=== PATIENT | male | born 1970 | race Caucasian/White ===

== ENCOUNTER 2023-02-22 11:45 | Emergency (ER) | payer OTHER, SELFPAY ==
[2023-02-22 12:10] VITALS: BP 116/73; PULSE 86; RESP 18; TEMP 36.7; O2SAT 98
--- NOTE | 2023-02-22 12:11 | ED.EYEPROB ---
HPI - Eye Problem General Chief complaint: Eye Problems Stated complaint: Foreign Body in Eyes Source: patient and RN notes reviewed History of Present Illness HPI Narrative: 52 yo M presents to urgent care with complaints of bilateral eye irritation, worse on the right side. Pt states he was pulling insulation out of the bottom of a car when dust flew out and went in his eyes. Pt states he immediately irrigated both of his eyes. Pt states the pain is radiating to his brain. Does not wear contacts. Pt is unknown on the last Tdap. Related Data Home Medications Medication Instructions Recorded Confirmed albuterol sulfate 90 mcg/actuation inhalation 02/22/23 aerosol inhaler aspirin 81 mg tablet,delayed mg 02/22/23 release atorvastatin 40 mg tablet mg 02/22/23 budesonide-formoterol HFA 160 inhalation 02/22/23 mcg-4.5 mcg/actuation aerosol inhaler (Symbicort) carvedilol 6.25 mg tablet mg 02/22/23 glipizide 5 mg tablet mg 02/22/23 insulin glargine 100 unit/mL (3 unit subcut 02/22/23 mL) subcutaneous pen (Basaglar KwikPen U-100 Insulin) insulin lispro 100 unit/mL subcut 02/22/23 subcutaneous pen (Humalog KwikPen (U-100) Insulin) metformin 1,000 mg tablet mg 02/22/23 metoclopramide HCl 10 mg tablet mg 02/22/23 pantoprazole 40 mg tablet,delayed mg PO 02/22/23 02/22/23 release Allergies Allergy/AdvReac Type Severity Reaction Status Date / Time No Known Allergies Allergy Unverified 02/22/23 12:17 Review of Systems Review of Systems: CONSTITUTIONAL: Denies fever, chills, or sweats. EYES: bilateral eye irritation ENT: Denies otalgia and sore throat CARDIOVASCULAR: Denies chest pain, palpitations, or edema. RESPIRATORY: Denies cough or dyspnea. GASTROINTESTINAL: Denies abdominal pain, nausea, vomiting, or diarrhea. GENITOURINARY: Denies dysuria or hematuria. SKIN: Denies rash or itching. MUSCULOSKELETAL: Denies back pain, joint pain, or myalgia. NEUROLOGIC: Denies headache, numbness, or weakness. Pertinent positives per HPI. [facility] Family History Family History (Updated 09/20/12 @ 13:37 by DOCTOR UNKNOWN) Other Asthma Cerebrovascular accident Depression Diabetes mellitus Family history of arthritis Family history of hearing loss Family history of kidney disease Family history of lung cancer Family history of lung disease Family history of mental disorder Family history of migraine headaches Family history of seizure disorder Comments At the time of my signature, I reviewed and agree with the nursing past medical, surgical, social, and family history. There is no relevant family history pertinent to the patient complaint. Exam Narrative: GENERAL: This is a well-nourished, well-developed patient, in no apparent distress. HEAD: normocephalic, atraumatic. EYES: Sclera clear/white. Vision is grossly intact. Small black speck in the 7:00 position of the right cornea. Aggarwal lamp exam conducted on both eyes. Abrasion noted to the left cornea. Lid inversions performed on both with no acute findings. EARS: External ears normal, auditory canals clear and without drainage. Hearing grossly intact. NOSE: External nose normal with no obvious nasal discharge, nares without redness, no rhinorrhea. THROAT: Mucous membranes moist, posterior pharynx clear. NECK: Neck supple, non-tender without lymphadenopathy, masses or thyromegaly. CARDIOVASCULAR: Regular rate RESPIRATORY: No respiratory distress SKIN: warm, intact with no suspicious lesions or rash, good texture and turgor. NEURO: awake, alert, and oriented to person, place and time. There were no obvious focal neurologic abnormalities. Course Course Level of Care: Express Care Visit Vital Signs Vital signs: Vital Signs Temperature 98.1 F 02/22/23 12:10 Pulse Rate 86 02/22/23 12:10 Respiratory Rate 18 02/22/23 12:10 Blood Pressure 116/73 02/22/23 12:10 Pulse Oximetry 98 02/22/23 12:1
== END 2023-02-22 12:35 | disposition short-term general hospital (02) ==
PROVIDERS: Emergency Provider Nurse Practitioner Family; PCP Family Medicine
DX: T15.91XA Foreign body on external eye, part unspecified, right eye, initial encounter (principal); Z79.82 Long term (current) use of aspirin; Z79.4 Long term (current) use of insulin; Z79.899 Other long term (current) drug therapy
CPT/HCPCS: 99213; A9270; G0463

== ENCOUNTER 2023-06-14 08:41 | Emergency (ER) | payer OTHER, SELFPAY ==
[2023-06-14 08:54] VITALS: BP 131/87; PULSE 108; RESP 18; TEMP 36.5; O2SAT 96
--- NOTE | 2023-06-14 09:05 | ED.GENADULT ---
HPI - General Adult General Chief complaint: Headache Stated complaint: Pain in head down to nose Source: patient, RN notes reviewed and old records reviewed Mode of arrival: ambulatory Limitations: no limitations History of Present Illness HPI narrative: 52-year-old male patient presents with sudden onset right-sided head pain that woke patient from sleep. Patient states woke up and blow nose. Pt states it was extremely painful. Patient states had fluid leaking out of nose the rest of the night. Patient's rates headache 10/10 at this time with pain behind right eye, right head, right nose. MD complaint: Headache Onset (ago): hour(s) (8) Location: head Severity: severe Severity scale (1-10): >10 Quality: constant Relieving factors: none Exacerbating factors: none Related Data Home Medications Medication Instructions Recorded Confirmed albuterol sulfate 90 mcg/actuation See Rx Instructions .Route 02/22/23 02/22/23 aerosol inhaler .COMPLEX PRN sob aspirin 81 mg tablet,delayed 81 mg PO DAILY 02/22/23 02/22/23 release atorvastatin 40 mg tablet 40 mg PO DAILY 02/22/23 02/22/23 budesonide-formoterol HFA 160 See Rx Instructions .Route .COMPLEX 02/22/23 02/22/23 mcg-4.5 mcg/actuation aerosol inhaler (Symbicort) carvedilol 6.25 mg tablet 6.25 mg PO BID 02/22/23 02/22/23 glipizide 5 mg tablet 5 mg PO BID 02/22/23 06/14/23 insulin glargine 100 unit/mL (3 See Rx Instructions .Route .COMPLEX 02/22/23 02/22/23 mL) subcutaneous pen (Basaglar KwikPen U-100 Insulin) insulin lispro 100 unit/mL See Rx Instructions .Route .COMPLEX 02/22/23 02/22/23 subcutaneous pen (Humalog KwikPen (U-100) Insulin) metformin 1,000 mg tablet 1,000 mg PO BID 02/22/23 06/14/23 metoclopramide HCl 10 mg tablet 10 mg PO BID 02/22/23 06/14/23 pantoprazole 40 mg tablet,delayed 40 mg PO DAILY 02/22/23 02/22/23 release Allergies Allergy/AdvReac Type Severity Reaction Status Date / Time No Known Allergies Allergy Unverified 02/22/23 12:17 Review of Systems Constitutional: Constitutional: Reports no additional constitutional complaints, Denies body ache(s), Denies chills, Reports fatigue, Denies fever(s) and Reports headache(s) Eyes: Eyes: Reports no additional eye complaints, Denies blurry vision and Reports eye pain ( Right eye) ENT: Reports system reviewed and no additional complaints, except as documented, Denies vertigo, Denies dizziness, Denies ear discharge, Denies otalgia, Denies facial pain, Denies headache(s), Denies nasal congestion, Reports nasal discharge, Reports nose pain (right sided. ), Denies sinus pain, Denies sinus pressure and Denies sore throat Cardiovascular: Cardiovascular: Reports no additional cardiovascular complaints, Denies chest pain, Denies chest pain at rest, Denies rapid heart rate and Denies dyspnea Respiratory: Respiratory: Reports no additional respiratory complaints, Denies chest congestion, Denies cough, Denies pain on inspiration, Denies pain with cough and Denies dyspnea Gastrointestinal: Gastrointestinal: Denies abdominal pain, Denies diarrhea, Denies nausea and Denies vomiting Integumentary/Breasts: Skin/Breast: Denies rash Neurologic: Reports system reviewed and no additional complaints, except as documented, Denies vertigo, Denies dizziness and Reports headache(s) Endocrine: Endocrine: Denies fatigue [facility] Family History Family History Other Asthma Cerebrovascular accident Depression Diabetes mellitus Family history of arthritis Family history of hearing loss Family history of kidney disease Family history of lung cancer Family history of lung disease Family history of mental disorder Family history of migraine headaches Family history of seizure disorder Comments At the time of my signature, I reviewed and agree with the nursing past medical, surgical, social, and family history. There is no relevant family his
== END 2023-06-14 09:15 | disposition short-term general hospital (02) ==
PROVIDERS: Emergency Provider Registered Nurse; PCP Family Medicine
DX: R51.9 Headache, unspecified (principal); I20.9 Angina pectoris, unspecified; E78.00 Pure hypercholesterolemia, unspecified; I10 Essential (primary) hypertension; J44.9 Chronic obstructive pulmonary disease, unspecified; K76.0 Fatty (change of) liver, not elsewhere classified; E11.9 Type 2 diabetes mellitus without complications; Z85.028 Personal history of other malignant neoplasm of stomach; Z92.3 Personal history of irradiation
CPT/HCPCS: 99213; G0463

== ENCOUNTER 2023-06-14 09:39 | Emergency (ER) | payer OTHER, SELFPAY ==
--- NOTE | ~2023-06-14 | CT_ITS ---
EXAMINATION: CT brain wo con DATE: 06/14/2023 11:11 INDICATION: Right-sided headache. TECHNIQUE: Computed tomography (CT) of the head was performed without intravenous contrast. The mA wa s adjusted according to patient size. Iterative reconstruction technique was employed. The dose-lengt h product was 756.67 mGy-cm. COMPARISON: None FINDINGS: There is no intracranial hemorrhage, acute infarction, or abnormal intracranial mass lesion . The ventricles are normal in size. The paranasal sinuses are clear. The mastoid air cells are pradip l. The orbits are normal. IMPRESSION: 1. Normal brain. Reviewed, dictated and finalized at location A. EXPERIENCE ARCHITECT IMPRESSION: 1. Normal brain.
--- NOTE | ~2023-06-14 | XR_ITS ---
EXAMINATION: XR chest 2V DATE: 06/14/2023 11:01 INDICATION: Shortness of breath. Cough. TECHNIQUE: Frontal and lateral views of the chest were obtained. COMPARISON: Chest 2 views 12/16/2012, chest CT 12/16/2012 FINDINGS: There are peripheral airspace opacities in right upper lobe. No pleural effusion or pneumot horax. The heart size is normal. IMPRESSION: 1. Peripheral airspace opacities in right lung upper lobe, consistent with scarring versus pneumonia. Reviewed, dictated and finalized at location A. O CALLER IMPRESSION: 1. Peripheral airspace opacities in right lung upper lobe, consistent with scar ring versus pneumonia.
[2023-06-14 09:40] VITALS: BP 134/86; PULSE 100; RESP 16; TEMP 36.9; O2SAT 100
--- NOTE | 2023-06-14 10:15 | ECG_ITS ---
Measurements Intervals [place] Rate: 94 P: 53 [place]: 151 QRS: 34 QRSD: 89 T: 49 QT: 345 QTc: 432 Interpretive Statements SINUS RHYTHM BORDERLINE R WAVE PROGRESSION, ANTERIOR LEADS BORDERLINE ECG NO PREVIOUS ECG AVAILABLE FOR COMPARISON Electronically Signed On 06-14-2023 11:33:49 TEST FIXTURE ASSEMBLER by Ricardo Hodges D.O.
[2023-06-14 10:24] LABS: Basophils Absolute Auto 0.1 K/mm3 (0.0-0.1); Basophils Percent Auto 0.5 % (0.2-1.2); Eosinophils Absolute Auto 0.1 K/mm3 (0-0.3); Eosinophils Percent Auto 0.6 % (0-4.4); Hematocrit 43.4 % (42.0-52.0); Hemoglobin 14.9 g/dL (14.0-18.0); Immature Granulocyte Absolute 0.07 K/mm3 (0.00-0.031); Immature Granulocyte Percent A 0.4 % (0-0.5); Lymphocytes Absolute Auto 2.81 K/mm3 (0.9-3.2); Lymphocytes Percent Auto 17.3 % (18.3-44.2); Mean Corpuscular HGB Conc 34.3 g/dl (32-36); Mean Corpuscular Hemoglobin 30.1 pg (26-34); Mean Corpuscular Volume 87.7 fl (80-100); Mean Platelet Volume 10.9 fl (7.4-10.4); Neutrophils Absolute Auto 12.2 K/mm3 (1.3-6.7); Neutrophils Percent Auto 75.2 % (45.5-73.1); Platelet Count Result 268 k/mm3 (150-375); Red Blood Count 4.95 M/mm3 (4.6-6.20); Red Cell Distribution Width 12.7 % (11.5-14.5); White Blood Count 16.3 K/mm3 (4.5-10.0)
--- NOTE | 2023-06-14 10:30 | PC.NURSE ---
Pt to XRAY via stretcher at this time.
[2023-06-14 10:34] LABS: Alanine Aminotransferase 27 U/L (6-50); Albumin Level 4.1 g/dL (3.5-5.1); Alkaline Phosphatase 123 U/L (38-126); Anion Gap 11 mmol/L (8-16); Aspartate Amino Transferase 20 U/L (17-59); Bilirubin,Total 0.9 mg/dL (0.2-1.3); Blood Urea Nitrogen 13 mg/dL (9-20); Calcium 9.5 mg/dL (8.4-10.2); Carbon Dioxide 25 mmol/L (22-30); Chloride 101 mmol/L (98-107); Estimated CRCL calculation 96 ml/min; Estimated Glomerular Filt Rate > 60; Glucose 236 mg/dL (65-110); Sodium 137 mmol/L (137-145)
[2023-06-14 10:34] LABS: Influenza A QL RT-PCR Negative (Negative); Influenza B QL RT-PCR Negative (Negative); RSV RNA, RT-PCR Negative (Negative); SARS-CoV-2 RNA PCR Negative (Negative)
--- NOTE | 2023-06-14 10:34 | ED.HA ---
HPI - Headache General Chief Complaint: Headache Stated Complaint: HEADACHE,NASAL DRAINAGE Time Seen by Provider: 06/14/23 09:58 Source: patient Mode of arrival: ambulatory Limitations: no limitations History of Present Illness HPI Narrative: Patient is a 52-year-old male who presents the ED with multiple complaints. Patient reports having upper respiratory symptoms for the last 1 month including nasal drainage. He has had inflammation, redness, tenderness to his nose for that time. He states last night he developed a significant right-sided headache behind his right eye and face. He blew his nose aggressively at that time and reported having a significant amount of nasal drainage. States this improved his REED. He then states he woke up with a puddle of snot on his pillow. Today, the headache recurred and has been more persistent and severe. Mostly present in his right periorbital region. He has not taken anything for the pain. Denies vision changes, dizziness, lightheadedness. No history of migraines. He does also report having intermittent chest pain and upper back pain for the last 1 month. Denies changes in the today. Does report occasional shortness of breath. Denies fevers Related Data Home Medications Medication Instructions Recorded Confirmed albuterol sulfate 90 mcg/actuation See Rx Instructions .Route 02/22/23 02/22/23 aerosol inhaler .COMPLEX PRN sob aspirin 81 mg tablet,delayed 81 mg PO DAILY 02/22/23 02/22/23 release atorvastatin 40 mg tablet 40 mg PO DAILY 02/22/23 02/22/23 budesonide-formoterol HFA 160 See Rx Instructions .Route .COMPLEX 02/22/23 02/22/23 mcg-4.5 mcg/actuation aerosol inhaler (Symbicort) carvedilol 6.25 mg tablet 6.25 mg PO BID 02/22/23 02/22/23 glipizide 5 mg tablet 5 mg PO BID 02/22/23 06/14/23 insulin glargine 100 unit/mL (3 See Rx Instructions .Route .COMPLEX 02/22/23 02/22/23 mL) subcutaneous pen (Basaglar KwikPen U-100 Insulin) insulin lispro 100 unit/mL See Rx Instructions .Route .COMPLEX 02/22/23 02/22/23 subcutaneous pen (Humalog KwikPen (U-100) Insulin) metformin 1,000 mg tablet 1,000 mg PO BID 02/22/23 06/14/23 metoclopramide HCl 10 mg tablet 10 mg PO BID 02/22/23 06/14/23 pantoprazole 40 mg tablet,delayed 40 mg PO DAILY 02/22/23 02/22/23 release Allergies Allergy/AdvReac Type Severity Reaction Status Date / Time No Known Allergies Allergy Unverified 02/22/23 12:17 Review of Systems Review of Systems: CONSTITUTIONAL: Denies fever, chills, or sweats. ENT: see HPI. CARDIOVASCULAR: See HPI. RESPIRATORY: See HPI. GASTROINTESTINAL: Denies abdominal pain, nausea, vomiting. MUSCULOSKELETAL: See HPI. NEUROLOGIC: See HPI. All systems reviewed & are unremarkable except as noted in HPI and below PMFSH Family History Family History Other Asthma Cerebrovascular accident Depression Diabetes mellitus Family history of arthritis Family history of hearing loss Family history of kidney disease Family history of lung cancer Family history of lung disease Family history of mental disorder Family history of migraine headaches Family history of seizure disorder Exam Narrative: GENERAL: Well appearing, well-nourished, non-toxic, in no acute distress. HEAD: Normocephalic, atraumatic. EYES: PERRL/EOMI, conjunctiva clear. ENT: Exterior tip of nose mildly erythematous and indurated. Focal TTP. Deviated septum. No active drainage or evident focal abscess. Partially edentulous. RESPIRATORY: Airway patent, respirations nonlabored. Clear to auscultation bilaterally, no rales, rhonchi, wheezing. CARDIOVASCULAR: Regular rate and rhythm without murmurs, rubs, or gallops. MUSCULOSKELETAL: Moves all extremities. No gross deformities. SKIN: Warm, dry, normal color. NEURO: A&O X3. Speech clear. Cranial nerves II-XII grossly intact. Steady gait. No ataxic movements. No focal neurologic
[2023-06-14] MEDS: SODIUM CHLORIDE 0.9% IV 1,000 ML 999 ML IV CONT (10:56)
[2023-06-14] MEDS: diphenhydrAMINE HCl INJ 50 MG/ML VIAL 25 MG IV PUSH (10:56)
[2023-06-14] MEDS: METOCLOPRAMIDE HCL INJ 10 MG/2 ML VIAL IV PUSH (10:56)
[2023-06-14] MEDS: ACETAMINOPHEN 500 MG TABLET 1000 MG PO (10:57)
--- NOTE | 2023-06-14 11:19 | PC.NURSE ---
Main lab called at 1119 to add on D Dimer, PT INR PTT, and Trop I to pt's specimens in lab.
[2023-06-14 11:40] LABS: Troponin I < 0.012 ng/mL (0.000-0.034)
[2023-06-14 11:45] LABS: Prothrombin Time 13.4 Seconds (11.1-14.7)
[2023-06-14 11:46] LABS: Partial Thromboplastin Time 27.6 SECONDS (22.3-36.8)
[2023-06-14 11:53] VITALS: BP 130/88; PULSE 95; RESP 22; O2SAT 99
[2023-06-14 11:56] LABS: D Dimer 0.33 ug/mL (<0.48)
[2023-06-14 12:26] VITALS: BP 117/86; PULSE 87; RESP 19; O2SAT 98
[2023-06-14 13:21] VITALS: BP 111/89; PULSE 87; RESP 21; O2SAT 99
== END 2023-06-14 13:22 | disposition home or self-care (01) ==
PROVIDERS: Emergency Medicine; Emergency Provider Physician Assistant; PCP Family Medicine
DX: R51.9 Headache, unspecified (principal); J18.9 Pneumonia, unspecified organism; J34.0 Abscess, furuncle and carbuncle of nose; Z20.822 Contact with and (suspected) exposure to COVID-19; E11.9 Type 2 diabetes mellitus without complications; Z79.82 Long term (current) use of aspirin; Z79.4 Long term (current) use of insulin; Z79.84 Long term (current) use of oral hypoglycemic drugs; R94.31 Abnormal electrocardiogram [ECG] [EKG]
CPT/HCPCS: 36415; 70450; 71046; 80053; 84484; 85025; 85380; 85610; 85730; 87637; 93005; 96361; 96374; 96375; 99284; A9270; J1200; J2765; J7030

== ENCOUNTER 2024-12-07 11:57 | Emergency (ER) | payer OTHER, SELFPAY ==
--- OUTSIDE RECORDS SUMMARY | 2024-12-07 11:59 | XMS_ITS | Referral Summary ---
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 Comment: The ADA recommends reporting an estimated Average Glucose (eAG) with all Hemoglobin A1c results using the equation derived from a study of 507 normal and diabetic adults. Minority populations were underrepresented and children were not included. (Diabetes Care 31:4709-3692, 2008). The eAG is not equivalent to a fasting glucose. Blood 03/08/2024 12:1 5 AM CDT 03/08/2024 1:32 AM CDT Marianela Clancy MD LAB BLOOD ORDERABLES Final Res ult Performing Organization Address [facility] Co de Phone Number [facility] [address] [facility] [place] [address] * Lipid panel (03/08/2024 12:15 AM CDT) Cholesterol 148 30 - 199 mg/dL Comment: Interpretive Data Ages < or = 19 years Acceptable: <170 mg/dL Borderline high: 170-199 mg/dL High: >or= 200 mg/dL Ages > or = 20 years Desirable: <200 mg/dL Borderline high: 200-239 mg/dL High: >or= 240 mg/dL Literature References: 1. Expert Panel on Integrated Guidelines for Cardiovascular Health and Risk Reduction in Children and Adolescents. Pediatrics 2011;128:S213 2. NCEP Expert Panel. Circulation 2004;110:227 Current Interpretive Data was last revised on 2018. Triglycerides 106 <=149 mg/dL [facility] ([place]) Comment: Interpretive Data Ages < or = 9 years Acceptable: <75 mg/dL Borderline high: 75-99 mg/dL High: >or= 100 mg/dL Ages 10 to 20 years Acceptable: <90 mg/dL Borderline high: 90-129 mg/dL High: >or= 130 mg/dL Ages > or = 20 years Desirable: <150 mg/dL Borderline high: 150-199 mg/dL High: 200-499 mg/dL Very high: >or= 499 mg/dL Literature References: 1. Expert Panel on Integrated Guidelines for Cardiovascular Health and Risk Reduction in Children and Adolescents. Pediatrics 2011;128:S213 2. NCEP Expert Panel. Circulation 2004;110:227 Current Interpretive Data was last revised on 2018. HDL 50 >=40 mg/dL [facility] ([place]) Comment: Interpretive Data Ages < or = 19 years Acceptable: >45 mg/dL Borderline low: 40-45 mg/dL Low: <40 mg/dL Ages > or = 20 years Desirable: >or= 60 mg/dL Low: <40 mg/dL Literature References: 1. Expert Panel on Integrated Guidelines for Cardiovascular Health and Risk Reduction in Children and Adolescents. Pediatrics 2011;128:S213 2. NCEP Expert Panel. Circulation 2004;110:227 Current Interpretive Data was last revised on 2018. LDL, calculated 79 <=129 mg/dL [facility] ([place]) Comment: Interpretive Data Ages < or = 19 years Acceptable: <110 mg/dL Borderline high: 110-129 mg/dL High: >or= 130 mg/dL Ages > or = 20 years Optimal: <100 mg/dL Near optimal: 100-129 mg/dL Borderline high: 130-159 mg/dL High: >160 mg/dL Calculated using the Miguel Angel LDL-C estimating equation. This equation was implemented on 2024. Prior to this date LDL-C was estimated using the Friedewald equation. Literature References: 1. Expert Panel on Integrated Guidelines for Cardiovascular Health and Risk Reduction in Children and Adolescents. Pediatrics 2011;128:S213 2. NCEP Expert Panel. Circulation 2004;110:227 3. Miguel Angel Chavira et al. GRETA Cardiol. 2020 October 02;5(5):540-548. doi: 10.1001/[email or web address].2020.0013 Current Interpretive Data was last revised on 2024. Non-HDL Cholesterol 98 mg/dL [facility] ([place]) Comment: Interpretive Data Ages < or = 19 years Acceptable: <120 mg/dL Borderline high: 120-144 mg/dL High: >145 mg/dL Ages > or = 20 years When triglycerides are >200 mg/dL, Non-HDL cholesterol is a secondary target of therapy with treatment goals that are 30 mg/dL greater than the LDL cholesterol target. Literature References: 1. Expert Panel on Integrated Guidelines for Cardiovascular Health and Risk Reduction in Children and Adolescents. Pediatrics 2011;128:S213 2. NCEP Expert Panel. Circulation 2004;110:227 Current Interpretive Data was last revised on 2018. Chol/HDL ratio 3 [facility] ([place]) Blood 03/08/2024 12:1 5 AM CDT 03/08/2024 12:19 AM CDT us Marianela Clancy MD LAB BLOOD ORDERABLES Final Res ult [facility] ([place]) 1 [facility] [place] [address] * Albumin Creatinine Ratio, Urine (01/12/2023 10:01 AM CDT) Albumin Ur 20.0 mg/L [facility] ([place]) Comment: Interpretive Data No reference range established. Current interpretive data was last revised 2018. Testing performed by: [facility], [address] [place] [address], [place]., [address] Creatinine Ur 207.5 mg/dL [facility] ([place]) Comment: Interpretive Data No reference range established. Current interpretive data was last revised 2018. Testing performed by: [facility], [address] [place] [address]., [address] Albumin Creatinine Ratio, Ur 10 1 - 29 mg/g [facility] ([place]) Comment:Testing performed by : [address] [address] Urine 01/12/2023 10:0 1 AM CDT 01/12/2023 1:42 PM CDT Sommer Fenton NP LAB URINE ORDERABLES Final Resu lt [facility] ([place]) 1 [facility] [place] [address] * Hepatitis panel, acute (11/14/2022 7:48 AM CDT) Hep A IgM Nonreactive Nonreactive [facility] ([place]) Comment: Interpretive Data: If Hep A IgM Ab is reported as Equivocal, a new sample should be drawn in two weeks for testing. Current interpretive data was last revised on 19. Testing performed by: [address] [address] Hep B core IgM Nonreactive Nonreactive C ERNER [facility] ([place]) Comment: Interpretive Data If HepB Core IgM Ab is reported as Equivocal, a new sample should be drawn in two weeks for testing. Current interpretive data was last revised on 19. Testing performed by: [facility], [address] [place] [address]., [address] Hep C Ab Nonreactive Nonreactive [facility] ([place]) Comment: Interpretive Data Nonreactive: Antibodies to HCV not detected. Does NOT exclude the possibility of recent exposure to HCV. Equivocal: Equivocal for HCV antibodies. Supplemental molecular testing will be automatically performed to determine infection status in accordance with current CDC screening recommendations. Reactive: Positive for HCV antibodies. This may represent current or past HCV infection. Supplemental molecular testing will be automatically performed to determine current infection status in accordance with current CDC screening recommendations. Interpretive data was last revised on 2019. Testing performed by: [address] [address] HepBsAg Nonreactive Nonreactive [facility] ([place]) Comment:Testing performed by : [address] [address] Blood 11/14/2022 7:48 AM CDT 11/14/2022 10:35 AM CDT us Tamie CORDOBA LAB MICROBIOLOGY - GENER AL ORDERABLES Final Result [facility] [place]) [address] Department of Laboratories [place], [place] [id number] * COLONOSCOPY (09/14/2022 1:05 PM CDT) Anatomical Region Laterality Modality Other Narrative Procedure Note Dorothy Palmer MD - 09/14/2022 1:05 PM CDT [facility] Patient Name: Keaton Ortega Procedure Date: 09/14/2022 1:05 PM Date of : 1970 Admit Type: Outpatient Age: 51 Gender: Male Attending MD: Dorothy Palmer M.D. Room: [facility] ENDOSCOPY ROOM 1 Note Status: Finalized Patient Profile: This is a 51 year old male. History of adenomapolyps and inadequate colon preparation last year. Repeat colonoscopy today. Procedure: Colonoscopy Indications: High risk colon cancer surveillance: Personalhistory of colonic polyps, Last colonoscopy: February2022 Referring MD: El Reese M.D. Providers: Dorothy Palmer M.D. Impression: - Stool in the entire examined colon. - One 14 mm polyp in the descending colon, removed with a cold snare. Resected and retrieved. - Internal hemorrhoids. Recommendation: - Await pathology results. - Repeat colonoscopy in 6 months for surveillancewith 2 days colon preparation. Please followinstructions. Medicines: Monitored Anesthesia Care Complications: No immediate complications. Estimated Blood Loss: Estimated blood loss: none. Procedure: Pre-Anesthesia Assessment: - Prior to the procedure, a History and Physicalwas performed, and patient medications and allergieswere reviewed. The patient's tolerance of previous anesthesia was also reviewed. The risks andbenefits of the procedure and the sedation options and risks were discussed with the patient. All questions were answered, and informed consent was obtained. Prior Anticoagulants: The patient has taken noanticoagulant or antiplatelet agents. ASA Grade Assessment: II -A patient with mild systemic disease. After reviewing the risks and benefits, the patient was deemed in satisfactory condition to undergo the procedure. The benefits, risks and alternatives of theprocedure and sedation were discussed and informed consentwas obtained. All questions were answered. Please referto the signed informed consent document in the medical record. The bowel preparation used was Miralax and bisacodyl tablets via extended prep with split dose instruction. The scope was passed under directvision. The Pediatric Colonoscope [id number] was introduced through the anus and advanced to the the ileocecal valve. The quality of the bowelpreparation was inadequate. Bowel prep was administered using a split dose. Findings: The perianal and digital rectal examinations were normal. A moderate amount of semi-liquid stool was found in the entire colon, interfering with visualization. Lavage of the area was performed, resulting in incomplete clearance with fair visualization. A 14 mm polyp was found in the descending colon. The polyp wassessile. The polyp was removed with a cold snare. Resection and retrieval were complete. Internal hemorrhoids were found during retroflexion. The hemorrhoids were small. Electronically signed by Dorothy Palmer M.D. Dorothy Palmer M.D. 09/14/2022 3:11:44 PM Number of Addenda: 0 Note Initiated On: 09/14/2022 1:05 PM Procedure Code(s): --- Professional --- 570[address], Colonoscopy, flexible; with removal of tumor(s), polyp(s), or other lesion(s) by snare technique Diagnosis Code(s): --- Professional --- Z86.010, Personal history of colonic polyps K64.8, Other hemorrhoids D12.4, Benign neoplasm of descending colon CPT copyright 2020 [employer]. All rights reserved. The codes documented in this report are preliminary and upon halfway house counselor reviewmay be revised to meet current compliance requirements. Recognized by the [employer] for promoting quality in endoscopy Dorothy Palmer MD ENDOSCOPY PROCEDURES Final Result * Diabetic Eye Exam (07/19/2022) Historical Provider HEALTH MAINTENANCE Final Result from Last 3 Months or Most Recently Relevant to Health Maintenance Insurance [facility] Advance Directives For more information, please contact: [phone] * Full Code (Latest Code Status on File) Date Activated Date Inactivated Comments 07/03/2024 1:22 PM 07/03/2024 10:24 PM * Full Code Date Activated Date Inactivated Comments 03/07/2024 9:43 PM 03/11/2024 7:04 PM * Full Code Date Activated Date Inactivated Comments 09/06/2023 4:27 PM 09/10/2023 6:50 PM * Full Code Date Activated Date Inactivated Comments 01/30/2023 3:22 PM 01/31/2023 6:39 PM * Full Code Date Activated Date Inactivated Comments 11/14/2022 2:37 PM 11/15/2022 6:43 PM Care Teams Language Assistant Relationship Specialty Start Date End Date El Reese MD [address] [facility] [address] [address] PCP - General 11/29/20 Juju Handley DO Consulting Physician Cardiology 11/27/19 Nuvia Cazares MD [address] [facility] [address] [place] [address] Consulting Physician Cardiology 10/21/21 Dorothy Palmer MD [address] [place] [address] [address] [place] [address] Consulting Physician Gastroenterology 11/15/22
--- OUTSIDE RECORDS SUMMARY | 2024-12-07 11:59 | XMS_ITS | Clinical Summary ---
Author Organization [facility] Address [address] [address] Phone Care Team Providers Care Community Health Advocate Name Role Phone Deb Krishnan MD Unavailable [phone] El Reese MD Primary Care Provider [phone] Allergies No known active allergies Medications aspirin 81 MG Chewable Tablet Take 1 Tab by mouth daily. 100 Tab 07/10/19 18 Active ipratropium-albute rol (DUO-NEB) 0.5-2.5 (3) MG/3ML Solution 3 ML BY NEBULIZATION ROUTE 4 TIMES DAILY. 360 mL 12/24/19 20 Active metFORMIN (GLUCOPHAGE) 1000 MG TabletIndications: Type 2 diabetes mellitus without complication, with long-term current use of insulin Take 1 Tab by mouth 2 times daily. 180 Tab 2 12/23/19 20 Active albuterol 108 (90 Base) MCG/ACT Aerosol SolutionIndication s:Panlobular emphysema (HCC) take 1-2 Puffs by inhalation every 4 hours as needed for Wheezing. 1 Inhaler 12/23/19 20 Active fluticasone-salmet giovanni (ADVAIR) 250-50 MCG/DOSE AEROSOL POWDER, BREATH ACTIVATEDIndicatio ns:Panlobular emphysema (HCC) take 1 Puff by inhalation 2 times daily. 1 Each 3 12/23/19 20 Active atorvastatin (LIPITOR) 40 MG TabletIndications: Essential hypertension,Mixed hyperlipidemia Take 1 Tab by mouth daily. 90 Tab 12/23/19 20 Active SYMBICORT 160-4.5 MCG/ACT Aerosol TAKE 2 PUFFS BY INHALATION 2 TIMES DAILY. 10.2 g 5 01/03/20 20 Active sucralfate (CARAFATE) 1 GM Tablet Take 1 Tablet by mouth every 6 hours. 30 Tablet 09/14/19 21 Active omeprazole (PriLOSEC) 20 MG CAPSULE DELAYED RELEASE Take 1 Capsule by mouth daily. 30 Capsule 09/14/19 21 Active gabapentin (NEURONTIN) 300 MG Capsule Take 1 Capsule by mouth 3 times daily. 90 Capsule 01/10/20 22 Active naproxen (NAPROSYN) 500 MG Tablet Take 1 Tablet by mouth 2 times daily as needed for Moderate or more severe pain. 20 Tablet 08/11/19 24 Active triamcinolone (KENALOG) 0.1 % Cream Apply 3 times daily. 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 COPD (chronic obstructive pulmonary disease) Neuropathy, arm, unspecified laterality 01/27/20 17 Right upper quadrant abdominal pain 01/18/2017 History of bladder cancer 01/17/2017 Benign prostatic hyperplasia with urinary obstru ction 04/03/2016 Tobacco dependence syndrome 03/17/2016 Chronic bilateral low back pain without sciatica 03/17/2016 Dysuria 01/25/2016 Malignant neoplasm of overlapping sites of bladd er 07/28/2015 Chest pain in adult 07/05/2015 Neck pain 07/05/2015 Heart murmur 06/14/2015 Cough 06/14/2015 Type 2 diabetes mellitus, wi thout long-term current use of insulin 05/07/2015 HTN (hypertension) 05/07/2015 Anxiety 05/07/2015 Depressed 05/07/2015 Hyperlipidemia 05/07/2015 Gangrenous pneumonia 04/16/2014 Overview (07/03/2017): Overview: Necrotizing pneumonia Resolved Problems Problem Noted Date Diagnosed Date Resolved Date Acute diarrhea 06/14/2017 06/16/2017 Syncope and collapse 06/14/2017 018 Cryptococcal pneumonitis 07/28/2015 Encounters Date Type Department Care Team Description 09/10/2024 5:59 PM CDT - 09/10/2024 7:31 PM CDT Emergency [facility] [address] [place] [id number] Luke Serrato MD Rash Discharge Disposition: Discharged to home or Selfcare 09/10/2024 Travel from Last 3 Months Immunizations Immunization Administration Dates Next Due Influenza Vaccine greater than 3 yrs 03/06/2016 Influenza Vaccine, Quadrivalent, PF 02/20/2018,0 07/03/2017,06/16/2017() Pneumococcal Vaccine Adult - 23 Valent 8 Family History Medical History Relation Name Comments Asthma Father Diabetes Father Hypertension Father Diabetes Mother Heart Attack Mother Hypertension Mother Stroke Mother Relation Name Status Comments Father Mother Alive Social History Tobacco Use Types Packs/Day Years Used Date Smoking Tobacco: Former Cigarettes 1 20 Cigars Smokeless Tobacco: Never Tobacco Cessation:Counseling Given: Not Answered Alcohol Use Standard Drinks/Week Comments Not Currently 0 (1 standard drink = 0.6 oz pur e alcohol) PHQ-2 Answer Date Recorded Total Score - Questions 1-9 0 12/03 Education Answer Date Recorded What is the highest level of school you have completed or the highest degree you have received? 8th grade 12/23/2019 Sexually Active Control Partners Comments Yes Female Sex and Gender Information Value Date Recorded Sex Assigned at Male 01/23/2023 7:54 PM CDT Legal Sex Male 10:18 PM CDT Gender Identity Male 01/23/2023 7:54 PM CDT Sexual Orientation Not on file Last Filed Vital Signs Vital Sign Reading Time Taken Comments Blood Pressure 134/87 09/10/2024 7:15 PM CDT Pulse 104 09/10/2024 7:15 PM CDT Temperature 35.9 C (96.7 F) 09/10/2024 5:12 PM CDT Respiratory Rate 20 09/10/2024 5:12 PM CDT Oxygen Saturation 97% 09/10/2024 7:15 PM CDT Inhaled Oxygen Concentration - - Weight 89.4 kg (197 lb) 09/10/2024 5:12 PM CDT Height 175.3 cm (5' 9) 09/10/2024 5:12 PM CDT Body Mass Index 29.09 09/10/2024 5:12 PM CDT Plan of Treatment Health Maintenance Due Date Last Done Comments Diabetes: Eye Exam 1972 Hepatitis B Immunization (1 of 3 - 19+ 3-dose series) 12/16/1991 Zoster Immunization (1 of 2) 12/16/1991 Diabetes: Foot Exam 10/21/2015 10/20/2014 Cologuard 2017 Immunochemical Fecal Occult Blood 2017 Pneumococcal Immunization (50+ years) (2 of 2 - PCV) 07/03/2018 07/03/2017 SARS-COV-2 Immunization ( season) 2024 01/29/2022, 05/30/2021, 05/09/2021 Diabetes: Hemoglobin A1c 09/06/2024 024, 09/07/2023, 05/17/2023, Additional history exists Influenza Immunization (Season Ended) 2025 03/01/2020, 02/20/2018, 07/03/2017, Additional history exists Diabetes: Nephropathy Screening 09/10/2025 09/10/2024, 08/11/2023, 01/23/2023, Additional history exists Colonoscopy 09/14/2032 09/14/2022 Colorectal Cancer Screening 09/14/2032 Respiratory Syncytial Virus (RSV) Immunization (Adult) (1 - 1-dose 75+ series) 12/16/2047 Pneumococcal Immunization Combined Discontinued 07/03/2017 TdaP Immunization Completed 10/20/2019 Lung Cancer Screening Discontinued 11/11/2022 , 11/11/2022, 08/26/2021, Additional history exists Hepatitis C Virus (HCV) Screening Completed 11/14/2022, 10/12/2015 Human Papillomavirus (HPV) Immunization Aged Out No longer eligible based on patient's age to complete this topic Meningococcal Immunization (ACWY) Aged Out No longer eligible based on patient's age to complete this topic Rotavirus Immunization Aged Out No lo nger eligible based on patient's age to complete this topic Medical Devices Implanted Type Area Food Mixer Assembler Device Identifier Shelf Expiration Date Model / Serial / Lot Angioseal Vip 6fr - [id number] Implanted:Qty : 1 on 01/29/2017 by Nuvia Cazares MD at [facility] IMPLANT Right: Groin TERUMO / CARDIOVASCULAR SYSTEM 08/01/2017 [id number] / / [id number] Procedures Procedure Name Priority Date/Time Associated Diagnosis Comments CBC WITH AUTO DIFFERENTIAL STAT 09/10/2024 5:18 PM CDT CMP (COMPREHENSIVE METABOLIC PANEL) STAT 09/10/2024 5:18 PM CDT COMPLETE BLOOD COUNT (CBC) WITH DIFF STAT 09/10/2024 5:18 PM CDT URINE DRUG SCREEN STAT 09/10/2024 5:1 8 PM CDT URINALYSIS REFLEX IF INDICATED BY ABNORMAL RESULTS STAT 09/10/2024 5:18 PM CDT HEMOGLOBIN A1C W/ ESTIMATED GLUCOSE STAT 01/06/2022 7:[address] CHEST W CONTRAST STAT 09/28/2017 8 :08 PM CDT HEPATITIS PANEL ACUTE (AHP) Routine 10/12/2015 8:57 AM CDT History of cryptococcosis SOB (shortness of breath) AMB REFERRAL TO PODIATRY Routine 10/20/2014 from Last 3 Months or Most Recently Relevant to Health Maintenance Results * (ABNORMAL) URINALYSIS REFLEX IF INDICATED BY ABNORMAL RESULTS (09/10/2024 5:18 PM CDT) SPECIFIC GRAVITY 1.025 1.003 - 1.030 09/10/2024 6:25 PM CDT [facility] URINE PH 5.0 5.0 - 9.0 09/10/2024 6:25 PM CDT [facility] WBC ESTERASE Negative Negative 09/10/2024 6:25 PM CDT [facility] NITRITE Negative Negative 09/10/2024 6:25 PM CDT [facility] PROTEIN, RANDOM URINE 100 mg/dL(A) Negative 09/10/2024 6:25 PM CDT [facility] URINE GLUCOSE, QUAL 1000 mg/dL(A) Negative 09/10/2024 6:25 PM CDT [facility] URINE KETONES 50 mg/dL(A) Negative 09/10/2024 6:25 PM CDT [facility] UROBILINOGEN Normal Normal mg/dL 09/10/2024 6:25 PM CDT [facility] URINE BLOOD 10 /uL(A) Negative paris/ul 09/10/2024 6:25 PM CDT [facility] URINALYSIS COLOR Yellow 09/11/19 6:25 PM CDT [facility] URINALYSIS CLARITY Clear 09/10/2024 6:25 PM CDT [facility] WBC (Urine) 6-10(A) Negative, 0-5 /hpf 09/10/2024 6:25 PM CDT [facility] URINE RBC'S 0-2 Negative, 0-2 /hpf 09/10/2024 6:25 PM CDT [facility] EPITHELIAL CELLS Negative /lpf 09/11/19 6:25 PM CDT [facility] BACTERIA, URINE Negative Negative /hpf 09/10/2024 6:25 PM CDT [facility] URINE MUCOUS Few 09/10/2024 6:25 PM CDT [facility] CASTS 1-5/LPF Finely Granular Casts 1-5/LPF Hyaline Casts(A) Negative, 0-2/lpf, 3-5/lpf, 6-10/lpf, 11-20/lpf, >20/lpf /lpf 09/10/2024 6:25 PM CDT [facility] Urine URINE SPECIMEN OBTAINED BY CLEAN CATCH PROCEDURE / Unknown Non-Phlebotomy Collection / Unknown 09/10/2024 5:18 PM CDT 09/10/2024 5:58 PM CDT us Estevan Kirkpatrick Krishna PAC URINE ORDERABLES Fin al Result [facility] [address] [place] [address] * (ABNORMAL) CBC with Auto Differential (09/10/2024 5:18 PM CDT) WBC 12.19(H) 4.00 - 12.00 10(3)/mcL 09/10/2024 6:03 PM CDT [facility] RBC 5.18 4.40 - 5.80 10(6)/mcL 09/10/2024 6:03 PM CDT [facility] HEMOGLOBIN (HGB) 15.6 13.0 - 16.5 g/dL 09/10/2024 6:03 PM CDT [facility] HEMATOCRIT (HCT) 43.6 38.0 - 50.0 % 09/10/2024 6:03 PM CDT [facility] MCV 84.2 82.0 - 96.0 fL 09/10/2024 6:03 PM CDT [facility] MCH 30.1 26.0 - 32.0 pg 09/10/2024 6:03 PM CDT [facility] MCHC 35.8 31.0 - 36.0 g/dL 09/10/2024 6:03 PM CDT [facility] PLATELET COUNT 248 140 - 440 10(3)/mcL 09/10/2024 6:03 PM CDT [facility] RDW 12.4 11.8 - 15.5 % 09/10/2024 6:03 PM CDT [facility] MPV 11.5 8.0 - 12.6 fL 09/10/2024 6:03 PM CDT [facility] NEUTROPHILS 68.7(H) 40.0 - 68.0 % 09/10/2024 6:03 PM CDT [facility] LYMPHOCYTES 22.8 19.0 - 49.0 % 09/10/2024 6:03 PM CDT [facility] MONOCYTES 6.9 3.0 - 13.0 % 09/10/2024 6:03 PM CDT [facility] EOSINOPHILS 0.9 0.0 - 8.0 % 09/10/2024 6:03 PM CDT [facility] BASOPHILS 0.7 0.0 - 1.0 % 09/10/2024 6:03 PM CDT [facility] ABSOLUTE NEUTROPHILS 8.38(H) 1.40 - 5.30 10(3)/mcL 09/10/2024 6:03 PM CDT [facility] ABSOLUTE LYMPHOCYTES 2.78 0.90 - 3.30 10(3)/mcL 09/10/2024 6:03 PM CDT [facility] ABSOLUTE MONOCYTES 0.84 0.10 - 0.90 10(3)/mcL 09/10/2024 6:03 PM CDT [facility] ABSOLUTE EOSINOPHIL 0.11 0.00 - 0.50 10(3)/mcL 09/10/2024 6:03 PM CDT [facility] ABSOLUTE BASOPHILS 0.08 0.00 - 0.10 10(3)/mcL 09/10/2024 6:03 PM CDT [facility] NRBC PER 100 WBC 0 09/11/19 25 6:03 PM CDT [facility] Blood Venipuncture / Unknown 09/10/2024 5:18 PM CDT 09/10/2024 5:59 PM CDT us Estevan Keller PAC HEMATOLOGY ORDERABLE S Final Result [facility] [address] [place] [address] * (ABNORMAL) Comprehensive Metabolic Panel (Cmp) [id number] (09/10/2024 5:18 PM CDT) SODIUM 133(L) 136 - 145 mmol/L 09/10/2024 6:26 PM CDT [facility] POTASSIUM 3.4(L) 3.5 - 5.1 mmol/L 09/10/2024 6:26 PM CDT [facility] CHLORIDE 101 98 - 107 mmol/L 09/10/2024 6:26 PM T [facility] CO2, VENOUS 21(L) 22 - 30 mmol/L 09/10/2024 6:26 PM CDT [facility] ANION GAP 14.4 <18.0 mmol/L 09/10/2024 6:26 PM CDT [facility] GLUCOSE 278(H) 70 - 99 mg/dL 09/10/2024 6:26 PM CDT [facility] BUN 11 8 - 26 mg/dL 09/10/2024 6:26 PM T [facility] CREATININE, BLOOD 1.04 0.70 - 1.30 mg/dL 09/10/2024 6:26 PM CDT [facility] BUN/CREATININE RATIO 11(L) 12 - 20 ratio 09/10/2024 6:26 PM CDT [facility] TOTAL PROTEIN 7.9 6.0 - 8.0 g/dL 09/10/2024 6:26 PM CDT [facility] ALBUMIN 4.2 3.5 - 5.0 g/dL 09/10/2024 6:26 PM T [facility] A/G RATIO 1.1 1.0 - 2.2 09/10/2024 6:26 PM CDT [facility] CALCIUM 9.1 8.7 - 10.5 mg/dL 09/10/2024 6:26 PM CDT [facility] T BILI 0.9 0.2 - 1.2 mg/dL 09/10/2024 6:26 PM CDT [facility] SGOT (AST) 34 <43 U/L 09/10/2024 6:26 PM CDT [facility] SGPT (ALT) 34 <56 U/L 09/10/2024 6:26 PM CDT [facility] ALKALINE PHOSPHATASE 123 40 - 150 U/L 09/10/2024 6:26 PM CDT [facility] GFR, ESTIMATED >60 >=60 09/10/2024 6:26 PM CDT [facility] Comment: Creatinine Clearance is the preferred criteria for selecting drug dose adjustments in renally impaired patients. The GFR is provided as additional pertinent clinical information. GFR is reported in mL/min/1.73 sq m. Calculation based on the Chronic Kidney Disease Epidemiology Collaboration (CKD- EPI) equation refit without adjustment for race. GFR, EST. >60 >=60 025 6:26 PM CDT [facility] GFR, EST. NONAFRICAN >60 >=60 09/10/2024 6:26 PM CDT [facility] Blood Venipuncture / Unknown 09/10/2024 5:18 PM CDT 09/10/2024 5:59 PM CDT Estevan Keller PAC CHEMISTRY ORDERABLES Final Result [facility] [address] [place] [address] * (ABNORMAL) Urine Drug Screen (09/10/2024 5:18 PM CDT) UR AMPHETAMINE DETECTED(A) NON DETECTED 09/10/2024 6:26 PM CDT [facility] Comment: FOR MEDICAL USE ONLY. CUTOFF CONCENTRATION FOR DETECTED RESULT: AMPHETAMINE: 500 NG/ML UR BENZODIAZEPINES NON DETECTED NON DETECTED 09/10/2024 6:26 PM CDT [facility] Comment: FOR MEDICAL USE ONLY. CUTOFF CONCENTRATION FOR DETECTED RESULT: BENZODIAZAPINE: 200 NG/ML UR COCAINE METABOLITE DETECTED(A) NON DETECTED 09/10/2024 6:26 PM CDT [facility] Comment: FOR MEDICAL USE ONLY. CUTOFF CONCENTRATION FOR DETECTED RESULT: COCAINE: 150 NG/ML UR OPIATES NON DETECTED NON DETECTED 09/10/2024 6:26 PM CDT [facility] Comment: FOR MEDICAL USE ONLY. CUTOFF CONCENTRATION FOR DETECTED RESULT: OPIATES: 300 NG/ML UR PHENCYCLIDINE NON DETECTED NON DETECTED 09/10/2024 6:26 PM CDT [facility] Comment: FOR MEDICAL USE ONLY. CUTOFF CONCENTRATION FOR DETECTED RESULT: PCP: 25 NG/ML UR CANNABINOID DETECTED(A) NON DETECTED 09/10/2024 6:26 PM CDT [facility] Comment: FOR MEDICAL USE ONLY. CUTOFF CONCENTRATION FOR DETECTED RESULT: THC (MARIJUANA): 50 NG/ML UR BARBITURATE NON DETECTED NON DETECTED 09/10/2024 6:26 PM CDT [facility] Comment: FOR MEDICAL USE ONLY. CUTOFF CONCENTRATION FOR DETECTED RESULT: BARBITUATES: 200 NG/ML UR FENTANYL NON DETECTED NON DETECTED 09/10/2024 6:26 PM CDT [facility] Comment: FOR MEDICAL USE ONLY. CUTOFF CONCENTRATION FOR DETECTED RESULT: FENTANYL: 1.0 NG/ML Urine Non-Phlebotomy Collection / Unknown 09/10/2024 5:18 PM CDT 09/10/2024 5:58 PM CDT us Estevan Keller PAC URINE ORDERABLES Fin al Result [facility] [address] [place] [address] * (ABNORMAL) Hemoglobin A1C w/ Estimated Glucose (01/06/2022 7:31 PM CDT) HGB-A1C 6.5(H) 4.0 - 6.0 % 01/06/2022 11:01 PM CDT [facility] Est Average Glucose 139.9 mg/dL 01/06/2022 11:01 PM CDT [facility] Blood Venipuncture / Unknown 01/06/2022 7:31 PM CDT 01/06/2022 7:52 PM CDT Narrative [facility] - 01/06/2022 11:01 PM CDT HEMOGLOBIN A1C: DIABETIC PATIENTS: WELL-CONTROLLED: 6.2 - 7.0 INTERMEDIATE WELL-CONTROLLED: 7.0 - 9.0 POORLY-CONTROLLED: >9.0 us Estefani Funes APRN, CNP CHEMISTRY ORDERABLES Final Result [facility] [address] [place] [address] * CT CHEST W CONTRAST (09/28/2017 8:08 PM CDT) Anatomical Region Laterality Modality Chest N/A Computed Tomogra phy 09/28/2017 8:47 PM CDT Impressions 09/28/2017 8:50 PM CDT IMPRESSION: No acute finding. Narrative 09/28/2017 8:50 PM CDT EXAM DESCRIPTION: CT CHEST W CONTRAST COMPLETED DATE/TIME: 09/28/2017 8:09 pm REASON FOR STUDY: Midsternal chest pain and weakness, recently discharged from hospital for pneumonia TECHNIQUE: CT scan of the chest performed with intravenous contrast using helical scanning technique with dynamic intravenous contrast injection. Reconstructed coronal and sagittal MPR images reviewed. All images stored on PACS. Automated exposure control was used as a dose optimization technique for this examination. CONTRAST TYPE/DOSE: 100 mL of Isovue 370 contrast were intravenously injected at the right forearm. COMPARISON: 08/30/2017 FINDINGS: LUNGS: Again seen is peripheral nodular scarring in the right upper lobe. Minimal dependent atelectasis in the right lung base. There is no suspicious nodule, mass, or infiltrate. PLEURA: No effusion. No pneumothorax. MEDIASTINUM/ALIZA: No identified masses or abnormal nodes. HEART: Heart size is normal with no pericardial effusion. VASCULATURE: No thoracic aortic aneurysm. AXILLA: No adenopathy. CHEST WALL: No masses. No subcutaneous air. HARDWARE/LINES/TUBES: None. UPPER ABDOMEN: No significant abnormality. MUSCULOSKELETAL: No significant abnormality. OTHER: No other significant abnormality. THIS IS AN ELECTRONICALLY VERIFIED FINAL REPORT 09/28/2017 8:47 PM - Electronically signed by Reese Elizalde M.D. DS: DAMON Report ID: [id number] Reading Location: [id number] Procedure Note Reese Elizalde MD - 09/28/2017 EXAM DESCRIPTION: CT CHEST W CONTRAST COMPLETED DATE/TIME: 09/28/2017 8:09 pm REASON FOR STUDY: Midsternal chest pain and weakness, recently discharged from hospital for pneumonia TECHNIQUE: CT scan of the chest performed with intravenous contrast using helical scanning technique with dynamic intravenous contrast injection. Reconstructed coronal and sagittal MPR images reviewed. All images stored on PACS. Automated exposure control was used as a dose optimization technique for this examination. CONTRAST TYPE/DOSE: 100 mL of Isovue 370 contrast were intravenously injected at the right forearm. COMPARISON: 08/30/2017 FINDINGS: LUNGS: Again seen is peripheral nodular scarring in the right upper lobe. Minimal dependent atelectasis in the right lung base. There is no suspicious nodule, mass, or infiltrate. PLEURA: No effusion. No pneumothorax. MEDIASTINUM/ALIZA: No identified masses or abnormal nodes. HEART: Heart size is normal with no pericardial effusion. VASCULATURE: No thoracic aortic aneurysm. AXILLA: No adenopathy. CHEST WALL: No masses. No subcutaneous air. HARDWARE/LINES/TUBES: None. UPPER ABDOMEN: No significant abnormality. MUSCULOSKELETAL: No significant abnormality. OTHER: No other significant abnormality. THIS IS AN ELECTRONICALLY VERIFIED FINAL REPORT 09/28/2017 8:47 PM - Electronically signed by Reese Elizalde M.D. DS: DS Report ID: [id number] Reading Location: [id number] IMPRESSION: No acute finding. Estevan Adhikari ENTERPRISE ENGINEER, INTENSIVE CARE UNIT NURSE IMG CT ORDERABLES Final Result * HEPATITIS PANEL ACUTE (AHP) (10/12/2015 8:57 AM CDT) HEPATITIS A IGM ANTIBODY NON DETECTED NON DETECTED 10/12/2015 11:11 PM CDT [facility] Comment: IGM Antibodies to HAV not detected. Does not exclude early acute or recovered HAV infection. HEP B CORE AB (IGM) NON DETECTED NON DETECTED 10/12/2015 11:11 PM CDT [facility] Comment: IGM anti-HBC not detected. Does not exclude the possibility of exposure to or infection with HBV. HEPATITIS B SURFACE ANTIGEN NON DETECTED NON DETECTED 10/12/2015 11:11 PM CDT [facility] hepatitis C antibody 0.23 <1 S/CO 10/12/2015 11:11 PM CDT [facility] Comment: Signal/Cutoff ratio < 0.79 is Nondetected Signal/Cutoff ratio 0.80-0.99 is Grayzone Signal/Cutoff ratio > 0.99 is Detected Supplemental assays are recommended if signal/cutoff ratio is >/=1.00. Signal/cutoff ratio result >/= 5.00 is 97% predictive of positivity for recombinant immunoblot assay (RIBA) and will be reported to the [place] Department of Public Health as required. Blood specimen (specimen) Non-Phlebotomy Collection / Unknown 10/12/2015 8:57 AM CDT 10/12/2015 10:55 AM CDT us Ramos Davalos MD HEMATOLOGY ORDERABLES Fi nal Result [facility] [address] [place] [address] * AMB REFERRAL TO PODIATRY (10/20/2014) us Diana Cortes MD OUTPATIENT REFERRALS Sara l Result from Last 3 Months or Most Recently Relevant to Health Maintenance Insurance MEDICAID [facility] Advance Directives * Full Code (Latest Code Status on File) Date Activated Date Inactivated Comments 01/06/2022 10:28 PM 01/09/2022 4:02 PM CPR-Full Jyothi tment: FULL ARREST: Attempt Resuscitation/CPR wit intubation and mechanical ventilation. PRE-ARREST: Use entire range of life support measures to stabilize the patient. * Full Code Date Activated Date Inactivated Comments 09/29/2017 10:46 AM 10/01/2017 12:53 PM CPR-Full T reatment: FULL ARREST: Attempt Resuscitation/CPR wit intubation and mechanical ventilation. PRE-ARREST: Use entire range of life support measures to stabilize the patient. * Full Code Date Activated Date Inactivated Comments 06/26/2017 11:44 AM 08/16/2017 8:14 PM * Full Code Date Activated Date Inactivated Comments 06/14/2017 9:09 PM 06/16/2017 7:37 PM CPR-Full [place] atment: FULL ARREST: Attempt Resuscitation/CPR wit intubation and mechanical ventilation. PRE-ARREST: Use entire range of life support measures to stabilize the patient. * Full Code Date Activated Date Inactivated Comments 02/01/2017 8:35 AM 06/14/2017 2:53 PM Care Teams Community Health Advocate Relationship Specialty Start Date End Date El Reese MD [address] [facility] [address] [place] [address] PCP - General Family Medicine 09/13/20 Deb Krishnan MD Consulting Physician Urology 04/03/16
--- OUTSIDE RECORDS SUMMARY | 2024-12-07 11:59 | XMS_ITS | Encounter Summary ---
Author Organization [facility] Address [address] [facility] [place] [address] Care Team Providers Care Rubber Grinder Name Role Phone El Reese MD Primary Care Provider [phone] Reason for Visit * Reason Comments Refill Request Encounter Details Date Type Department Care Team (Late st Contact Info) Description 10/28/[address] [address] Flash Calvillo MD [address] [place] [address] [place] [phone] Refill Request Social History Tobacco Use Types Packs/Day Years Used Date Smoking Tobacco: Every Day Cigarettes Cigars Smokeless Tobacco: Never Alcohol Use Standard Drinks/Week Comments Yes 0 (1 standard drink = 0.6 oz pur e alcohol) socially Sex and Gender Information Value Date Recorded Sex Assigned at Not on file Legal Sex Male 1:34 PM CDT Gender Identity Not on file Sexual Orientation Not on file documented as of this encounter Plan of Treatment Not on file documented as of this encounter Visit Diagnoses Not on filedocumented in this encounter Additional Health Concerns Infection Onset Date Last Indicated Resolved Time COVID-19 Under Investigation 09/12/2024 09/12/2024 09/12/2024 1:20 PM CDT documented as of this encounter Care Teams Rubber Grinder Relationship Specialty Start Date End Date El Reese MD [address] [facility] [place] [id number] PCP - General Family Medicine 05/11/20 documented as of this encounter
--- OUTSIDE RECORDS SUMMARY | 2024-12-07 11:59 | XMS_ITS | Clinical Summary ---
Author Organization [facility] Address [address] [facility] [place] [address] Care Team Providers Care Network Announcer Name Role Phone El Reese MD Primary Care Provider [phone] Source Comments [facility] [facility] [facility],non-owned Affiliates and Associated Physician Practices is amultiple site organization consisting of ambulatory clinics and hospital sitesin [place], [place], [place] and [place]. This disclosure is being madepursuant to the Care Everywhere program and may not contain all information available regarding this patient. Last updated 18.[employer] Allergies No known active allergies Medications * Be aware that medications may not be up to date on this document. Alwaysverify current medications with the patient. tamsulosin (FLOMAX) 0.4 MG capsule Take 0.4 mg by mouth once daily 0 Active montelukast (SINGULAIR) 10 MG tablet Take 10 mg by mouth at bedtime Active omeprazole (PRILOSEC) 20 MG capsule Take 20 mg by mouth daily before breakfast Active calcium carbonate (TUMS) 500 MG chew tablet Take 1 tablet by mouth daily with breakfast 0 Active ALPRAZolam (XANAX) 1 MG tablet Take 1 tablet by mouth every 8 hours 3 Active benzonatate (TESSALON) 100 MG capsule Take 100 mg by mouth 0 Active fluticasone propionate (FLONASE) 50 MCG/ACT nasal spray 1-2 SPRAYS EACH NOSTRIL DAILY FOR NASAL CONGESTION AND ALLERGIES. 0 Active HYDROcodone-acet aminophen (NORCO) 5-325 MG tablet Take 1 tablet by mouth 0 Active BASAGLAR KWIKPEN (BASAGLAR) pen 0 Active insulin glargine (LANTUS) vial 3 Active atorvastatin (LIPITOR) 40 MG tablet Take 1 tablet by mouth every 24 hours 3 Active traZODone (DESYREL) 50 MG tablet 0 Active albuterol-ipratr opium (DUO-NEB) 0.5-2.5 (3) MG/3ML nebulizer solution 0 Active ADVOCATE INSULIN SYRINGE 31G X 5/16 0.5 ML syringe USE 1 SYRINGE FOR INSULIN INJECTION FOUR TIMES A DAY DIRECTED BY PHYSICIAN 9 Active B-D UF III MINI PEN NEEDLES 31G X 5 MM needle 0 Active tiotropium (SPIRIVA RESPIMAT) 2.5 MCG/ACT inhaler Inhale 2 puffs by mouth once daily 3 Inhaler 4 0 Active dilTIAZem ER 24hr (TIAZAC) 240 MG capsule Take 240 mg by mouth once daily Active SYMBICORT 160-4.5 MCG/ACT inhaler 0 Active gabapentin (NEURONTIN) 300 MG capsule 0 Active isosorbide mononitrate CR 24hr (IMDUR) 30 MG tablet 0 Active lisinopril (PRINIVIL; ZESTRIL) 10 MG tablet 0 Active metFORMIN (GLUCOPHAGE) 1000 MG tablet 0 Active NICOTINE STEP 2 14 MG/24HR patch 0 Active moxifloxacin (Vigamox) 0.5 % ophthalmic solution Instill 1 (one) drop into right eye 4 times daily 3 mL 3 Active ofloxacin (Ocuflox) 0.3 % ophthalmic solution Instill 1 (one) drop into right eye 4 times daily 5 mL 3 Active Active Problems Problem Noted Date Diagnosed Date Bicuspid aortic valve 03/02/2020 Assessment & Plan (03/02/2020 9:46 AM CDT): Not seen on previous ECHO. Follow up with Dr. Hill in 2 months. Coronary vasospasm 03/02/2020 Assessment & Plan (03/02/2020 9:48 AM CDT): CCB and Nitrates. Imdur increased in clinic for ongoing chest discomfort. Syncope and collapse 01/25/2020 Assessment & Plan (03/02/2020 9:41 AM CDT): Unclear Etiology. No reoccurrence since discharge, suspected secodary to hypovolemia in the setting of dehydration. Event monitor is at home, he was given new strips in clinic today to complete wearing his monitor. Hyperglycemia 01/25/2020 Chest pain 01/25/2020 Assessment & Plan (03/02/2020 9:47 AM CDT): Coronary Vascospam versus worsening ischemia versus pleural: ECHO from 01/2020 shows no new all motion abnormalities. Typical and atypical features. History of chest discomfort associated with cryptococcus PNA in the past. CT of chest pending per Pulm. [facility] In 2017 with coronary vasospasm otherwise normal coronaries. On CCB. Increased Imdur in clinic today. EKG NSR with no acute findings. Stress Test ordered to rule out ischemia. Pt was off his medications for some time, and has risk factors, continues to smoke, HLD, DMII. Continue ASA, statin, diltiazem, Imdur increased today in clinic. Encounters Date Type Department Care Team Description 09/12/2024 11:34 AM CDT - 09/12/2024 10:29 PM CDT Emergency [facility] EMERGENCY DEPARTMENT [address] [place] [id number] Ari Echavarria MD Byrne, Laurie E, MD Hyperglycemia (Primary Dx); Paresthesias; Generalized abdominal pain; Chest pain, unspecified type Discharge Disposition: Home or Self Care 09/12/2024 Travel from Last 3 Months Immunizations Immunization Administration Dates Next Due INFLUENZA VACCINE, TRIV. (AF LURIA, FLUZONE TRIVALENT; 6MO+) (IIV3) 03/06/2016 INFLUENZA VACCINE, QUADR. (F LUZONE; FLULAVAL; FLUARIX; AFLURIA QUADRIVALENT; 6MO+), 0.5 ML (IIV4) 03/01/2020,02/20/2018,07/03/2017 PNEUMOCOCCAL PPSV23 07/03/2017 TDAP (7yrs+) 10/20/2019 Family History Medical History Relation Name Comments CAD (Coronary Artery Disease) Father CAD (Coronary Artery Disease) Mother Relation Name Status Comments Father Mother Social History Tobacco Use Types Packs/Day Years Used Date Smoking Tobacco: Former Cigarettes Cigars Smokeless Tobacco: Never Tobacco Cessation:Counseling Given: Not Answered Alcohol Use Standard Drinks/Week Comments Yes 0 (1 standard drink = 0.6 oz pur e alcohol) socially Sex and Gender Information Value Date Recorded Sex Assigned at Not on file Legal Sex Male 1:34 PM CDT Gender Identity Not on file Sexual Orientation Not on file Last Filed Vital Signs Vital Sign Reading Time Taken Comments Blood Pressure 102/65 09/12/2024 9:00 PM CDT Pulse 77 09/12/2024 7:00 PM CDT Temperature 36.4 C (97.5 F) 09/12/2024 11:14 AM CDT Respiratory Rate 16 09/12/2024 7:00 PM CDT Oxygen Saturation 98% 09/12/2024 9:00 PM CDT Inhaled Oxygen Concentration - - Weight 88 kg (194 lb) 09/12/2024 11:14 AM CDT Height 175.3 cm (5' 9) 09/12/2024 11:14 AM CDT Body Mass Index 28.65 09/12/2024 11:14 AM CDT Plan of Treatment Health Maintenance Due Date Last Done Comments COLOGUARD (AGES 45-75) - COLON CA SCREENING 1972 CT COLONOGRAPHY - COLON CA SCREENING 1972 FIT - COLON CA SCREENING 1972 FLEX SIG - COLON CA SCREENING 1972 HEPATITIS B VACCINE (1 of 3 - 19+ 3-dose series) 12/16/1991 PNEUMOCOCCAL VACCINE 50+ (2 of 2 - PCV) 07/03/2018 07/03/2017 ZOSTER VACCINE (1 of 2) 2022 COVID-19 VACCINE (4 - season) 2024 01/29/2022, 05/30/2021, 05/09/2021 DEPRESSION SCREENING 06/04/2024 INFLUENZA VACCINE (#1) 2025 , 02/20/2018, 07/03/2017, Additional history exists DTAP/TDAP/TD VACCINES (2 - Td or Tdap) 10/19/2029 10/20/2019 COLON MONITORING 09/14/2032 09/14/2022 COLONOSCOPY - COLON CA SCREENING 09/14/2032 09/14/2022 Colorectal Cancer Screening 09/14/2032 HEPATITIS C SCREENING Completed 11/14/2022, 016 HIV SCREENING Completed 09/12/2024 HIB VACCINE Aged Out No longer eligi ble based on patient's age to complete this topic HPV VACCINE Aged Out No longer eligi ble based on patient's age to complete this topic MENINGOCOCCAL (Group B) VACCINE SHARED DECISION-MAKING Aged Out No longer eligible based on patient's age to complete this topic MENINGOCOCCAL GROUPS A/C/Y/W VACCINE Aged Out No longer eligible based on patient's age to complete this topic Procedures Procedure Name Priority Date/Time Associated Diagnosis Comments CARDIAC EKG ORDER 09/15/2024 2:2 3 PM CDT GLUCOSE - POINT OF CARE Routine 09/13/19 25 6:32 PM CDT GLUCOSE - POINT OF CARE Routine 09/13/19 25 4:[address] ANGIO AORTA FOR DISSECTION STAT 09/12/2024 2:14 PM CDT Paresthesias Chest pain, unspecified type BLOOD GASES ARNULFO + COOX PANEL STAT 09/12/2024 1:47 PM CDT HYDROXYBUTYRATE BETA STAT 09/12/2024 1:47 PM CDT TROPONIN-I HIGH SENSITIVE REFLEX 1HOUR Timed 09/12/2024 1:47 PM CDT EKG 12-LEAD STAT 09/12/2024 1:13 PM CDT Paresthesias HIV-1 HIV-2 ANTIBODY + HIV P24 AG PANEL STAT 09/12/2024 12:30 PM CDT SYPHILIS ANTIBODY CASCADING REFLEX STAT 09/12/2024 12:30 PM CDT XR CHEST 1VW PORTABLE STAT 09/12/2024 12:30 PM CDT Paresthesias VITAMIN B12 LEYLA 09/12/2024 12:24 PM CDT SARS-COV-2 (COVID-19)+INFLU A+B PCR RAPID STAT 09/12/2024 12:24 PM CDT TROPONIN-I HIGH SENSITIVE BASELINE + 1HR STAT 09/12/2024 12:23 PM CDT MAGNESIUM BLOOD STAT 09/12/2024 12:23 PM CDT BASIC METABOLIC PANEL (CALCIUM TOTAL) STAT 09/12/2024 12:23 PM CDT CBC W AUTO DIFFERENTIAL STAT 09/13/19 12:23 PM CDT from Last 3 Months Results * CARDIAC EKG ORDER (09/15/2024 2:23 PM CDT) Narrative 09/15/2024 2:23 PM CDT Ordered by an unspecified provider. us Scanned Document CARDIAC SERVICES ORDERABLES Fin al Result * (ABNORMAL) GLUCOSE - POINT OF CARE (09/12/2024 6:32 PM CDT) Only the most recent of2 resultswithin the time period is included. Glucose WB/POC 223(H) 70 - 99 mg/dL 09/12/2024 8:41 PM CDT [facility] Specimen Type Cap Fingerstick 2024 8:41 PM CDT [facility] Blood BLOOD SPECIMEN / Unknown 09/12/2024 6:32 PM CDT 09/12/2024 8:41 PM CDT us Britney Wilde MD LAB - POINT OF CARE ORDERABLES Final Result [facility] [address] [place] [address], [facility] [phone] * CT Angio Aorta for Dissection (09/12/2024 2:14 PM CDT) Anatomical Region Laterality Modality Abdomen Computed Tomogra phy 09/12/2024 2:32 PM CDT Impressions 09/13/2024 12:17 AM CDT Impression: 1.No aortic dissection, intramural hematoma, penetrating atherosclerotic ulcer, or aneurysm. 2.Areas of scarring in the right upper and middle lobes with multiple adjacent nodules, the largest measuring 8 mm (series 12, image 44). Most likely sequela of infectious process/scarring, however diagnostic certainty is limited given history of gastric cancer noted in the chart and absence of priors for comparison. Recommend short term follow-up (3 months) with Chest CT. 3.No acute process identified in the abdomen or pelvis. > Dictated by Jon Chao MD, (vice president of development). IChandrakant MD have personally reviewed and interpreted this examination/study. > Interpreting Provider: Chandrakant Delgado MD on 09/13/2024 12:17 AM Narrative 09/13/2024 12:17 AM CDT PROCEDURE: CT ANGIO AORTA FOR DISSECTION, DATE/TIME OF EXAM: 09/12/2024 2:15 PM, LOCATION [facility] INDICATION: R20.2: Paresthesias R07.9: Chest pain, unspecified type ADDITIONAL CLINICAL INFORMATION: Ordering Provider Reason For Exam: dissection Technologist Note: Additional: 53-year-old male with history of hypertension and type 2 diabetes presents with abdominal pain/fullness and numbness and tingling of the fingers and toes.history of gastric cancer. COMPARISON: None. TECHNIQUE: CT of the chest, abdomen, and pelvis was performed prior to and following the uneventful administration of Isovue 370 intravenous contrast according to an angiogram dissection protocol. Three dimensional postprocessing was performed by the technologist and sent to the workstation for review. Findings: Thoracic aorta: No aortic dissection, intramural hematoma, penetrating atherosclerotic ulcer, or aneurysm. Thoracic aortic branches: Subclavian arteries: Patent without significant focal stenosis. Brachiocephalic artery: Patent without significant focal stenosis. Pulmonary artery: Normal. Abdominal aorta: No aortic dissection, intramural hematoma, penetrating atherosclerotic ulcer, or aneurysm. Abdominal aortic branches: Celiac axis: Patent without significant focal stenosis. Superior mesenteric artery: Patent without significant focal stenosis. Inferior mesenteric artery: Patent without significant focal stenosis. Right renal artery: Patent without significant focal stenosis. Left renal artery: Patent without significant focal stenosis. Right common iliac artery: Atherosclerotic but patent without significant focal stenosis. Right internal iliac artery: Atherosclerotic but patent without significant focal stenosis. Right external iliac artery: Patent without significant focal stenosis. Left common iliac artery: Atherosclerotic but patent without significant focal stenosis. Left internal iliac artery: Atherosclerotic but patent without significant focal stenosis. Left external iliac artery: Patent without significant focal stenosis. Chest: Lower Neck and Axillae: Subcentimeter area of hypoattenuation in the left thyroid lobe, likely a thyroid nodule. Prominent axillary lymph nodes bilaterally without definitive enlargement. Lungs: Mild bilateral dependent atelectasis is present. Pleural thickening with adjacent nodular opacities in the right upper lobe. The largest nodule measures 7 mm (series 12, image 32). There is an area of linear atelectasis versus scarring in the right middle lobe abutting the minor fissure which contains a 8 mm nodule (series 12, image 44). No pleural fluid or pneumothorax is present. Heart and Pericardium: The cardiac chambers are normal in size. No pericardial fluid or thickening is present. Mediastinum and Aiyana: No mediastinal mass is present. Mildly prominent subcentimeter mediastinal lymph nodes are seen; however, there are no enlarged lymph nodes are present. Abdomen/pelvis: Liver: Normal. Gallbladder and Bile Ducts: The gallbladder is absent. Spleen: Normal. Pancreas: Normal. Adrenals: There is an indeterminant 0.8 left adrenal nodule. Kidneys: Tiny nonobstructing stones bilaterally. No hydronephrosis or hydroureter. Gastrointestinal: The stomach and visualized loops of small bowel are unremarkable. Colonic diverticulosis without evidence of diverticulitis is seen. The appendix is not seen; however, no inflammatory changes are seen in the right lower quadrant. Mesentery/Peritoneum/Retroperitoneum: No free intraperitoneal air. No free fluid in the abdomen or pelvis. Bladder: Normal. Reproductive Organs: The prostate is partially calcified. Bones: Bone windows demonstrate no suspicious lytic or blastic lesions. The visible osseous structures are intact. Minimal retrolisthesis of L3 on L4 and L4 on L5. Soft tissues: Small fat-containing inguinal hernia on the left. Small fat-containing umbilical hernia. Procedure Note Lilia Delgado MD - 09/13/2024 PROCEDURE: CT ANGIO AORTA FOR DISSECTION, DATE/TIME OF EXAM: 09/12/2024 2:15 PM, LOCATION [facility] INDICATION: R20.2: Paresthesias R07.9: Chest pain, unspecified type ADDITIONAL CLINICAL INFORMATION: Ordering Provider Reason For Exam: dissection Technologist Note: Additional: 53-year-old male with history of hypertension and type 2 diabetes presents with abdominal pain/fullness and numbness and tinglingof the fingers and toes.history of gastric cancer. COMPARISON: None. TECHNIQUE: CT of the chest, abdomen, and pelvis was performed prior toand following the uneventful administration of Isovue 370 intravenouscontrast according to an angiogram dissection protocol. Three dimensional postprocessing was performed by the technologist and sent to the workstation for review. Findings: Thoracic aorta: No aortic dissection, intramural hematoma, penetrating atherosclerotic ulcer, or aneurysm. Thoracic aortic branches: Subclavian arteries: Patent without significant focal stenosis. Brachiocephalic artery: Patent without significant focal stenosis. Pulmonary artery: Normal. Abdominal aorta: No aortic dissection, intramural hematoma, penetrating atherosclerotic ulcer, or aneurysm. Abdominal aortic branches: Celiac axis: Patent without significant focal stenosis. Superior mesenteric artery: Patent without significant focal stenosis. Inferior mesenteric artery: Patent without significant focal stenosis. Right renal artery: Patent without significant focal stenosis. Left renal artery: Patent without significant focal stenosis. Right common iliac artery: Atherosclerotic but patent withoutsignificant focal stenosis. Right internal iliac artery: Atherosclerotic but patent withoutsignificant focal stenosis. Right external iliac artery: Patent without significant focal stenosis. Left common iliac artery: Atherosclerotic but patent without significant focal stenosis. Left internal iliac artery: Atherosclerotic but patent withoutsignificant focal stenosis. Left external iliac artery: Patent without significant focal stenosis. Chest: Lower Neck and Axillae: Subcentimeter area of hypoattenuation in the left thyroid lobe, likely a thyroid nodule. Prominent axillary lymph nodes bilaterally without definitive enlargement. Lungs: Mild bilateral dependent atelectasis is present. Pleural thickening with adjacent nodular opacities in the right upper lobe. The largest nodule measures 7 mm (series 12, image 32). There is an area of linearatelectasis versus scarring in the right middle lobe abutting the minor fissurewhich contains a 8 mm nodule (series 12, image 44). No pleural fluid or pneumothorax is present. Heart and Pericardium: The cardiac chambers are normal in size. No pericardial fluid orthickening is present. Mediastinum and Aiyana: No mediastinal mass is present. Mildly prominent subcentimetermediastinal lymph nodes are seen; however, there are no enlarged lymph nodes are present. Abdomen/pelvis: Liver: Normal. Gallbladder and Bile Ducts: The gallbladder is absent. Spleen: Normal. Pancreas: Normal. Adrenals: There is an indeterminant 0.8 left adrenal nodule. Kidneys: Tiny nonobstructing stones bilaterally. No hydronephrosis orhydroureter. Gastrointestinal: The stomach and visualized loops of small bowel are unremarkable.Colonic diverticulosis without evidence of diverticulitis is seen. The appendixis not seen; however, no inflammatory changes are seen in the right lower quadrant. Mesentery/Peritoneum/Retroperitoneum: No free intraperitoneal air. No free fluid in the abdomen or pelvis. Bladder: Normal. Reproductive Organs: The prostate is partially calcified. Bones: Bone windows demonstrate no suspicious lytic or blastic lesions. The visible osseous structures are intact. Minimal retrolisthesis of L3 onL4 and L4 on L5. Soft tissues: Small fat-containing inguinal hernia on the left. Small fat-containing umbilical hernia. Impression: 1.No aortic dissection, intramural hematoma, penetrating atherosclerotic ulcer, or aneurysm. 2.Areas of scarring in the right upper and middle lobes with multiple adjacent nodules, the largest measuring 8 mm (series 12, image 44). Most likely sequela of infectious process/scarring, however diagnosticcertainty is limited given history of gastric cancer noted in the chart andabsence of priors for comparison. Recommend short term follow-up (3 months) with Chest CT. 3.No acute process identified in the abdomen or pelvis. > Dictated by Jon Chao MD, (vice president of development). IChandrakant MD have personally reviewed and interpreted this examination/study. > Interpreting Provider: Chandrakant Delgado MD on 09/13/2024 12:17 AM us Ari Echavarria MD CT ORDERABLES Final Result * TROPONIN-I HIGH SENSITIVE REFLEX 1HOUR (09/12/2024 1:47 PM CDT) [facility] Troponin I High Sensitive <3 <=35 ng/L 09/12/2024 2:27 PM T [facility] Delta Troponin I HS 09/12/2024 2:27 PM T [facility] Comment:Result exceeds linea rity range. A delta value is unable to be calculated. Blood BLOOD SPECIMEN / Unknown Venipuncture / Unknown 09/12/2024 1:47 PM CDT 09/12/2024 1:54 PM CDT us Ari Echavarria MD LAB - CHEMISTRY ORDERABLES Fi nal Result [facility] [address] [place] [address], [facility] [phone] * (ABNORMAL) BLOOD GASES ARNULFO + COOX PANEL (09/12/2024 1:47 PM CDT) [facility] pH Venous 7.42 7.32 - 7.42 pH 09/12/2024 1:56 PM [facility] pO2 Venous 64(H) 35 - 40 mmHg 09/12/2024 1:56 PM [facility] pCO2 Venous 40 40 - 50 mmHg 09/12/2024 1:56 PM [facility] HCO3 Venous 25.9 20 - 30 mmol/L 09/12/2024 1:56 PM [facility] Base Excess Venous 1.3 -2.0 - 2.0 mmol/L 09/12/2024 1:56 PM [facility] Oxyhemoglobin Venous 90.4 % 09/02 1:56 PM [facility] Deoxyhemoglobin (HHB) Venous % 7.1 % 09/12/2024 1:56 PM [facility] Methemoglobin 0.8 0.0 - 2.0 % 09/12/2024 1:56 PM [facility] Carboxyhemoglobin 1.7 0.0 - 2.0 % 2024 1:56 PM CDT [facility] O2 Content Venous 18.5 Interpret within clinical context ml/dL 09/12/2024 1:56 PM CDT [facility] Hemoglobin by COOX 14.6 12.0 - 17.6 g/dL 09/12/2024 1:56 PM CDT [facility] O2 Saturation Venous 93 >=70 % 09/02 1:56 PM CDT [facility] FI O2 Mixed Venous 21.0 % 2024 1:56 PM CDT [facility] Blood BLOOD SPECIMEN / Unknown Venipuncture / Unknown 09/12/2024 1:47 PM CDT 09/12/2024 1:53 PM CDT Narrative [facility] - 09/12/2024 1:56 PM CDT Carboxyhemoglobin Normal Concentration: Non-smokers: 0-2%; Smokers: 0-9%; Toxic: >20% Ari Echavarria MD LAB - BLOOD GASES ORDERABLES Final Result Performing Organization Address City/[facility]/ZIP Co de Phone Number [address] [address], [employer] [phone] * HYDROXYBUTYRATE BETA (09/12/2024 1:47 PM CDT) [facility] Beta-Hydroxybu tyrate <0.50 <0.50 mmol/L 09/12/2024 2:19 PM CDT [facility] Blood BLOOD SPECIMEN / Unknown Venipuncture / Unknown 09/12/2024 1:47 PM CDT 09/12/2024 1:54 PM CDT Ari Echavarria MD LAB - CHEMISTRY ORDERABLES Fi nal Result Performing Organization Address [facility]/State/ZIP Co de Phone Number [address] [address], [employer] [phone] * EKG 12-LEAD (09/12/2024 1:13 PM CDT) Ventricular Rate 79 BPM [facility] MUSE Atrial Rate 79 BPM [facility] MUSE P-R Interval 158 ms [facility] MUSE QRS Duration ms 90 ms [facility] MUSE Q-T Interval ms 380 ms [facility] MUSE QTC Calculation (Bezet) 435 ms [facility] MUSE Calculated P [place] 3 degrees [facility] MUSE Calculated R [place] 8 degrees [facility] MUSE Calculated T [place] 12 degrees [facility] MUSE Interpretation EKG NORMAL SINUS RHYTHM NORMAL ECG WHEN COMPARED WITH ECG OF 10-JAN-2022 14:21, CRITERIA FOR ANTERIOR INFARCT ARE NO LONGER PRESENT NONSPECIFIC T WAVE ABNORMALITY NO LONGER EVIDENT IN LATERAL LEADS Confirmed by MD CITLALY, MARIANNE ([id number]) on 09/16/2024 9:38:38 AM [facility] MUSE 09/12/2024 1:13 PM CDT 09/16/2024 9:38 AM CDT Aman Carlos PA-C ECG ORDERABLES Edited Resul t - Final Performing Organization Address City/[facility]/ZIP Co de Phone Number [facility] MUSE * SYPHILIS ANTIBODY CASCADING REFLEX (09/12/2024 12:30 PM CDT) Treponema pallidum Antibody Non-react nely Non-react nely 09/12/2024 1:45 PM CDT [facility] Comment: No Laboratory evidence of syphilis infection. Note: Circulating antibodies may be low or undetectable in early infection. If recent exposure is suspected, re-draw sample in 2-4 weeks and repeat testing. Blood BLOOD SPECIMEN / Unknown Venipuncture / Unknown 09/12/2024 12:30 PM CDT 09/12/2024 12:32 PM CDT Ari Echavarria MD LAB - SEROLOGY ORDERABLES Fin al Result [facility] [address] [place] [address], [place] [phone] * HIV-1 HIV-2 ANTIBODY + HIV P24 AG PANEL (09/12/2024 12:30 PM CDT) HIV Antigen/Antibod y 1 & 2 Non-reacti ve Non-react nely 09/12/2024 1:45 PM CDT [facility] Comment:No Laboratory eviden ce of HIV infection. Blood BLOOD SPECIMEN / Unknown Venipuncture / Unknown 09/12/2024 12:30 PM CDT 09/12/2024 12:32 PM CDT Ari Echavarria MD LAB - CHEMISTRY ORDERABLES Fi nal Result Performing Organization Address [facility]/State/ZIP Co de Phone Number [id number] [place] [address], [facility] [phone] * XR CHEST 1VW PORTABLE (09/12/2024 12:30 PM CDT) Anatomical Region Laterality Modality Chest Digital Radiogra phy 09/12/2024 2:26 PM CDT Narrative 09/12/2024 2:28 PM CDT PROCEDURE: XR CHEST 1VW PORTABLE, DATE/TIME OF EXAM: 09/12/2024 12:11 PM, LOCATION [facility] INDICATION: R20.2: Paresthesias ADDITIONAL CLINICAL INFORMATION: Ordering Provider Reason For Exam: pneumonia Technologist Note: Additional: COMPARISON: 04/16/2020 chest x-ray TECHNIQUE: Frontal radiograph of the chest. FINDINGS/IMPRESSION: There is no focal consolidation, pleural effusion, or pneumothorax. The cardiomediastinal silhouette is normal. No acute osseous abnormality. Report dictated by Jaylen Ruiz MD, (vice president of development). I, Maikel Pulliam MD have personally reviewed and interpreted this examination/study. > Interpreting Provider: Maikel Pulliam MD on 09/12/2024 2:28 PM Procedure Note Maikel Pulliam MD - 09/12/2024 PROCEDURE: XR CHEST 1VW PORTABLE, DATE/TIME OF EXAM: 09/12/2024 12:11PM, LOCATION [facility] INDICATION: R20.2: Paresthesias ADDITIONAL CLINICAL INFORMATION: Ordering Provider Reason For Exam: pneumonia Technologist Note: Additional: COMPARISON: 04/16/2020 chest x-ray TECHNIQUE: Frontal radiograph of the chest. FINDINGS/IMPRESSION: There is no focal consolidation, pleural effusion, or pneumothorax. The cardiomediastinal silhouette is normal. No acute osseous abnormality. Report dictated by Jaylen Ruiz MD, (vice president of development). I, Maikel Pulliam MD have personally reviewed and interpreted this examination/study. > Interpreting Provider: Maikel Pulliam MD on 09/12/2024 2:28 PM Ari Echavarria MD DIAGNOSTIC IMAGING ORDERABLES Final Result * SARS-COV-2 (COVID-19)+INFLU A+B PCR RAPID (09/12/2024 12:24 PM CDT) COVID-19 PCR Not detected Not detected 09/13/19 1:20 PM CDT [facility] Influenza A Rapid FABI Not Detected Not Detected 09/12/2024 1:20 PM CDT [facility] Influenza B FABI Rapid Not Detected Not Detected 09/12/2024 1:20 PM CDT [facility] Microbiology SPECIMEN FROM NASOPHARYNGEAL STRUCTURE / Unknown Collection / Unknown 09/12/2024 12:24 PM CDT 09/12/2024 12:32 PM CDT Narrative [facility] - 09/12/2024 1:20 PM CDT Influenza assay performed by Nucleic Acid Amplification. Results do not exclude the possibility of a mixed viral infection. NOTE: Detecting and identifying specific viral nucleic acids from individuals exhibiting signs and symptoms of respiratory infection aids in the diagnosis of respiratory infection, if used in conjunction with other clinical and laboratory findings. The results of this test should not be used as the sole basis for diagnosis, treatment, or patient management decisions. This nucleic acid amplification assay performance was validated by [facility]. This test has been authorized by the Food and Drug administration (FDA)under an Emergency Use Authorization (EUA). This test has been validated in accordance with the FDA's guidance document Policy for Diagnostic Testing in Laboratories Certified to perform High Complexity Testing under CLIA prior to Emergency Use Authorization for Coronavirus Disease-2019 during the Public Health Emergency issued on August 02, 2019. FDA independent review of this validation is pending. This test is only authorized for the duration of time the declaration that circumstances exist justifying the authorization of emergency use of in vitro diagnostic tests for detection of SARS-CoV-2 virus and/or diagnosis of COVID-19 infection under section 564(b)(1) of the Act, 21 U.S.C 360bbb-3 (b)(1), unless the authorization is terminated or revoked sooner. Fact Sheets for this EUA assay are available upon request. Ari Echavarria MD LAB - MICROBIOLOGY ORDERABLES Final Result [address] [address], [place] [phone] * VITAMIN B12 (09/12/2024 12:24 PM CDT) [facility] Vitamin B12 745 213 - 816 pg/mL 09/12/2024 1:36 PM CDT [facility] Blood BLOOD SPECIMEN / Unknown Venipuncture / Unknown 09/12/2024 12:24 PM CDT 09/12/2024 12:41 PM CDT Ari Echavarria MD LAB - CHEMISTRY ORDERABLES Fi nal Result Performing Organization Address [facility]/ZIP Co de Phone Number [address] [address], [facility] [phone] * TROPONIN-I HIGH SENSITIVE BASELINE + 1HR (09/12/2024 12:23 PM CDT) [facility] Troponin I High Sensitive <3 <=35 ng/L 09/12/2024 1:20 PM CDT [facility] Blood BLOOD SPECIMEN / Unknown Venipuncture / Unknown 09/12/2024 12:23 PM CDT 09/12/2024 12:41 PM CDT Ari Echavarria MD LAB - CHEMISTRY ORDERABLES Fi nal Result Performing Organization Address [facility]/ZIP Co de Phone Number [address] [address], [facility] [phone] * (ABNORMAL) CBC W AUTO DIFFERENTIAL (09/12/2024 12:23 PM CDT) [facility] WBC 9.3 4.0 - 10.7 x10E9/L 09/12/2024 12:44 PM [facility] RBC Count 4.83 4.30 - 5.80 x10E12/L 09/12/2024 12:44 PM [facility] Hemoglobin 14.3 13.3 - 17.5 g/dL 09/12/2024 12:44 PM [facility] Hematocrit 40.3 38.7 - 51.1 % 09/12/2024 12:44 PM [facility] MCV 83.4 80.0 - 98.0 fL 09/12/2024 12:44 PM [facility] MCH 29.6 26.7 - 33.6 pg 09/12/2024 12:44 PM [facility] MCHC 35.5 31.7 - 36.3 g/dL 09/12/2024 12:44 PM [facility] RDW-CV 12.3 11.3 - 14.8 % 09/12/2024 12:44 PM [facility] Platelet Count 245 150 - 420 x10E9/L 09/12/2024 12:44 PM [facility] MPV 11.6(H) 7.8 - 11.4 fL 09/12/2024 12:44 PM [facility] Neutrophil % 76.7(H) 41.0 - 74.0 % 09/12/2024 12:44 PM [facility] Lymphocyte % 17.6 17.0 - 47.0 % 09/12/2024 12:44 PM [facility] Monocyte % 3.9 3.0 - 11.0 % 09/12/2024 12:44 PM [facility] Eosinophil % 1.1 0.0 - 7.0 % 09/12/2024 12:44 PM [facility] Basophil % 0.3 0.0 - 1.6 % 09/12/2024 12:44 PM [facility] Immature Granulocytes % 0.4 0.0 - 1.0 % 09/12/2024 12:44 PM [facility] Neutrophil Absolute 7.14 1.60 - 7.50 x10E9/L 09/12/2024 12:44 PM [facility] Lymphocyte Absolute 1.64 1.00 - 4.40 x10E9/L 09/12/2024 12:44 PM T [facility] Monocyte Absolute 0.36 0.15 - 1.00 x10E9/L 09/12/2024 12:44 PM T [facility] Eosinophil Absolute 0.10 0.00 - 0.60 x10E9/L 09/12/2024 12:44 PM [facility] Basophil Absolute 0.03 0.00 - 0.13 x10E9/L 09/12/2024 12:44 PM [facility] Blood BLOOD SPECIMEN / Unknown Venipuncture / Unknown 09/12/2024 12:23 PM CDT 09/12/2024 12:41 PM CDT us Aman Carlos PA-C LAB - HEMATOLOGY ORDERABLES Final Result [facility] [address] [place] [address], [facility] [phone] * (ABNORMAL) BASIC METABOLIC PANEL (CALCIUM TOTAL) (09/12/2024 12:23 PM CDT) BUN 12 7 - 26 mg/dL 09/12/2024 1:19 PM [facility] Creatinine 0.74 0.71 - 1.16 mg/dL 09/12/2024 1:19 PM [facility] Sodium 132(L) 136 - 145 mmol/L 09/12/2024 1:19 PM [facility] Potassium 4.4 3.5 - 4.5 mmol/L 09/12/2024 1:19 PM [facility] Chloride 101 98 - 107 mmol/L 09/12/2024 1:19 PM [facility] CO2 17(L) 22 - 29 mmol/L 09/12/2024 1:19 PM [facility] Glucose 559(H) 70 - 99 mg/dL 09/12/2024 1:19 PM [facility] Calcium 9.1 8.4 - 10.2 mg/dL 09/12/2024 1:19 PM [facility] Anion Gap 14 6 - 16 09/12/2024 1:19 PM CDT [facility] BUN/Creatinine Ratio 16 7 - 23 09/12/2024 1:19 PM CDT [facility] Osmolality Calculated 299(H) 275 - 295 mOsm/kg 09/12/2024 1:19 PM CDT [facility] eGFR by CKD-EPI >90 >=90 mL/min/1.7 3 m2 09/12/2024 1:19 PM CDT [facility] Blood BLOOD SPECIMEN / Unknown Venipuncture / Unknown 09/12/2024 12:23 PM CDT 09/12/2024 12:41 PM CDT Aman Carlos PA-C LAB - CHEMISTRY ORDERABLES F inal Result [facility] [address] [place] [address], [place] [phone] * MAGNESIUM BLOOD (09/12/2024 12:23 PM CDT) Magnesium 1.9 1.6 - 2.6 mg/dL 09/12/2024 1:19 PM CDT [facility] Blood BLOOD SPECIMEN / Unknown Venipuncture / Unknown 09/12/2024 12:23 PM CDT 09/12/2024 12:41 PM CDT Aman Carlos PA-C LAB - CHEMISTRY ORDERABLES F inal Result [facility] [address] [place] [phone], [place] [phone] from Last 3 Months Insurance [facility] MEDICAID - [place] [facility] Advance Directives * Full Code (Latest Code Status on File) Date Activated Date Inactivated Comments 01/25/2020 7:47 PM 01/27/2020 1:23 PM Care Teams Network Announcer Relationship Specialty Start Date End Date El Reese MD [address] [phone] PCP - General Family Medicine 05/11/20
--- OUTSIDE RECORDS SUMMARY | 2024-12-07 11:59 | XMS_ITS | Encounter Summary ---
Author Organization [facility] Address [address] [facility] [place] [address] Care Team Providers Care Senior Category Manager Name Role Phone El Reese MD Primary Care Provider [phone] Reason for Visit * Reason Comments Refill Request Encounter Details Date Type Department Care Team (Late st Contact Info) Description 06/22/[address] [address] Flash Calvillo MD [address] [place] [address] [place] [address] Refill Request Social History Tobacco Use Types [...] documented as of this encounter Care Teams Senior Category Manager Relationship Specialty Start Date End Date El Reese MD [address] [facility] [place] [phone] PCP - General Family Medicine 05/11/20 documented as of this encounter
--- OUTSIDE RECORDS SUMMARY | 2024-12-07 11:59 | XMS_ITS | Encounter Summary ---
Author Organization [facility] Address [address] [facility] [place] [address] Care Team Providers Care Spinner Concrete Pipe Name Role Phone El Reese MD Primary Care Provider [phone] Reason for Visit * Reason Comments Refill Request Encounter Details Date Type Department Care Team (Late st Contact Info) Description 05/14/[address] [address] Flash Calvillo MD [address] [place] [address] [place] [phone] Refill Request Social History Tobacco Use Types [...] on file Sexual Orientation Not on file COVID-19 Exposure Response Date Recorded In the last month, have you been in contact with someone who was confirmed or suspected to have Coronavirus / COVID-19? No / Unsure 04/16/2020 9:38 AM [employer] documented as of this encounter Plan of Treatment Not on file documented as of this encounter Visit Diagnoses Not on filedocumented in this encounter Additional Health Concerns Infection Onset Date Last Indicated Resolved Time COVID-19 Under Investigation 09/12/2024 09/12/2024 09/12/2024 1:20 PM CDT documented as of this encounter Care Teams Spinner [employer] Pipe Relationship Specialty Start Date End Date El Reese MD [address] [place] [phone] PCP - General Family Medicine 05/11/20 documented as of this encounter
--- OUTSIDE RECORDS SUMMARY | 2024-12-07 11:59 | XMS_ITS | Data Portability ---
Author Organization [facility] GIANNAKimi Caraballo Address [address] [place] [address] Care Team Providers Care Engineer Third Assistant Name Role Phone RIK EL Primary Care Provider Assessment Encounter Date Assessment Date Assessment LastModified by Organization Details LastModified Time 02/02/2023 02/02/2023 52 yo male with hx of HTN, COPD (followed by pulm), DMII (followed by endocrinology), and GERD who presents for ongoing chest pain s/p hospital discharge. [email or web address] Not available 02/02/2023 13:22:51 07/04/2023 07/04/2023 Pt spent the majority of visit [place] [email or web address] Not available 07/05/2023 07:05:20 10/01/2023 10/01/2023 Pt smokes and drinks. [email or web address] Not available 10/03/2023 08:33:53 04/09/2024 04/09/2024 Pt states that he forgets to take his DM medications. He was advised to ask his daughter to help him with the administration of his medications. Pt continues to c/o diffuse pains and remains a poor historian. [email or web address] Not available 04/12/2024 07:34:55 06/05/2024 06/05/2024 Workup and treatment will proceed as described below. [email or web address] Not available 06/09/2024 16:43:56 Plan of Treatment Reminders Order Date Submit Date Provider Last Modified By Organization Details Last Modified Time Details Appointments None recorded. Lab TSH, ultra-sens itive, serum 2024 025 [facility], [address], [facility], [place], [address], 5 08:24:41 CBC w/ auto diff 2024 025 [facility], [address] [facility] [facility], [facility], [place], [address], 5 06:19:20 iron + total iron-alec ng capacity (TIBC), serum 2024 025 [facility], [address] [facility], [facility], [place], [address], 5 08:24:40 CMP, serum or plasma 2024 025 [facility], [facility], [facility], [place], [address], 5 06:19:19 HbA1c (hemoglobi n A1c), blood 2023 024 [email or web address] In-Office Order, Internal Use Only DO Not Attach Compendium DO Not Attach Compendium, Do Not Delete/merge, [id number] 4 11:50:17 CMP, serum or plasma 2023 024 [facility], [address] [facility], [facility], [place], [address], 4 06:17:26 lipid panel, serum 2023 024 [facility], [facility], [facility], [place], [address], 4 06:17:25 CBC w/ auto diff 2023 024 [facility], [address] [facility], [facility], [place], [address], 4 06:17:27 HbA1c (hemoglobi n A1c), blood 2023 024 [id number] In-Office Order, Internal Use Only DO Not Attach Compendium DO Not Attach Compendium, Do Not Delete/merge, [id number] 4 07:04:43 Referral None recorded. Procedures None recorded. Surgeries None recorded. Imaging home sleep study 2022 023 [facility], 1 [facility] [place], [address], 3 09:01:02 Medication Orders pantoprazo le 40 mg tablet,del ayed release 2023 024 [place] [address] [place], [address], 4 11:54:59 lidocaine 5 % topical ointment 2023 024 [place] [address] [place], [address], 4 12:17:33 albuterol sulfate HFA 90 mcg/actuat ion aerosol inhaler 2023 024 [place] [address] [place], [address], 4 12:34:11 doxycyclin e monohydrat e 100 mg capsule 2023 024 [place] [address] [place], [address], 4 12:22:32 pantoprazo le 40 mg tablet,del ayed release 2022 023 [place] [address] [place], [address], 4 10:51:50 Patient TargetsNo targets recorded. Patient Instructions Encounter Date Encounter Id Patient Instructions Last Modified By Organization Details Last Modified Time 02/02/2023 [id number] A healthy lifestyle: care instructions [email or web address] Not available 02/02/2023 17:46:25 I discussed the patient s presentation, findings, assessment and plan with the resident during or immediately after the time of service. I agree with the resident s findings, assessment, and plan as documented in the note above. Radha Perry MD. [facility] [email or web address] Not available 02/02/2023 11:59:17 07/04/2023 [id number] personality disorders: care instructions [email or web address] Not available 07/05/2023 07:04:39 learning about t ype 2 diabetes [email or web address] Not available 07/04/2023 10:50:48 type 2 diabetes: care instructions Not available 07/04/2023 10:50:48 10/01/2023 [id number] constipation: ca re instructions [email or web address] Not available 10/01/2023 12:34:42 A healthy lifestyle: care instructions [email or web address] Not available 10/01/2023 12:34:10 learning about t ype 2 diabetes [email or web address] Not available 10/01/2023 12:34:42 type 2 diabetes: care instructions [email or web address] Not available 10/01/2023 12:34:42 04/09/2024 [id number] learning about t ype 2 diabetes [email or web address] Not available 04/09/2024 11:50:16 type 2 diabetes: care instructions [email or web address] Not available 04/09/2024 11:50:16 gastroesophageal reflux disease (GERD): care instructions [email or web address] Not available 04/09/2024 11:54:55 costochondritis: care instructions [email or web address] Not available 04/09/2024 12:17:32 06/05/2024 [id number] learning about t ype 2 diabetes [email or web address] Not available 06/05/2024 12:05:47 type 2 diabetes: care instructions [email or web address] Not available 06/05/2024 12:05:47 learning about h igh blood pressure Not available 06/05/2024 12:05:47 chronic obstruct nely pulmonary disease (COPD): care instructions [email or web address] Not available 06/05/2024 12:05:47 learning about c opd and how to prevent lung infections [email or web address] Not available 06/05/2024 12:05:47 Reason for Referral None Reported. Results Created Date Observation Date Name Description Value Unit Range Abnormal Flag Note LastModifiedBy Organization Detail LastModifiedTime 01/26/2001/25/2023 HbA1c (hemo globi n A1c), blood HbA1c 9.2 Not Available In-Office Order Internal Use Only DO Not Attach Compendium DO Not Attach Compendium, Do Not Delete/merge, [id number] 01/25/2023 11:46:34 07/05/19 24 07/05/2023 HbA1c (hemo globi n A1c), blood HbA1c 8.8 Not Available In-Office Order Internal Use Only DO Not Attach Compendium DO Not Attach Compendium, Do Not Delete/merge, [id number] 07/05/2023 07:04:08 10/01/19 24 10/01/2023 LIPID PANEL cholesterol, total 233 mg/dL 100-19 9 above high normal Not Available [facility] Department [address] [place] [address], [address], 10/02/2023 06:17:25 10/01/19 24 10/01/2023 LIPID PANEL triglyceride s 168 mg/dL 0-149 above high normal Not Available [facility] Department [address] [place], [address], 10/02/2023 06:17:25 10/01/19 24 10/01/2023 LIPID PANEL HDL cholesterol 53 mg/dL 40-999 Not Available [facility] Department [address] [place], [address], 10/02/2023 06:17:25 10/01/19 24 10/01/2023 LIPID PANEL VLDL cholesterol cecy 34 mg/dL 5-40 Not Available [facility] Department [address] [place], [address], 10/02/2023 06:17:25 10/01/19 24 10/01/2023 LIPID PANEL LDL chol calc ([facility]) 169 mg/dL 0-99 above high normal Not Available [facility] Department [address] [place], [address], 10/02/2023 06:17:25 10/01/19 24 10/01/2023 COMP. METAB OLIC PANEL (14) glucose 243 mg/dL 70-99 above high normal Not Available [facility] Department [address] [place], [address], 10/02/2023 06:17:26 10/01/19 24 10/01/2023 COMP. METAB OLIC PANEL (14) BUN 15 mg/dL 6-24 Not Available [facility] Department [address] [place], [address], 10/02/2023 06:17:26 10/01/19 24 10/01/2023 COMP. METAB OLIC PANEL (14) creatinine 0.92 mg/dL 0.76-1 .27 Not Available [facility] Department [address] [place] [address], [address], 10/02/2023 06:17:26 10/01/19 24 10/01/2023 COMP. METAB OLIC PANEL (14) eGFR 101 >=60 Units for eGFR value s are mL/mi n/1.7 3 The eGFR Calcu latio n has not been valid ated for patie nts under the age of 18. If test resul ts are displ ayed for a patie nt under the age of 18, disre antwon that value . Not Available [facility] Department [address] [place], [address], 10/02/2023 06:17:26 10/01/19 24 10/01/2023 COMP. METAB OLIC PANEL (14) BUN/creatini ne ratio 17 9-20 Not Available [facility] Department [address] [place], [address], 10/02/2023 06:17:26 10/01/19 24 10/01/2023 COMP. METAB OLIC PANEL (14) sodium 136 mmol/ L 134-14 4 Not Available [facility] Department [address] [place], [address], 10/02/2023 06:17:26 10/01/19 24 10/01/2023 COMP. METAB OLIC PANEL (14) potassium 4.5 mmol/ L 3.5-5. 2 Not Available [facility] Department [address] [place], [address], 10/02/2023 06:17:26 10/01/19 24 10/01/2023 COMP. METAB OLIC PANEL (14) chloride 98 mmol/ L 96-106 Not Available [facility] Department [address] [place], [address], 10/02/2023 06:17:26 10/01/19 24 10/01/2023 COMP. METAB OLIC PANEL (14) carbon dioxide, total 23 mmol/ L 20-29 Not Available [facility] Department [address] [place], [address], 10/02/2023 06:17:26 10/01/19 24 10/01/2023 COMP. METAB OLIC PANEL (14) calcium 9.7 mg/dL 8.7-10 .2 Not Available [facility] Department [address] [place], [address], 10/02/2023 06:17:26 10/01/19 24 10/01/2023 COMP. METAB OLIC PANEL (14) protein, total 7.7 g/dL 6.0-8. 5 Not Available [facility] Department [address] [place], [address], 10/02/2023 06:17:26 10/01/19 24 10/01/2023 COMP. METAB OLIC PANEL (14) albumin 4.4 g/dL 4.1-5. 1 Not Available [facility] Department [address] [place], [address], 10/02/2023 06:17:26 10/01/19 24 10/01/2023 COMP. METAB OLIC PANEL (14) globulin, total 3.3 g/dL 1.5-4. 5 Not Available [facility] Department [address] [place], [address], 10/02/2023 06:17:26 10/01/19 24 10/01/2023 COMP. METAB OLIC PANEL (14) A/G ratio 1.0 1.2-2. 2 below low normal Not Available [facility] Department [address] [place] [address], [address], 10/02/2023 06:17:26 10/01/19 24 10/01/2023 COMP. METAB OLIC PANEL (14) bilirubin, total 0.5 mg/dL 0.0-1. 2 Not Available [facility] Department [address] [place] [address], [address], 10/02/2023 06:17:26 10/01/19 24 10/01/2023 COMP. METAB OLIC PANEL (14) alkaline phosphatase 166 IU/L 44-121 above high normal Not Available [facility] Department [address] [place], [address], 10/02/2023 06:17:26 10/01/19 24 10/01/2023 COMP. METAB OLIC PANEL (14) AST (SGOT) 24 IU/L 0-40 Not Available [facility] Department [address] [place] [address], [address], 10/02/2023 06:17:26 10/01/19 24 10/01/2023 COMP. METAB OLIC PANEL (14) ALT (SGPT) 39 IU/L 0-44 Not Available [facility] Department [address] [place] [address], [address], 10/02/2023 06:17:26 10/01/19 24 10/01/2023 CBC WITH DIFFE RENTI AL/PL ATELE T WBC 10.5 x10e3 /uL 3.4-10 .8 Not Available [facility] Department [address] [place] [address], [address], 10/02/2023 06:17:27 10/01/19 24 10/01/2023 CBC WITH DIFFE RENTI AL/PL ATELE T RBC 5.37 x10e6 /uL 4.14-5 .80 Not Available [facility] Department [address] [place], [address], 10/02/2023 06:17:27 10/01/19 24 10/01/2023 CBC WITH DIFFE RENTI AL/PL ATELE T hemoglobin 16.0 g/dL 13.0-1 7.7 Not Available [facility] Department [address] [place], [address], 10/02/2023 06:17:27 10/01/19 24 10/01/2023 CBC WITH DIFFE RENTI AL/PL ATELE T hematocrit 46.7 % 37.5-5 1.0 Not Available [facility] Department [address] [place], [address], 10/02/2023 06:17:27 10/01/19 24 10/01/2023 CBC WITH DIFFE RENTI AL/PL ATELE T MCV 87 fL 79-97 Not Available [facility] Department [address] [place], [address], 10/02/2023 06:17:27 10/01/19 24 10/01/2023 CBC WITH DIFFE RENTI AL/PL ATELE T MCH 29.8 pg 26.6-3 3.0 Not Available [facility] Department [address] [place], [address], 10/02/2023 06:17:27 10/01/19 24 10/01/2023 CBC WITH DIFFE RENTI AL/PL ATELE T MCHC 34.3 g/dL 31.5-3 5.7 Not Available [facility] Department [address] [place], [address], 10/02/2023 06:17:27 10/01/19 24 10/01/2023 CBC WITH DIFFE RENTI AL/PL ATELE T RDW 12.0 % 11.5-1 4.5 Not Available [facility] Department [address] [place], [address], 10/02/2023 06:17:27 10/01/19 24 10/01/2023 CBC WITH DIFFE RENTI AL/PL ATELE T platelets 313 x10e3 /uL 150-45 0 Not Available [facility] Department [address] [place], [address], 10/02/2023 06:17:27 10/01/19 24 10/01/2023 CBC WITH DIFFE RENTI AL/PL ATELE T neutrophils 61 % notest b. Not Available [facility] Department [address] [place] [address], [address], 10/02/2023 06:17:27 10/01/19 24 10/01/2023 CBC WITH DIFFE RENTI AL/PL ATELE T lymphs 30 % notest b. Not Available [facility] Department [address] [place] [address], [address], 10/02/2023 06:17:27 10/01/19 24 10/01/2023 CBC WITH DIFFE RENTI AL/PL ATELE T monocytes 6 % notest b. Not Available [facility] Department [address] [place], [address], 10/02/2023 06:17:27 10/01/19 24 10/01/2023 CBC WITH DIFFE RENTI AL/PL ATELE T eos 2 % notest b. Not Available [facility] Department [address] [place] [address], [address], 10/02/2023 06:17:27 10/01/19 24 10/01/2023 CBC WITH DIFFE RENTI AL/PL ATELE T basos 1 % notest b. Not Available [facility] Department [address] [place] [address], [address], 10/02/2023 06:17:27 10/01/19 24 10/01/2023 CBC WITH DIFFE RENTI AL/PL ATELE T neutrophils (absolute) 6.4 x10e3 /uL 1.4-7. 0 Not Available [facility] Department [address] [place], [address], 10/02/2023 06:17:27 10/01/19 24 10/01/2023 CBC WITH DIFFE RENTI AL/PL ATELE T lymphs (absolute) 3.1 x10e3 /uL 0.7-3. 1 Not Available [facility] Department [address] [place] [address], [address], 10/02/2023 06:17:27 10/01/19 24 10/01/2023 CBC WITH DIFFE RENTI AL/PL ATELE T monocytes(ab solute) 0.6 x10e3 /uL 0.1-0. 9 Not Available [facility] Department [address] [place], [address], 10/02/2023 06:17:27 10/01/19 24 10/01/2023 CBC WITH DIFFE RENTI AL/PL ATELE T eos (absolute) 0.3 x10e3 /uL 0.0-0. 4 Not Available [facility] Department [address] [place] [address], [address], 10/02/2023 06:17:27 10/01/19 24 10/01/2023 CBC WITH DIFFE RENTI AL/PL ATELE T baso (absolute) 0.1 x10e3 /uL 0.0-0. 2 Not Available [facility] Department [address] [place] [address], [address], 10/02/2023 06:17:27 10/01/19 24 10/01/2023 CBC WITH DIFFE RENTI AL/PL ATELE T immature granulocytes 0.6 % notest b. Not Available [facility] Department [address] [place], [address], 10/02/2023 06:17:27 10/01/19 24 10/01/2023 CBC WITH DIFFE RENTI AL/PL ATELE T immature grans (abs) 0.1 x10e3 /uL 0.0-0. 1 Not Available [facility] Department [address] [place] [address], [address], 10/02/2023 06:17:27 10/01/19 24 10/01/2023 CBC WITH DIFFE RENTI AL/PL ATELE T NRBC 0 % 0-0 Not Available [facility] Department [address] [place] [address], [address], 10/02/2023 06:17:27 04/09/20 24 04/09/2024 HbA1c (hemo globi n A1c), blood HbA1c 12.6 Not Available In-Office Order Internal Use Only DO Not Attach Compendium DO Not Attach Compendium, Do Not Delete/merge, [id number] 04/09/2024 11:50:05 06/05/19 25 06/05/2024 COMP. METAB OLIC PANEL (14) glucose 341 mg/dL 70-99 above high normal Not Available [facility] Department [address] [place] [address], [address], 06/06/2024 06:19:19 06/05/19 25 06/05/2024 COMP. METAB OLIC PANEL (14) BUN 11 mg/dL 6-24 Not Available [facility] Department [address] [place] [address], [address], 06/06/2024 06:19:19 06/05/19 25 06/05/2024 COMP. METAB OLIC PANEL (14) creatinine 0.84 mg/dL 0.76-1 .27 Not Available [facility] Department [address] [place] [address], [address], 06/06/2024 06:19:19 06/05/19 25 06/05/2024 COMP. METAB OLIC PANEL (14) eGFR 106 >=60 Units for eGFR value s are mL/mi n/1.7 3 The eGFR Calcu latio n has not been valid ated for patie nts under the age of 18. If test resul ts are displ ayed for a patie nt under the age of 18, disre antwon that value . Not Available [facility] Department [address] [place] [address], [address], 06/06/2024 06:19:19 06/05/19 25 06/05/2024 COMP. METAB OLIC PANEL (14) BUN/creatini ne ratio 13 9-20 Not Available [facility] Department [address] [place] [address], [address], 06/06/2024 06:19:19 06/05/19 25 06/05/2024 COMP. METAB OLIC PANEL (14) sodium 140 mmol/ L 134-14 4 Not Available [facility] Department [address] [place] [address], [address], 06/06/2024 06:19:19 06/05/19 25 06/05/2024 COMP. METAB OLIC PANEL (14) potassium 4.2 mmol/ L 3.5-5. 2 Not Available [facility] Department [address] [place] [address], [address], 06/06/2024 06:19:19 06/05/19 25 06/05/2024 COMP. METAB OLIC PANEL (14) chloride 102 mmol/ L 96-106 Not Available [facility] Department [address] [place] [address], [address], 06/06/2024 06:19:19 06/05/19 25 06/05/2024 COMP. METAB OLIC PANEL (14) carbon dioxide, total 24 mmol/ L 20-29 Not Available [facility] Department [address] [place] [address], [address], 06/06/2024 06:19:19 06/05/19 25 06/05/2024 COMP. METAB OLIC PANEL (14) calcium 9.6 mg/dL 8.7-10 .2 Not Available [facility] Department [address] [place], [address], 06/06/2024 06:19:19 06/05/19 25 06/05/2024 COMP. METAB OLIC PANEL (14) protein, total 7.0 g/dL 6.0-8. 5 Not Available [facility] Department [address] [place], [address], 06/06/2024 06:19:19 06/05/19 25 06/05/2024 COMP. METAB OLIC PANEL (14) albumin 4.2 g/dL 3.8-4. 9 Not Available [facility] Department [address] [place] [address], [address], 06/06/2024 06:19:19 06/05/19 25 06/05/2024 COMP. METAB OLIC PANEL (14) globulin, total 2.8 g/dL 1.5-4. 5 Not Available [facility] Department [address] [place], [address], 06/06/2024 06:19:19 06/05/19 25 06/05/2024 COMP. METAB OLIC PANEL (14) A/G ratio 1.0 1.2-2. 2 below low normal Not Available [facility] Department [address] [place] [address], [address], 06/06/2024 06:19:19 06/05/19 25 06/05/2024 COMP. METAB OLIC PANEL (14) bilirubin, total 0.3 mg/dL 0.0-1. 2 Not Available [facility] Department [address] [place], [address], 06/06/2024 06:19:19 06/05/19 25 06/05/2024 COMP. METAB OLIC PANEL (14) alkaline phosphatase 102 IU/L 44-121 Not Available [facility] Department [address] [place], [address], 06/06/2024 06:19:19 06/05/1906/05/2024 COMP. METAB OLIC PANEL (14) AST (SGOT) 22 IU/L 0-40 Not Available [facility] Department [address] [place], [address], 06/06/2024 06:19:19 06/05/1906/05/2024 COMP. METAB OLIC PANEL (14) ALT (SGPT) 33 IU/L 0-44 Not Available [facility] Department [address] [place], [address], 06/06/2024 06:19:19 06/05/1906/05/2024 CBC WITH DIFFE RENTI AL/PL ATELE T WBC 9.6 x10e3 /uL 3.4-10 .8 Not Available [facility] Department [address] [place], [address], 06/06/2024 06:19:20 06/05/1906/05/2024 CBC WITH DIFFE RENTI AL/PL ATELE T RBC 5.09 x10e6 /uL 4.14-5 .80 Not Available [facility] Department [address] [place], [address], 06/06/2024 06:19:20 06/05/1906/05/2024 CBC WITH DIFFE RENTI AL/PL ATELE T hemoglobin 15.0 g/dL 13.0-1 7.7 Not Available [facility] Department [address] [place], [address], 06/06/2024 06:19:20 06/05/1906/05/2024 CBC WITH DIFFE RENTI AL/PL ATELE T hematocrit 43.6 % 37.5-5 1.0 Not Available [facility] Department [address] [place], [address], 06/06/2024 06:19:20 06/05/19 25 06/05/2024 CBC WITH DIFFE RENTI AL/PL ATELE T MCV 86 fL 79-97 Not Available [facility] Department [address] [place], [address], 06/06/2024 06:19:20 06/05/19 25 06/05/2024 CBC WITH DIFFE RENTI AL/PL ATELE T MCH 29.5 pg 26.6-3 3.0 Not Available [facility] Department [address] [place], [address], 06/06/2024 06:19:20 06/05/1906/05/2024 CBC WITH DIFFE RENTI AL/PL ATELE T MCHC 34.4 g/dL 31.5-3 5.7 Not Available [facility] Department [address] [place], [address], 06/06/2024 06:19:20 06/05/1906/05/2024 CBC WITH DIFFE RENTI AL/PL ATELE T RDW 12.0 % 11.5-1 4.5 Not Available [facility] Department [address] [place], [address], 06/06/2024 06:19:20 06/05/19 25 06/05/2024 CBC WITH DIFFE RENTI AL/PL ATELE T platelets 282 x10e3 /uL 150-45 0 Not Available [facility] Department [address] [place], [address], 06/06/2024 06:19:20 06/05/19 25 06/05/2024 CBC WITH DIFFE RENTI AL/PL ATELE T neutrophils 62 % notest b. Not Available [facility] Department [address] [place], [address], 06/06/2024 06:19:20 06/05/19 25 06/05/2024 CBC WITH DIFFE RENTI AL/PL ATELE T lymphs 31 % notest b. Not Available [facility] Department [address] [place], [address], 06/06/2024 06:19:20 06/05/1906/05/2024 CBC WITH DIFFE RENTI AL/PL ATELE T monocytes 5 % notest b. Not Available [facility] Department [address] [place], [address], 06/06/2024 06:19:20 06/05/1906/05/2024 CBC WITH DIFFE RENTI AL/PL ATELE T eos 1 % notest b. Not Available [facility] Department [address] [place], [address], 06/06/2024 06:19:20 06/05/1906/05/2024 CBC WITH DIFFE RENTI AL/PL ATELE T basos 1 % notest b. Not Available [facility] Department [address] [place], [address], 06/06/2024 06:19:20 06/05/1906/05/2024 CBC WITH DIFFE RENTI AL/PL ATELE T neutrophils (absolute) 6.0 x10e3 /uL 1.4-7. 0 Not Available [facility] Department [address] [place], [address], 06/06/2024 06:19:20 06/05/1906/05/2024 CBC WITH DIFFE RENTI AL/PL ATELE T lymphs (absolute) 3.0 x10e3 /uL 0.7-3. 1 Not Available [facility] Department [address] [place], [address], 06/06/2024 06:19:20 06/05/1906/05/2024 CBC WITH DIFFE RENTI AL/PL ATELE T monocytes(ab solute) 0.5 x10e3 /uL 0.1-0. 9 Not Available [facility] Department [address] [place], [address], 06/06/2024 06:19:20 06/05/19 25 06/05/2024 CBC WITH DIFFE RENTI AL/PL ATELE T eos (absolute) 0.1 x10e3 /uL 0.0-0. 4 Not Available [facility] Department [address] [place], [address], 06/06/2024 06:19:20 06/05/19 25 06/05/2024 CBC WITH DIFFE RENTI AL/PL ATELE T baso (absolute) 0.1 x10e3 /uL 0.0-0. 2 Not Available [facility] Department [address] [place], [address], 06/06/2024 06:19:20 06/05/19 25 06/05/2024 CBC WITH DIFFE RENTI AL/PL ATELE T immature granulocytes 0.3 % notest b. Not Available [facility] Department [address] [place], [address], 06/06/2024 06:19:20 06/05/19 25 06/05/2024 CBC WITH DIFFE RENTI AL/PL ATELE T immature grans (abs) 0.0 x10e3 /uL 0.0-0. 1 Not Available [facility] Department [address] [place], [address], 06/06/2024 06:19:20 06/05/19 25 06/05/2024 CBC WITH DIFFE RENTI AL/PL ATELE T NRBC 0 % 0-0 Not Available [facility] Department [address] [place], [address], 06/06/2024 06:19:20 06/05/19 25 06/06/2024 IRON AND TIBC iron bind.cap.(TI BC) 284 ug/dL 250-45 0 Not Available [facility] ([facility]) [address] [facility], [place], [address], 06/06/2024 08:24:40 06/05/19 25 06/06/2024 IRON AND TIBC UIBC 198 ug/dL 111-34 3 Not Available [facility] ([facility]) [address] [facility], [place], [address], 06/06/2024 08:24:40 06/05/19 25 06/06/2024 IRON AND TIBC iron 86 ug/dL 38-169 Not Available [facility] ([facility]) [address] [facility], [place], [address], 06/06/2024 08:24:40 06/05/19 25 06/06/2024 IRON AND TIBC iron saturation 30 % 15-55 Not Available [facility] ([facility]) [address] [facility], [place], [address], 06/06/2024 08:24:40 06/05/19 25 06/06/2024 TSH TSH 0.680 uIU/m L 0.450- 4.500 Not Available [facility] ([facility]) [address] [facility], [place], [address], 06/06/2024 08:24:41 09/11/19 25 09/10/2024 CBC W Auto Diffe renti al panel - Blood leukocytes [#/volume] in blood by automated count 12.19 text: 4.00 - 12.00 10(3)/ mcL high WBC 12.19 (H) 4.00 - 12.00 10(3) /mcL 09/10 6:03 PM CDT [facility] [employer] [facility] Not Available Not Available 09/15/2024 09:57:35 09/11/19 25 09/10/2024 CBC W Auto Diffe renti al panel - Blood erythrocytes [#/volume] in blood by automated count 5.18 text: 4.40 - 5.80 10(6)/ mcL RBC 5.18 4.40 - 5.80 10(6) /mcL 09/10 6:03 PM CDT [facility] Not Available Not Available 09/15/2024 09:57:35 09/11/1909/10/2024 CBC W Auto Diffe renti al panel - Blood hemoglobin [mass/volume ] in blood 15.6 g/dL low: 13g/dL high: 16.5g/ dL HEMOG LOBIN (HGB) 15.6 13.0 - 16.5 g/dL 09/10 6:03 PM CDT [facility] Not Available Not Available 09/15/2024 09:57:35 09/11/1909/10/2024 CBC W Auto Diffe renti al panel - Blood hematocrit [volume fraction] of blood by automated count 43.6 % low: 38%hig h: 50% HEMAT OCRIT (HCT) 43.6 38.0 - 50.0 % 09/10 6:03 PM CDT [facility] [employer] [facility] Not Available Not Available 09/15/2024 09:57:35 09/11/1909/10/2024 CBC W Auto Diffe margaritati al panel - Blood MCV [entitic mean volume] in red blood cells by automated count 84.2 fL low: 82fLhi gh: 96fL MCV 84.2 82.0 - 96.0 fL 09/10 6:03 PM CDT [facility] Not Available Not Available 09/15/2024 09:57:35 09/11/1909/10/2024 CBC W Auto Diffe paul al panel - Blood MCH [entitic mass] by automated count 30.1 pg low: 26pghi gh: 32pg MCH 30.1 26.0 - 32.0 pg 09/10 6:03 PM CDT [facility] [employer] [facility] Not Available Not Available 09/15/2024 09:57:35 09/11/19 25 09/10/2024 CBC W Auto Diffe renti al panel - Blood MCHC [entitic mass/volume] in red blood cells by automated count 35.8 g/dL low: 31g/dL high: 36g/dL MCHC 35.8 31.0 - 36.0 g/dL 09/10 6:03 PM CDT [facility] Not Available Not Available 09/15/2024 09:57:35 09/11/19 25 09/10/2024 CBC W Auto Diffe renti al panel - Blood platelets [#/volume] in blood 248 text: 140 - 440 10(3)/ mcL PLATE LET COUNT 248 140 - 440 10(3) /mcL 09/10 6:03 PM CDT [facility] Not Available Not Available 09/15/2024 09:57:35 09/11/19 25 09/10/2024 CBC W Auto Diffe renti al panel - Blood erythrocyte [distwidth] in red blood cells by automated count 12.4 % low: 11.8%h igh: 15.5% RDW 12.4 11.8 - 15.5 % 09/10 6:03 PM CDT [facility] Not Available Not Available 09/15/2024 09:57:35 09/11/19 25 09/10/2024 CBC W Auto Diffe renti al panel - Blood platelet [entitic mean volume] in blood by automated count 11.5 fL low: 8fLhig h: 12.6fL MPV 11.5 8.0 - 12.6 fL 09/10 6:03 PM CDT [facility] Not Available Not Available 09/15/2024 09:57:35 09/11/19 25 09/10/2024 CBC W Auto Diffe renti al panel - Blood neutrophils/ leukocytes in blood by automated count 68.7 % low: 40%hig h: 68% high NEUTR OPHIL S 68.7 (H) 40.0 - 68.0 % 09/10 6:[address] [facility] Not Available Not Available 09/15/2024 09:57:35 09/11/19 25 09/10/2024 CBC W Auto Diffe renti al panel - Blood lymphocytes/ leukocytes in blood by automated count 22.8 % low: 19%hig h: 49% LYMPH OCYTE S 22.8 19.0 - 49.0 % 09/10 6:03 PM CDT [facility] Not Available Not Available 09/15/2024 09:57:35 09/11/19 25 09/10/2024 CBC W Auto Diffe renti al panel - Blood monocytes/le ukocytes in blood by automated count 6.9 % low: 3%high : 13% MONOC YTES 6.9 3.0 - 13.0 % 09/10 6:03 PM [facility] Not Available Not Available 09/15/2024 09:57:35 09/11/19 25 09/10/2024 CBC W Auto Diffe renti al panel - Blood eosinophils/ leukocytes in blood by automated count 0.9 % low: 0%high : 8% EOSIN OPHIL S 0.9 0.0 - 8.0 % 09/10 6:03 PM CDT [facility] Not Available Not Available 09/15/2024 09:57:35 09/11/19 25 09/10/2024 CBC W Auto Diffe renti al panel - Blood basophils/le ukocytes in blood by automated count 0.7 % low: 0%high : 1% BASOP HILS 0.7 0.0 - 1.0 % 09/10 6:03 PM CD[facility] Not Available Not Available 09/15/2024 09:57:35 09/11/1909/10/2024 CBC W Auto Diffe renti al panel - Blood neutrophils [#/volume] in blood by automated count 8.38 text: 1.40 - 5.30 10(3)/ mcL high ABSOL HOOPA NEUTR OPHIL S 8.38 (H) 1.40 - 5.30 10(3) /mcL 09/10 6:03 PM CDT [facility] Not Available Not Available 09/15/2024 09:57:35 09/11/19 25 09/10/2024 CBC W Auto Diffe renti al panel - Blood lymphocytes [#/volume] in blood by automated count 2.78 text: 0.90 - 3.30 10(3)/ mcL ABSOL HOOPA LYMPH OCYTE S 2.78 0.90 - 3.30 10(3) /mcL 09/10 6:03 PM CDT [facility] Not Available Not Available 09/15/2024 09:57:35 09/11/19 25 09/10/2024 CBC W Auto Diffe renti al panel - Blood monocytes [#/volume] in blood by automated count 0.84 text: 0.10 - 0.90 10(3)/ mcL ABSOL HOOPA MONOC YTES 0.84 0.10 - 0.90 10(3) /mcL 09/10 6:03 PM CDT [facility] Not Available Not Available 09/15/2024 09:57:35 09/11/1909/10/2024 CBC W Auto Diffe renti al panel - Blood eosinophils [#/volume] in blood by automated count 0.11 text: 0.00 - 0.50 10(3)/ mcL ABSOL HOOPA EOSIN OPHIL 0.11 0.00 - 0.50 10(3) /mcL 09/10 6:03 PM CDT [facility] Not Available Not Available 09/15/2024 09:57:35 09/11/1909/10/2024 CBC W Auto Diffe renti al panel - Blood basophils [#/volume] in blood by automated count 0.08 text: 0.00 - 0.10 10(3)/ mcL ABSOL HOOPA BASOP HILS 0.08 0.00 - 0.10 10(3) /mcL 09/10 6:03 PM CD[facility] Not Available Not Available 09/15/2024 09:57:35 09/11/1909/10/2024 CBC W Auto Diffe renti al panel - Blood nucleated erythrocytes /leukocytes [ratio] in blood 0 NRBC PER 100 WBC 0 09/10 6:03 PM CDT [facility] Not Available Not Available 09/15/2024 09:57:35 09/11/19 09/10/2024 CBC W Auto Diffe renti al panel - Blood interpretati on and review of laboratory results Abnorm al Not Available Not Available 09:57:35 09/11/19 25 09/10/2024 Compr ehens nely metab olic 1999 panel - Serum or Plasm a sodium [moles/volum e] in serum or plasma 133 mmol/ L low: 136mmo l/Lhig h: 145mmo l/L low SODIU M 133 (L) 136 - 145 mmol/ L 09/10 6:26 PM CDT [facility] Not Available Not Available 09/15/2024 09:57:35 09/11/1909/10/2024 Compr ehens nely metab olic 1999 panel - Serum or Plasm a potassium [moles/volum e] in serum or plasma 3.4 mmol/ L low: 3.5mmo l/Lhig h: 5.1mmo l/L low POTAS SIUM 3.4 (L) 3.5 - 5.1 mmol/ L 09/10 6:26 PM CDT [facility] Not Available Not Available 09/15/2024 09:57:35 09/11/1909/10/2024 Compr ehens nely metab olic 1999 panel - Serum or Plasm a chloride [moles/volum e] in serum or plasma 101 mmol/ L low: 98mmol /Lhigh : 107mmo l/L CHLOR MINISTERIO 101 98 - 107 mmol/ L 09/10 6:26 PM CDT [facility] Not Available Not Available 09/15/2024 09:57:35 09/11/19 25 09/10/2024 Compr ehens nely metab olic 1999 panel - Serum or Plasm a carbon dioxide, total [moles/volum e] in serum or plasma 21 mmol/ L low: 22mmol /Lhigh : 30mmol /L low CO2, VENOU S 21 (L) 22 - 30 mmol/ L 09/10 6:26 PM CDT [facility] Not Available Not Available 09/15/2024 09:57:35 09/11/19 25 09/10/2024 Compr ehens nely metab olic 1999 panel - Serum or Plasm a anion gap in serum or plasma by calculation 14.4 mmol/ L high: 18mmol /L ANION GAP 14.4 <18.0 mmol/ L 09/10 6:26 PM CDT [facility] [employer] [facility] Not Available Not Available 09/15/2024 09:57:35 09/11/19 25 09/10/2024 Compr ehens nely metab olic 1999 panel - Serum or Plasm a glucose [mass/volume ] in serum or plasma 278 mg/dL low: 70mg/d Lhigh: 99mg/d L high GLUCO SE 278 (H) 70 - 99 mg/dL 09/10 6:26 PM CDT [facility] [employer] [facility] Not Available Not Available 09/15/2024 09:57:35 09/11/19 25 09/10/2024 Compr ens nely metab olic 1999 panel - Serum or Plasm a urea nitrogen [mass/volume ] in serum or plasma 11 mg/dL low: 8mg/dL high: 26mg/d L BUN 11 8 - 26 mg/dL 09/10 6:26 PM CDT [facility] [employer] [facility] Not Available Not Available 09/15/2024 09:57:35 09/11/19 25 09/10/2024 Compr DialedINens nely metab olic 1999 panel - Serum or Plasm a creatinine [mass/volume ] in serum or plasma 1.04 mg/dL low: 0.7mg/ dLhigh : 1.3mg/ dL CREAT ININE , BLOOD 1.04 0.70 - 1.30 mg/dL 09/10 6:26 PM CDT [facility] [employer] [facility] Not Available Not Available 09/15/2024 09:57:35 09/11/19 25 09/10/2024 Compr ehens nely metab olic 2000 panel - Serum or Plasm a urea nitrogen/cre atinine [mass ratio] in serum or plasma 11 text: 12 - 20 ratio low BUN/C REATI NINE RATIO 11 (L) 12 - 20 ratio 09/10 6:26 PM CDT [facility] Not Available Not Available 09/15/2024 09:57:35 09/11/19 25 09/10/2024 Compr DialedINens nely metab olic 1999 panel - Serum or Plasm a protein [mass/volume ] in serum or plasma 7.9 g/dL low: 6g/dLh igh: 8g/dL TOTAL PROTE IN 7.9 6.0 - 8.0 g/dL 09/10 6:26 PM CDT [facility] Not Available Not Available 09/15/2024 09:57:35 09/11/1909/10/2024 Compr DialedINens nely metab olic 1999 panel - Serum or Plasm a albumin [mass/volume ] in serum or plasma 4.2 g/dL low: 3.5g/d Lhigh: 5g/dL ALBUM IN 4.2 3.5 - 5.0 g/dL 09/10 6:26 PM CDT [facility] [employer] [facility] Not Available Not Available 09/15/2024 09:57:35 09/11/19 25 09/10/2024 Compr DialedINens nely metab olic 1999 panel - Serum or Plasm a albumin/glob ulin [mass ratio] in serum or plasma 1.1 low: 1high: 2.2 A/G RATIO 1.1 1.0 - 2.2 09/10 6:26 PM CDT [facility] [employer] [facility] Not Available Not Available 09/15/2024 09:57:35 09/11/19 25 09/10/2024 Compr DialedINens nely metab olic 1999 panel - Serum or Plasm a calcium [mass/volume ] in serum or plasma 9.1 mg/dL low: 8.7mg/ dLhigh : 10.5mg /dL CALCI UM 9.1 8.7 - 10.5 mg/dL 09/10 6:26 PM CDT [facility] Not Available Not Available 09/15/2024 09:57:35 09/11/19 25 09/10/2024 Compr ehens nely metab olic 1999 panel - Serum or Plasm a bilirubin.to trinh [mass/volume ] in serum or plasma 0.9 mg/dL low: 0.2mg/ dLhigh : 1.2mg/ dL T BILI 0.9 0.2 - 1.2 mg/dL 09/10 6:26 PM CDT [facility] Not Available Not Available 09/15/2024 09:57:35 09/11/1909/10/2024 [facility] DialedINens nely metab ic 1999 panel - Serum or Plasm a aspartate aminotransfe rase [enzymatic activity/vol ume] in serum or plasma 34 U/L high: 43U/L SGOT (AST) 34 <43 U/L 09/10 6:26 PM CDT [facility] [employer] [facility] Not Available Not Available 09/15/2024 09:57:35 09/11/19 25 09/10/2024 Compr ens nely metab olic 1999 panel - Serum or Plasm a alanine aminotransfe rase [enzymatic activity/vol ume] in serum or plasma 34 U/L high: 56U/L SGPT (ALT) 34 <56 U/L 09/10 6:26 PM CDT [facility] [employer] [facility] Not Available Not Available 09/15/2024 09:57:35 09/11/1909/10/2024 [facility] DialedINens nely metab olic 1999 panel - Serum or Plasm a alkaline phosphatase [enzymatic activity/vol ume] in serum or plasma 123 U/L low: 40U/Lh igh: 150U/L ALKAL INE PHOSP HATAS E 123 40 - 150 U/L 09/10 6:26 PM CDT [facility] [employer] [facility] Not Available Not Available 09/15/2024 09:57:35 09/11/19 25 09/10/2024 [facility] [place] nely metab olic 2000 panel - Serum or Plasm a glomerular filtration rate [volume rate/area] in serum, plasma or blood by creatinine-b ased formula (CKD-epi 2020)/1.73 sq M low: 60 GFR, ESTIM ATED >60 >=60 04/09 /2025 6:26 PM CDT [facility] [employer] [facility] Not Available Not Available 09/15/2024 09:57:35 09/11/1909/10/2024 Compr ehens nely metab olic 2000 panel - Serum or Plasm a glomerular filtration rate [volume rate/area] in serum, plasma or blood by creatinine-b ased formula (MDRD)/1.73 sq M among black population low: 60 GFR, EST. AFRIC AN >60 >=60 09/10 6:26 PM CDT [facility] [employer] [facility] Not Available Not Available 09/15/2024 09:57:35 09/11/1909/10/2024 Compr ehens nely metab olic 2000 panel - Serum or Plasm a glomerular filtration rate [volume rate/area] in serum, plasma or blood by creatinine-b ased formula (MDRD)/1.73 sq M among non black population low: 60 GFR, EST. NONAF RICAN >60 >=60 09/10 6:26 PM CDT [facility] Not Available Not Available 09/15/2024 09:57:35 09/11/1909/10/2024 Compr ehens nely metab olic 2000 panel - Serum or Plasm a interpretati on and review of laboratory results Abnorm al Not Available Not Available 09:57:35 09/11/19 25 09/10/2024 Drugs of abuse panel - Urine by Scree n metho d amphetamine [presence] in urine by screen method DETECT ED text: non detect ed abnormal UR AMPHE TAMIN E DETEC DAPHNEY (A) NON DETEC DAPHNEY 09/10 6:26 PM CDT [facility] Not Available Not Available 09/15/2024 09:57:34 09/11/19 25 09/10/2024 Drugs of abuse panel - Urine by Scree n metho d benzodiazepi riley [presence] in urine NON DETECT ED text: non detect ed UR BENZO DIAZE PINES NON DETEC DAPHNEY NON DETEC DAPHNEY 09/10 6:26 PM CDT [facility] Not Available Not Available 09/15/2024 09:57:34 09/11/19 25 09/10/2024 Drugs of abuse panel - Urine by Scree n metho d benzoylecgon ine [presence] in urine DETECT ED text: non detect ed abnormal UR COCAI NE METAB OLITE DETEC DAPHNEY (A) NON DETEC DAPHNEY 09/10 6:26 PM CDT [facility] Not Available Not Available 09/15/2024 09:57:34 09/11/19 25 09/10/2024 Drugs of abuse panel - Urine by Scree n metho d opiates [presence] in urine NON DETECT ED text: non detect ed UR OPIAT ES NON DETEC DAPHNEY NON DETEC DAPHNEY 09/10 6:26 PM CDT [facility] Not Available Not Available 09/15/2024 09:57:34 09/11/19 25 09/10/2024 Drugs of abuse panel - Urine by Scree n metho d phencyclidin e [presence] in urine NON DETECT ED text: non detect ed UR PHENC YCLID INE NON DETEC DAPHNEY NON DETEC DAPHNEY 09/10 6:26 PM CDT [facility] Not Available Not Available 09/15/2024 09:57:34 09/11/19 25 09/10/2024 Drugs of abuse panel - Urine by Scree n metho d cannabinoids [presence] in urine DETECT ED text: non detect ed abnormal UR CANNA BINOI D DETEC DAPHNEY (A) NON DETEC DAPHNEY 09/10 6:26 PM CDT [facility] Not Available Not Available 09/15/2024 09:57:34 09/11/19 25 09/10/2024 Drugs of abuse panel - Urine by Scree n metho d barbiturates [presence] in urine NON DETECT ED text: non detect ed UR PARTHA TURAT E NON DETEC DAPHNEY NON DETEC DAPHNEY 09/10 6:26 PM CDT [facility] Not Available Not Available 09/15/2024 09:57:34 09/11/19 25 09/10/2024 Drugs of abuse panel - Urine by Isidoro chan ur fentanyl NON DETECT ED text: non detect ed UR FENTA NYL NON DETEC DAPHNEY NON DETEC DAPHNEY 09/10 6:26 PM CDT [facility] Not Available Not Available 09/15/2024 09:57:34 09/11/19 25 09/10/2024 Drugs of abuse panel - Urine by Isidoro chan interpretati on and review of laboratory results Abnorm al Not Available Not Available 09:57:34 09/13/19 25 09/12/2024 Gluco se [Mass /volu me] in Arter ial blood glucose [mass/volume ] in capillary blood by glucometer 223 mg/dL low: 70mg/d Lhigh: 99mg/d L high Gluco se WB/PO C 223 (H) 70 - 99 mg/dL 09/12 8:41 PM CDT [facility] Not Available Not Available 09/15/2024 09:56:55 09/13/19 25 09/12/2024 Gluco se [Mass /volu me] in Arter ial blood specimen source identified Cap Finger stick Speci men Type Cap Finge rstic k 09/12 8:41 PM CDT [facility] Not Available Not Available 09/15/2024 09:56:55 09/13/19 25 09/12/2024 Gluco se [Mass /volu me] in Arter ial blood interpretati on and review of laboratory results Abnorm al Not Available Not Available 09:56:55 09/13/19 25 09/12/2024 Gluco se [Mass /volu me] in Arter ial blood glucose [mass/volume ] in capillary blood by glucometer 306 mg/dL low: 70mg/d Lhigh: 99mg/d L high Gluco se WB/PO C 306 (H) 70 - 99 mg/dL 09/12 8:41 PM CDT [facility] Not Available Not Available 09/15/2024 17:14:25 09/13/19 25 09/12/2024 Gluco se [Mass /volu me] in Arter ial blood specimen source identified Cap Finger stick Speci men Type Cap Finge rstic k 09/12 8:41 PM CDT [facility] Not Available Not Available 09/15/2024 17:14:25 09/13/19 25 09/12/2024 Gluco se [Mass /volu me] in Arter ial blood interpretati on and review of laboratory results Abnorm al Not Available Not Available 17:14:25 09/13/19 25 09/12/2024 Gas and Carbo n monox ministerio panel - Venou s blood pH of venous blood 7.42 pH low: 7.32pH high: 7.42pH pH Venou s 7.42 7.32 - 7.42 pH 09/12 1:56 PM CDT [facility] Not Available Not Available 09/15/2024 09:56:56 09/13/19 25 09/12/2024 Gas and Carbo n monox ministerio panel - Venou s blood pO2 venous 64 text: 35 - 40 mmHg high pO2 Venou s 64 (H) 35 - 40 mmHg 09/12 1:56 PM CDT [facility] Not Available Not Available 09/15/2024 09:56:56 09/13/19 25 09/12/2024 Gas and Carbo n monox ministerio panel - Venou s blood pCO2 venous 40 text: 40 - 50 mmHg pCO2 Venou s 40 40 - 50 mmHg 09/12 1:56 PM CDT [facility] Not Available Not Available 09/15/2024 09:56:56 09/13/19 25 09/12/2024 Gas and Carbo n monox ministerio panel - Venou s blood bicarbonate [moles/volum e] in venous blood 25.9 mmol/ L low: 20mmol /Lhigh : 30mmol /L HCO3 Venou s 25.9 20 - 30 mmol/ L 09/12 1:56 PM CDT [facility] Not Available Not Available 09/15/2024 09:56:56 09/13/19 25 09/12/2024 Gas and Carbo n monox ministerio panel - Venou s blood base excess venous 1.3 mmol/ L low: -2mmol /Lhigh : 2mmol/ L Base Exces s Venou s 1.3 -2.0 - 2.0 mmol/ L 09/12 1:56 PM CDT [facility] Not Available Not Available 09/15/2024 09:56:56 09/13/1909/12/2024 Gas and Carbo n monox ministerio panel - Venou s blood oxyhemoglobi n venous 90.4 % Oxyhe moglo bin Venou s 90.4 % 09/12 1:56 PM CDT [facility] Not Available Not Available 09/15/2024 09:56:56 09/13/19 25 09/12/2024 Gas and Carbo n monox ministerio panel - Venou s blood deoxyhemoglo bin (hhb) venous % 7.1 % Deoxy hemog lobin (HHB) Venou s % 7.1 % 09/12 1:56 PM CDT [facility] Not Available Not Available 09/15/2024 09:56:56 09/13/1909/12/2024 Gas and Carbo n monox ministerio panel - Venou s blood methemoglobi n/hemoglobin .total in blood 0.8 % low: 0%high : 2% Methe moglo bin 0.8 0.0 - 2.0 % 09/12 1:56 PM CDT [facility] Not Available Not Available 09/15/2024 09:56:56 09/13/1909/12/2024 Gas and Carbo n monox ministerio panel - Venou s blood carboxyhemog lobin/hemogl obin.total in blood 1.7 % low: 0%high : 2% Carbo xyhem oglob in 1.7 0.0 - 2.0 % 09/12 1:56 PM CDT [facility] Not Available Not Available 09/15/2024 09:56:56 09/13/19 25 09/12/2024 Gas and Carbo n monox ministerio panel - Venou s blood oxygen content in venous blood 18.5 mL/dL text: interp ret within clinic al contex t O2 Edel nt Venou s 18.5 Inter pret withi n clini cecy edel xt ml/dL 09/12 1:56 PM CDT [facility] Not Available Not Available 09/15/2024 09:56:56 09/13/19 25 09/12/2024 Gas and Carbo n monox ministerio panel - Venou s blood hemoglobin [mass/volume ] in blood by oximetry 14.6 g/dL low: 12g/dL high: 17.6g/ dL Hemog lobin by COOX 14.6 12.0 - 17.6 g/dL 09/12 1:56 PM CDT [facility] Not Available Not Available 09/15/2024 09:56:56 09/13/19 25 09/12/2024 Gas and Carbo n monox ministerio panel - Venou s blood oxygen [partial pressure] saturation adjusted to 0.5 in venous blood 93 % low: 70% O2 Satur ation Venou s 93 >=70 % 09/12 1:56 PM CDT [facility] Not Available Not Available 09/15/2024 09:56:56 09/13/1909/12/2024 Gas and Carbo n monox ministerio panel - Venou s blood fi O2 mixed venous 21 % FI O2 Mixed Venou s 21.0 % 09/12 1:56 PM CDT [facility] Not Available Not Available 09/15/2024 09:56:56 09/13/1909/12/2024 Gas and Carbo n monox ministerio panel - Venou s blood Unknown Analyte Carbox yhemog lobin Normal Concen tratio n: Non-sm okers: 0-2%; Smoker s: 0-9%; Toxic: >20% Carbo xyhem oglob in [place] l Myra ntrat ion: Non-s moker s: 0-2%; Smoke rs: 0-9%; Toxic : >20% Not Available Not Available 09/15/2024 09:56:56 09/13/19 25 09/12/2024 Gas and Carbo n monox ministerio panel - Venou s blood interpretati on and review of laboratory results Abnorm al Not Available Not Available 09:56:56 09/13/19 25 09/12/2024 Beta hydro xybut yrate [Mole s/vol ume] in Serum or Plasm a beta hydroxybutyr ate [moles/volum e] in serum or plasma high: 0.5mmo l/L Beta- [place] xybut yrate <0.50 <0.50 mmol/ L 09/12 2:19 PM CDT [facility] Not Available Not Available 09/15/2024 09:56:55 09/13/19 25 09/12/2024 Beta hydro xybut yrate [Mole s/vol ume] in Serum or Plasm a interpretati on and review of laboratory results Normal Not Available Not Available 09/02 09:56:55 09/13/19 25 09/12/2024 HIV 1+2 Ab+HI V1 p24 Ag [Pres ence] in Serum or Plasm a by Immun oassa y HIV 1+2 Ab+HIV1 P24 Ag [presence] in serum or plasma by immunoassay Non-re active text: non-re active HIV Antig en/An tibod y 1 & 2 Non-r eacti ve Non-r eacti ve 09/12 1:45 PM CDT [facility] Not Available Not Available 09/15/2024 09:56:56 09/13/19 25 09/12/2024 HIV 1+2 Ab+HI V1 p24 Ag [Pres ence] in Serum or Plasm a by Immun oassa y interpretati on and review of laboratory results Normal Not Available Not Available 09/02 09:56:56 09/13/19 25 09/12/2024 Cobal alvarado (Katelyn min B12) [Mass /volu me] in Serum or Plasm a cobalamin (vitamin B12) [mass/volume ] in serum or plasma 745 pg/mL low: 213pg/ mLhigh : 816pg/ mL Vitam in B12 745 213 - 816 pg/mL 09/12 1:36 PM CDT [facility] Not Available Not Available 09/15/2024 09:56:55 09/13/1909/12/2024 Cobal alvarado (Katelyn min B12) [Mass /volu me] in Serum or Plasm a interpretati on and review of laboratory results Normal Not Available Not Available 09/02 09:56:55 09/13/19 25 09/12/2024 CBC W Auto Diffe renti al panel - Blood leukocytes [#/volume] in blood by automated count 9.3 text: 4.0 - 10.7 x10e9/ L WBC 9.3 4.0 - 10.7 x10E9 /L 09/12 12:44 PM CDT [facility] Not Available Not Available 09/15/2024 09:56:55 09/13/1909/12/2024 CBC W Auto Diffe renti al panel - Blood erythrocytes [#/volume] in blood by automated count 4.83 text: 4.30 - 5.80 x10e12 /L RBC Count 4.83 4.30 - 5.80 x10E1 2/L 09/12 12:44 PM CDT [facility] Not Available Not Available 09/15/2024 09:56:55 09/13/1909/12/2024 CBC W Auto Diffe renti al panel - Blood hemoglobin [mass/volume ] in blood 14.3 g/dL low: 13.3g/ dLhigh : 17.5g/ dL Hemog lobin 14.3 13.3 - 17.5 g/dL 09/12 12:44 PM CDT [facility] Not Available Not Available 09/15/2024 09:56:55 09/13/1909/12/2024 CBC W Auto Diffe renti al panel - Blood hematocrit [volume fraction] of blood by automated count 40.3 % low: 38.7%h igh: 51.1% Hemat ocrit 40.3 38.7 - 51.1 % 09/12 12:44 PM CDT [facility] Not Available Not Available 09/15/2024 09:56:55 09/13/19 25 09/12/2024 CBC W Auto Diffe renti al panel - Blood MCV [entitic mean volume] in red blood cells by automated count 83.4 fL low: 80fLhi gh: 98fL MCV 83.4 80.0 - 98.0 fL 09/12 12:44 PM [facility] Not Available Not Available 09/15/2024 09:56:55 09/13/19 25 09/12/2024 CBC W Auto Diffe renti al panel - Blood MCH [entitic mass] by automated count 29.6 pg low: 26.7pg high: 33.6pg MCH 29.6 26.7 - 33.6 pg 09/12 12:44 PM CD[facility] Not Available Not Available 09/15/2024 09:56:55 09/13/1909/12/2024 CBC W Auto Diffe renti al panel - Blood MCHC [entitic mass/volume] in red blood cells by automated count 35.5 g/dL low: 31.7g/ dLhigh : 36.3g/ dL MCHC 35.5 31.7 - 36.3 g/dL 09/12 12:44 PM [facility] Not Available Not Available 09/15/2024 09:56:55 09/13/1909/12/2024 CBC W Auto Diffe renti al panel - Blood erythrocyte [distwidth] in red blood cells by automated count 12.3 % low: 11.3%h igh: 14.8% RDW-C V 12.3 11.3 - 14.8 % 09/12 12:44 PM [facility] Not Available Not Available 09/15/2024 09:56:55 09/13/1909/12/2024 CBC W Auto Diffe renti al panel - Blood platelets [#/volume] in blood by automated count 245 text: 150 - 420 x10e9/ L Plate let Count 245 150 - 420 x10E9 /L 09/12 12:44 PM [facility] Not Available Not Available 09/15/2024 09:56:55 09/13/19 25 09/12/2024 CBC W Auto Diffe renti al panel - Blood platelet [entitic mean volume] in blood by automated count 11.6 fL low: 7.8fLh igh: 11.4fL high MPV 11.6 (H) 7.8 - 11.4 fL 09/12 12:44 PM CDT [facility] Not Available Not Available 09/15/2024 09:56:55 09/13/19 25 09/12/2024 CBC W Auto Diffe renti al panel - Blood neutrophils/ leukocytes in blood by automated count 76.7 % low: 41%hig h: 74% high Neutr ophil % 76.7 (H) 41.0 - 74.0 % 09/12 12:44 PM CDT [facility] Not Available Not Available 09/15/2024 09:56:55 09/13/19 25 09/12/2024 CBC W Auto Diffe renti al panel - Blood lymphocytes/ leukocytes in blood by automated count 17.6 % low: 17%hig h: 47% Lymph ocyte % 17.6 17.0 - 47.0 % 09/12 12:44 PM CDT [facility] Not Available Not Available 09/15/2024 09:56:55 09/13/19 25 09/12/2024 CBC W Auto Diffe renti al panel - Blood monocytes/le ukocytes in blood by automated count 3.9 % low: 3%high : 11% Monoc yte % 3.9 3.0 - 11.0 % 09/12 12:44 PM CDT [facility] Not Available Not Available 09/15/2024 09:56:55 09/13/19 25 09/12/2024 CBC W Auto Diffe renti al panel - Blood eosinophils/ leukocytes in blood by automated count 1.1 % low: 0%high : 7% Eosin ophil % 1.1 0.0 - 7.0 % 09/12 12:44 PM CDT [facility] Not Available Not Available 09/15/2024 09:56:55 09/13/19 25 09/12/2024 CBC W Auto Diffe renti al panel - Blood basophils/le ukocytes in blood by automated count 0.3 % low: 0%high : 1.6% Basop hil % 0.3 0.0 - 1.6 % 09/12 12:44 PM CDT [facility] Not Available Not Available 09/15/2024 09:56:55 09/13/1909/12/2024 CBC W Auto Diffe renti al panel - Blood immature granulocytes /leukocytes in blood by automated count 0.4 % low: 0%high : 1% Immat ure Granu locyt es % 0.4 0.0 - 1.0 % 09/12 12:44 PM CDT [facility] Not Available Not Available 09/15/2024 09:56:55 09/13/19 25 09/12/2024 CBC W Auto Diffe renti al panel - Blood neutrophils [#/volume] in blood by automated count 7.14 text: 1.60 - 7.50 x10e9/ L Neutr ophil Absol [place] 7.14 1.60 - 7.50 x10E9 /L 09/12 12:44 PM CDT [facility] Not Available Not Available 09/15/2024 09:56:55 09/13/19 25 09/12/2024 CBC W Auto Diffe renti al panel - Blood lymphocytes [#/volume] in blood by automated count 1.64 text: 1.00 - 4.40 x10e9/ L Lymph ocyte Absol [place] 1.64 1.00 - 4.40 x10E9 /L 09/12 12:44 PM CDT [facility] Not Available Not Available 09/15/2024 09:56:55 09/13/19 25 09/12/2024 CBC W Auto Diffe renti al panel - Blood monocytes [#/volume] in blood by automated count 0.36 text: 0.15 - 1.00 x10e9/ L Monoc yte Absol [place] 0.36 0.15 - 1.00 x10E9 /L 09/12 12:44 PM CDT [facility] Not Available Not Available 09/15/2024 09:56:55 09/13/19 25 09/12/2024 CBC W Auto Diffe renti al panel - Blood eosinophils [#/volume] in blood 0.1 text: 0.00 - 0.60 x10e9/ L Eosin ophil Absol [place] 0.10 0.00 - 0.60 x10E9 /L 09/12 12:44 PM CDT [facility] Not Available Not Available 09/15/2024 09:56:55 09/13/19 25 09/12/2024 CBC W Auto Diffe renti al panel - Blood basophils [#/volume] in blood by automated count 0.03 text: 0.00 - 0.13 x10e9/ L Basop hil Absol [place] 0.03 0.00 - 0.13 x10E9 /L 09/12 12:44 PM CDT [facility] Not Available Not Available 09/15/2024 09:56:55 09/13/1909/12/2024 CBC W Auto Diffe renti al panel - Blood interpretati on and review of laboratory results Abnorm al Not Available Not Available 09:56:55 09/13/19 25 09/12/2024 Basic metab olic 2000 panel - Serum or Plasm a urea nitrogen [mass/volume ] in serum or plasma 12 mg/dL low: 7mg/dL high: 26mg/d L BUN 12 7 - 26 mg/dL 09/12 1:19 PM [facility] Not Available Not Available 09/15/2024 09:56:55 09/13/1909/12/2024 Basic metab olic 1999 panel - Serum or Plasm a creatinine [mass/volume ] in serum or plasma 0.74 mg/dL low: 0.71mg /dLhig h: 1.16mg /dL Creat inine 0.74 0.71 - 1.16 mg/dL 09/12 1:19 PM CDT [facility] Not Available Not Available 09/15/2024 09:56:55 09/13/19 25 09/12/2024 Basic metab olic 2000 panel - Serum or Plasm a sodium [moles/volum e] in serum or plasma 132 mmol/ L low: 136mmo l/Lhig h: 145mmo l/L low Sodiu m 132 (L) 136 - 145 mmol/ L 09/12 1:19 PM CDT [facility] Not Available Not Available 09/15/2024 09:56:55 09/13/1909/12/2024 Basic metab olic 1999 panel - Serum or Plasm a potassium [moles/volum e] in serum or plasma 4.4 mmol/ L low: 3.5mmo l/Lhig h: 4.5mmo l/L Potas sium 4.4 3.5 - 4.5 mmol/ L 09/12 1:19 PM CDT [facility] Not Available Not Available 09/15/2024 09:56:55 09/13/1909/12/2024 Basic metab olic 1999 panel - Serum or Plasm a chloride [moles/volum e] in serum or plasma 101 mmol/ L low: 98mmol /Lhigh : 107mmo l/L Chlor ministerio 101 98 - 107 mmol/ L 09/12 1:19 PM CDT [facility] Not Available Not Available 09/15/2024 09:56:55 09/13/1909/12/2024 Basic metab olic 1999 panel - Serum or Plasm a carbon dioxide, total [moles/volum e] in serum or plasma 17 mmol/ L low: 22mmol /Lhigh : 29mmol /L low CO2 17 (L) 22 - 29 mmol/ L 09/12 1:19 PM CDT [facility] Not Available Not Available 09/15/2024 09:56:55 09/13/1909/12/2024 Basic metab olic 1999 panel - Serum or Plasm a glucose [mass/volume ] in serum or plasma 559 mg/dL low: 70mg/d Lhigh: 99mg/d L high Gluco se 559 (H) 70 - 99 mg/dL 09/12 1:19 PM CDT [facility] Not Available Not Available 09/15/2024 09:56:55 09/13/19 25 09/12/2024 Basic metab olic 1999 panel - Serum or Plasm a calcium [moles/volum e] in serum or plasma 9.1 mg/dL low: 8.4mg/ dLhigh : 10.2mg /dL Calci um 9.1 8.4 - 10.2 mg/dL 09/12 1:19 PM CDT [facility] Not Available Not Available 09/15/2024 09:56:55 09/13/19 25 09/12/2024 Basic metab olic 2000 panel - Serum or Plasm a anion gap 14 low: 6high: 16 Anion Gap 14 6 - 16 09/12 1:19 PM CDT [facility] Not Available Not Available 09/15/2024 09:56:55 09/13/19 25 09/12/2024 Basic metab olic 2000 panel - Serum or Plasm a urea nitrogen/cre atinine [mass ratio] in serum or plasma 16 low: 7high: 23 BUN/C reati nine Ratio 16 7 - 23 09/12 1:19 PM CDT [facility] Not Available Not Available 09/15/2024 09:56:55 09/13/19 25 09/12/2024 Basic metab olic 2000 panel - Serum or Plasm a osmolality calculated 299 text: 275 - 295 mOsm/k g high Osmol ality Calcu lated 299 (H) 275 - 295 mOsm/ kg 09/12 1:19 PM CDT [facility] Not Available Not Available 09/15/2024 09:56:55 09/13/1909/12/2024 Basic metab olic 2000 panel - Serum or Plasm a glomerular filtration rate [volume rate/area] in serum, plasma or blood by creatinine-b ased formula (CKD-epi 2020)/1.73 sq M text: >=90 mL/min /1.73 m2 eGFR by CKD-E PI >90 >=90 mL/mi n/1.7 3 m2 09/12 1:19 PM CDT [facility] Not Available Not Available 09/15/2024 09:56:55 09/13/19 25 09/12/2024 Basic metab olic 2000 panel - Serum or Plasm a interpretati on and review of laboratory results Abnorm al Not Available Not Available 09:56:55 09/13/19 25 09/12/2024 Magne sium [Mass /volu me] in Serum or Plasm a magnesium [mass/volume ] in serum or plasma 1.9 mg/dL low: 1.6mg/ dLhigh : 2.6mg/ dL Magne sium 1.9 1.6 - 2.6 mg/dL 09/12 1:19 PM CDT [facility] Not Available Not Available 09/15/2024 09:56:55 09/13/19 25 09/12/2024 Magne sium [Mass /volu me] in Serum or Plasm a interpretati on and review of laboratory results Normal Not Available Not Available 09/02 09:56:55 06/14/19 24 06/14/2023 CT, brain , w/o contr ast No observ ation record ed. [address], [place], [address], 06/15/2023 17:52:32 06/14/19 24 06/14/2023 XR, chest , 2 view No observ ation record ed. [address], [place], [address], 06/15/2023 17:51:46 06/22/19 24 06/14/2023 XR, chest , 2 view No observ ation record ed. [address], [place], [address], 06/22/2023 13:25:27 02/28/20 24 02/27/2024 XR, kidne y + urete r + bladd er No observ ation record ed. Not Available 2023 14:55:10 Result Notes None recorded. Problems Name Problem SNOMED Code Status Onset Date Resolution Date Notes Provider Name and Address Organization Details Recorded Time Cavitation of lung 825236901 Active [place] ji, [place] - [facility] 5 17:14:21 Pneumonia 270759126 [place] ji[place] - [facility] 4 16:42:35 Upper respiratory infection 62188150 Active Diana ji, [place] - [facility] 4 16:42:37 Syncope 993080526 Active 2019 SASKIA WHITFIELD NP Attn: Deniseliyah clinton,[address] [facility], [place], [place], [address] [place] [address] 2, [place] - [facility] 0 14:44:26 Chronic obstructive pulmonary disease 12802851 Active SASKIA WHITFIELD NP Attn: Albert mary beth,[address] [facility], [place], [place], [address] [place] [address] 2, [place] - [facility] 0 14:44:45 Essential hypertension 64448061 Active 2019 SASKIA WHITFIELD NP Attn: Albert mary beth,[address] [facility], [place], [place], [address] [place] [address] 2, [facility] - [facility] 0 14:44:54 Pulmonary cryptococcosis 95430028 Active 2019 SASKIA WHITFIELD NP Attn: Albert mary beth,[address] [facility], [place], [place], [address] [place] [address] 2, [facility] - S[facility] 0 14:46:22 Smoker 64472633 Active Diana ji, [facility] 5 17:14:21 Uncontrolled type 2 diabetes mellitus 737164124 Active Diana ji, [place] - [facility] 5 17:14:21 Problem Notes None recorded. Procedures Surgical History Date Name Laterality Status Provider Name and Address Organization Details Recorded Time 08/27/19 24 percutaneous transluminal angioplasty of coronary artery using imaging guidance with contrast completed Fide Bass MA [facility] 08/28/2023 09:58:20 08/27/19 24 catheterization of left heart completed Fide Bass MA [facility] 08/28/2023 09:59:34 02/01/20 23 assessment of stress level completed MARLI Hyatt [facility] 02/02/2023 10:51:40 09/15/19 23 open colonoscopy completed MARLI Us [facility] 09/14/2022 18:10:50 02/16/20 22 colonoscopy completed Miriam Valenzuela [facility] 04/17/2024 09:54:46 06/04/19 12 Hernia Repair completed Amelia Gillespie MA [facility] 04/28/2014 16:21:57 cholecystectomy completed Fide Bass MA [facility] 05/24/2022 11:44:54 Imaging Results None recorded. Procedure Notes None recorded. Medical Equipment None Reported. Allergies No known drug allergies Medications Name Sig Start Date Stop Date Status Note LastModified by Organization Details LastModified Time cyclobenz aprine 10 mg tablet 06/09 completed Not Available Not Available Not Available amoxicill in 500 mg capsule TAKE 1 TABLET 3 TIMES A DAY BY ORAL ROUTE FOR 10 DAYS. 09/30 completed Not Available Not Available Not Available atorvasta tin 40 mg tablet TAKE 1 TABLET EVERY DAY BY ORAL ROUTE FOR 90 DAYS. 04/09 completed increase d to 80 mg Not Available Not Available Not Available promethaz ine-DM 6.25 mg-15 mg/5 mL oral syrup Take 5 mL 3 times a day by oral route as needed. 12/06 completed Not Available Not Available Not Available fluticaso ne 250 mcg-salme terol 50 mcg/dose blistr powdr for inhalatio n 10/14 completed Not Available Not Available Not Available atorvasta tin 80 mg tablet TAKE 1 TABLET (80 MG TOTAL) BY MOUTH DAILY 2024 active Not Available Not Available Not Avai lable nystatin 100,000 unit/mL oral suspensio n TAKE 5 ML (500,000 UNITS TOTAL) BY MOUTH 4 (FOUR) TIMES A DAY 10/14 completed Not Available Not Available Not Available carvedilo l 6.25 mg tablet active Not Available Not Available Not Available prednison e 10 mg tablet 07/01 completed Not Available Not Available Not Available nitrofura ntoin macrocrys trinh 50 mg capsule 04/09 completed Not Available Not Available Not Available doxycycli ne hyclate 100 mg capsule active Not Available Not Available Not Available nicotine 14 mg/24 hr daily transderm al patch 07/01 completed Not Available Not Available Not Available ipratropi um 0.5 mg-albute rol 3 mg (2.5 mg base)/3 mL nebulizat ion soln active Not Available Not Available Not Available clindamyc in HCl 300 mg capsule 05/24 completed Not Available Not Available Not Available albuterol sulfate 2.5 mg/3 mL (0.083 %) solution for nebulizat ion USE ONE (1) VIAL BY NEBULIZA TION THREE TIMES DAILY FOR 15 DAYS. active Not Available Not Available No t Available trazodone 50 mg tablet 07/01 completed Not Available Not Available Not Available atorvasta tin 10 mg tablet 06/02 completed Not Available Not Available Not Available azithromy alex 250 mg tablet TAKE 2 TABLETS BY ORAL ROUTE ONCE DAILY FOR 1 DAY THEN 1 TABLET BY ORAL ROUTE ONCE DAILY FOR 4 DAYS 07/25 completed Not Available Not Available Not Available ranitidin e 300 mg tablet 07/01 completed Not Available Not Available Not Available hydrocodo ne 5 mg-acetam inophen 325 mg tablet TAKE 1 TABLET BY MOUTH EVERY 6 HOURS NEEDED FOR PAIN 05/30 completed Not Available Not Available Not Available diltiazem CD 240 mg capsule,e xtended release 24 hr TAKE ONE (1) CAPSULE BY MOUTH ONCE DAILY 07/04 completed Not Available Not Available Not Available fluconazo le 200 mg tablet 05/30 completed Not Available Not Available Not Available meloxicam 15 mg tablet 07/01 completed Not Available Not Available Not Available sucralfat e 1 gram tablet TAKE ONE (1) TABLET BY MOUTH FOUR (4) TIMES DAILY 02/02 completed Not Available Not Available Not Available lisinopri l 20 mg tablet TAKE 1 TABLET BY MOUTH EVERY DAY 07/01 completed Not Available Not Available Not Available ondansetr on HCl 4 mg tablet 02/02 completed Not Available Not Available Not Available famotidin e 40 mg tablet 02/02 completed Not Available Not Available Not Available prednison e 20 mg tablet TAKE 4 TABS DAILY X3DAYS THEN 3 TAB X3DAYS THEN 2 TAB X3DAYS THEN 1 TAB X3DAYS THEN 1/2 TAB X3DAYS 09/30 completed Not Available Not Available Not Available isosorbid e mononitra te ER 30 mg tablet,ex tended release 24 hr TAKE 1 TABLET BY MOUTH ONCE DAILY FOR 30 DAYSP LEASE KEEP UPCOMING APPOINTM ENT 02/02 completed Not Available Not Available Not Available Lantus U-100 Insulin 100 unit/mL subcutane ous solution INJECT 40 UNITS UNDER THE SKIN EVERY DAY 07/01 completed Not Available Not Available Not Available topiramat e 25 mg tablet 05/30 completed Not Available Not Available Not Available amlodipin e 2.5 mg tablet 10/20 completed Not Available Not Available Not Available ciproflox acin 500 mg tablet active Not Available Not Available No t Available sulfameth oxazole 800 mg-trimet hoprim 160 mg tablet TAKE 2 TABLETS BY MOUTH 2 TIMES DAILY FOR 10 DAYS. 06/09 completed Not Available Not Available Not Available hydrocodo ne 10 mg-acetam inophen 325 mg tablet 10/14 completed Not Available Not Available Not Available omeprazol e 40 mg capsule,d elayed release TAKE ONE (1) CAPSULE( S) EVERY DAY BY ORAL ROUTE FOR 30 DAYS. 05/30 completed Not Available Not Available Not Available aspirin 81 mg tablet,de layed release 04/09 completed Not Available Not Available Not Available doxycycli ne monohydra te 100 mg tablet 07/04 completed Not Available Not Available Not Available tramadol 50 mg tablet active Not Available Not Available Not Available amoxicill in 500 mg tablet Take 1 tablet 3 times a day by oral route for 5 days. 07/04 completed Not Available Not Available Not Available ketorolac 10 mg tablet 07/01 completed Not Available Not Available Not Available meloxicam 7.5 mg tablet TAKE ONE (1) TABLET EVERY DAY BY ORAL ROUTE FOR 30 DAYS. 07/04 completed Not Available Not Available Not Available oxycodone -acetamin ophen 5 mg-325 mg tablet 05/30 completed Not Available Not Available Not Available famotidin e 20 mg tablet TAKE 1 TABLET BY MOUTH TWICE DAILY active Not Available Not Available No t Available tamsulosi n 0.4 mg capsule TAKE 1 CAPSULE (0.4 MG TOTAL) BY MOUTH DAILY WITH DINNER 06/09 completed Not Available Not Available Not Available Humalog U-100 Insulin 100 unit/mL subcutane ous solution active Not Available Not Available Not Available OneTouch Ultra Test strips active Not Available Not Available Not Available baclofen 10 mg tablet TAKE 1 TABLET BY MOUTH THREE TIMES DAILY DIRECTED TO RELAX MUSCLES 12/19 completed Not Available Not Available Not Available benzonata te 100 mg capsule TAKE 1 CAPSULE 3 TIMES A DAY BY MOUTH NEEDED FOR 10 DAYS. 08/18 completed Not Available Not Available Not Available doxycycli ne monohydra te 100 mg capsule Take 1 capsule twice a day by oral route for 10 days. 09/30 completed Not Available Not Available Not Available bisacodyl 10 mg rectal supposito ry active Not Available Not Available Not Available pantopraz ole 40 mg tablet,de layed release TAKE 1 TABLET EVERY DAY BY ORAL ROUTE. 2024 active Not Available Not Available Not Avai lable erythromy alex 5 mg/gram (0.5 %) eye ointment 10/20 completed Not Available Not Available Not Available metformin 1,000 mg tablet TAKE 1 TABLET TWICE a DAY BY ORAL ROUTE WITH MEALS FOR 90 DAYS. active Not Available Not Available No t Available lisinopri l 10 mg tablet 08/18 completed Not Available Not Available Not Available nicotine 21 mg/24 hr daily transderm al patch 07/01 completed Not Available Not Available Not Available gabapenti n 300 mg capsule TAKE ONE (1) CAPSULE BY MOUTH THREE (3) TIMES DAILY 05/30 completed Not Available Not Available Not Available omeprazol e 20 mg capsule,d elayed release TAKE 1 CAPSULE BY MOUTH DAILY. 10/14 completed DUplicat e Not Available Not Available Not Available aspirin 81 mg chewable tablet active Not Available Not Available Not Available diclofena c sodium 75 mg tablet,de layed release active Not Available Not Available Not Available monteluka st 10 mg tablet TAKE 1 TAB BY MOUTH EVERY EVENING. 01/18 completed Not Available Not Available Not Available bisacodyl 5 mg tablet,de layed release active Not Available Not Available Not Available alcohol swabs TEST TWO TIMES DAILY active Not Available Not Available No t Available gabapenti n 100 mg capsule active Not Available Not Available Not Available polyethyl erick glycol 3350 17 gram/dose oral powder 05/30 completed Not Available Not Available Not Available levofloxa alex 500 mg tablet 10/20 completed Not Available Not Available Not Available insulin syringe U-100 with needle 1 mL 30 gauge x 7/16 active Not Available Not Available Not Available methylpre dnisolone 4 mg tablets in a dose pack FOLLOW PACKAGE DIRECTIO NS 12/19 completed Not Available Not Available Not Available albuterol sulfate HFA 90 mcg/actua tion aerosol inhaler INHALE TWO (2) PUFFS BY MOUTH EVERY FOUR (4) HOURS NEEDED FOR SHORTNES S OF BREATH OR WHEEZING 2024 active Not Available Not Available Not Avai lable ondansetr on 4 mg disintegr ating tablet DISSOLVE 1 TABLET ON THE TONGUE EVERY 4 HOURS NEEDED FOR NAUSEA OR VOMITING 05/30 completed Not Available Not Available Not Available fluticaso ne propionat e 50 mcg/actua tion nasal spray,nathan pension ONE (1) TO TWO (2) SPRAYS EACH NOSTRIL DAILY FOR NASAL CONGESTI ON AND ALLERGIE S. 02/02 completed Not Available Not Available Not Available glipizide 5 mg tablet TAKE 1 TABLET TWICE a DAY BY ORAL ROUTE WITH MEALS FOR 90 DAYS. active Not Available Not Available No t Available naproxen 500 mg tablet Take 1 tablet twice a day by oral route for 7 days. 04/09 completed Not Available Not Available Not Available metoclopr amide 10 mg tablet TAKE 1 TABLET BY MOUTH 4 TIMES DAILY NEEDED FOR NAUSEA - 1ST LINE. 04/09 completed Not Available Not Available Not Available amoxicill in 875 mg-potass ium clavulana te 125 mg tablet TAKE 1 TABLET BY MOUTH EVERY 12 HOURS FOR 10 DAYS 09/30 completed Not Available Not Available Not Available nicotine 7 mg/24 hr daily transderm al patch 12/19 completed Not Available Not Available Not Available magnesium 250 mg (as magnesium oxide) tablet Take 1 tablet every day by oral route. 07/04 completed Not Available Not Available Not Available oxycodone 5 mg tablet 10/20 completed Not Available Not Available Not Available OneTouch UltraSoft Lancets active Not Available Not Available Not Available BD Ultra-Fin e Mini Pen Needle 31 gauge x 08/17 active Not Available Not Available Not Available Apidra U-100 Insulin 100 unit/mL subcutane ous solution INJECT 11 UNITS UNDER THE SKIN BEFORE MEALS 07/01 completed Not Available Not Available Not Available Symbicort 160 mcg-4.5 mcg/actua tion HFA aerosol inhaler INHALE TWO (2) PUFFS BY MOUTH TWO (2) TIMES DAILY active Not Available Not Available No t Available Advocate Lancing Device USE DIRECTED active Not Available Not Available No t Available Lantus Solostar U-100 Insulin 100 unit/mL (3 mL) subcutane ous pen Inject 30 units every day by subcutan eous route. active Not Available Not Available No t Available Humalog KwikPen (U-100) Insulin 100 unit/mL subcutane ous 05/17 completed Not Available Not Available Not Available Tradjenta 5 mg tablet TAKE ONE TABLET BY MOUTH DAILY PT. NEEDS APPOINTM ENT BEFORE NEXT REFILL 08/18 completed Not Available Not Available Not Available lidocaine 5 % topical ointment APPLY TO AFFECTED AREA(S) BY TOPICAL ROUTE 1-4 TIMES DAILY NEEDED active Not Available Not Available No t Available Advocate Syringes 0.5 mL 31 gauge x 5/16 active Not Available Not Available Not Available TRUEplus Pen Needle 31 gauge x 5/16 active Not Available Not Available Not Available fluticaso ne 113 mcg-salme terol 14 mcg/actua tion breath activated powdr 10/14 completed duplicat e Not Available Not Available Not Available OneTouch Ultra Blue Test Strip TEST TWO TIMES DAILY active Not Available Not Available No t Available OneTouch Ultra2 Meter USE DIRECTED active Not Available Not Available No t Available COVID-19 test specimen collectio n DIRECTED 08/18 completed Not Available Not Available Not Available OneTouch UltraSoft 2 Lancet 30 gauge TEST TWO TIMES DAILY active Not Available Not Available No t Available Vitals Date Recorded Body height Body mass index (BMI) Body weight Oxygen saturation Oxygen saturation in Arterial blood by Pulse oximetry Heart rate Respiratory rate Body temperature Systolic And Diastolic Provider Name and Address Organization Details Last Updated DateTime 5 175.26 cm 27.6 kg/m2 03230.1 2 g 97 % 97 % 87 /min 16 /min 96.9 [degF] 138/80 mm[Hg] Fide Bass [place] [facility] 5 11:00:09 Date Recorded Body height Body mass index (BMI) Body weight Body temperature Oxygen saturation Oxygen saturation in Arterial blood by Pulse oximetry Heart rate Respiratory rate Systolic And Diastolic Provider Name and Address Organization Details Last Updated DateTime 4 175.26 cm 28.8 kg/m2 27685.5 6 g 96.9 [degF] 99 % 99 % 88 /min 16 /min 137/96 mm[Hg] Fide Bass MA [facility] 4 10:27:49 Date Recorded Body height Body mass index (BMI) Body weight Respiratory rate Body temperature Oxygen saturation Oxygen saturation in Arterial blood by Pulse oximetry Heart rate Systolic And Diastolic Provider Name and Address Organization Details Last Updated DateTime 4 175.26 cm 29.2 kg/m2 85493.5 g 16 /min 98.3 [degF] 97 % 97 % 94 /min 130/86 mm[Hg] Miriam Valenzuela MA [facility] 4 12:28:06 Date Recorded Oxygen saturation Oxygen saturation in Arterial blood by Pulse oximetry Provider Name and Address Organization Details Last Updated DateTime 02/02/2023 94 % 94 % Sonu Rodriguez MD Attn: Accounting,[address] [place], [address], [facility] 02/02/2023 13:24:25 Date Recorded Body height Body mass index (BMI) Body weight Body temperature Respiratory rate Oxygen saturation Oxygen saturation in Arterial blood by Pulse oximetry Heart rate Systolic And Diastolic Provider Name and Address Organization Details Last Updated DateTime 3 175.26 cm 28.8 kg/m2 17729.5 1 g 97.3 [degF] 15 /min 90 % 90 % 71 /min 118/80 mm[Hg] Kita Seo MA [facility] 3 10:44:09 Date Recorded Body height Body mass index (BMI) Body weight Oxygen saturation Oxygen saturation in Arterial blood by Pulse oximetry Heart rate Respiratory rate Body temperature Systolic And Diastolic Provider Name and Address Organization Details Last Updated DateTime 4 175.26 cm 26.5 kg/m2 57566.7 3 g 98 % 98 % 104 /min 16 /min 97.1 [degF] 125/80 mm[Hg] Fide Bass MA [facility] 4 11:51:54 Social History Question Answer Notes LastModified by Organizat ion Details LastModified Time Tobacco Smoking Status Former Smoker quit on 01/15/22 MARLI Orr, [facility] 01/18/2022 11:43:34 Do You Have An Advance Directive? No Information not available 06/01/2020 How Many Years Have You Consumed Alcohol? 26 Information not available 10/14/2020 Are You Blind Or Do You Have Difficulty Seeing? Yes Glases Information not available 10/14/2020 What Is Your Level Of Caffeine Consumption? Moderate 1cup Coffee Per Day Pt. Stopped Drinking In Apr 2024 Information not available 06/05/2024 How Much Tobacco Do You Chew? None Information not available 06/01/2020 In The 14 Days Before Symptom Onset, Have You Had Close Contact With A Laboratory-confir med COVID-19 While That Case Was Ill? No Information not available 06/01/2020 In The 14 Days Before Symptom Onset, Have You Had Close Contact With A Person Who Is Under Investigation For COVID-19 While That Person Was Ill? No Information not available 06/01/2020 Have You Been To An Area Known To Be High Risk For COVID-19? No Information not available 06/01/2020 Are You Deaf Or Do You Have Serious Difficulty Hearing? Yes [place] Information not available 10/14/2020 What Type Of Diet Are You Following? REGULAR [email or web address] Information not available 04/28/2014 Which Illicit Or Recreational Drugs Have You Used? Denies Information not available 02/11/2020 Education 9 Information no t available 06/01/2020 Swimming/diving Yes Informati on not available 06/01/2020 Are There Any Guns Present In Your Home? No Information not available 04/28/2014 Hard Of Hearing Or Deaf In One Or Both Ears? 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 No Information no t available 02/11/2020 Live Alone Or With Others? With Others [email or web address] Information not available 04/28/2014 Do You Have A High School Diploma Or Higher Education? No 9th Grade Information not available 10/14/2020 Do You Sometimes Have To Miss Your Medical Appointments Due To Difficult Getting Transportation? No Information not available 10/14/2020 Do You Feel Unfairly Treated Due To Things Such As Race, Age, Gender, Disability Or Some Other Reason? No Information not available 10/14/2020 Do You Feel Physically And Emotionally Safe While Living At Home? Yes Information not available 10/14/2020 Do You Feel Physically And Emotionally Safe In Your Neighborhood Or Other Public Places? Yes Information not available 10/14/2020 Marital Status Informatio n not available 06/01/2020 What Was The Date Of Your Most Recent Tobacco Screening? 06/05/2024 Information not available 06/05/2024 How Many Children Do You Have? 1 [email or web address] Information not available 04/28/2014 What Is Your Current Pack Years? [email or web address] years Information not available 12/19/2021 Performs Monthly Self-breast Exam? No Information no t available 06/01/2020 Do You Use Protection During Sex? Always Information not available 06/01/2020 What Is Your Relationship Status? Other Information not available 10/14/2020 Do You Use Your Seat Belt Or Car Seat Routinely? Yes Information not available 10/14/2020 Seat Belts Used Routinely Yes [email or web address] Information not available 04/28/2014 Are You Sexually Active? Yes Information not available 06/01/2020 Smoke Alarm In Home Yes Information not available 06/01/2020 Do You Have Smoke And Carbon Monoxide Detectors In Your Home? Yes Information not available 10/14/2020 At What Age Did You Start Smoking Tobacco? 17 [email or web address] Information not available 04/28/2014 Are You Passively Exposed To Smoke? Yes Information no t available 10/14/2020 How Much Tobacco Do You Smoke? No Information not available 01/18/2022 General Stress Level Medium Information not available 02/11/2020 Do You Use Sunscreen Routinely? No Information not available 06/01/2020 Has Tobacco Cessation Counseling Been Provided? Yes Information not available 10/14/2020 On What Date Was Tobacco Cessation Counseling Provided? 06/05/2024 Information not available 06/05/2024 How Many Years Have You Smoked Tobacco? 34 Information not available 01/18/2022 How Many Years Have You Used E-cigarettes Or Vape? 0.1 Information not available 01/18/2022 Sex: Male Functional Status Question Answer Note LastModified by Organizat ion Details LastModified Time Do you use any illicit or recreational drugs? No Information not available 10/14/2020 Do you or have you ever used any other forms of tobacco or nicotine? No Information not available 10/14/2020 What is your level of alcohol consumption? Occasional very rarely Information not available 10/14/2020 Do you or have you ever used smokeless tobacco? Never used smokeless tobacco Information not available 02/11/2020 Are you currently employed? No Information not available 02/11/2020 Are you able to care for yourself? 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 Current user of electronic cigarettes Started when he quit smoking on 01/15/22 Information not available 01/18/2022 What is your exercise level? None Information not available 02/11/2020 Mental Status Question Answer Note LastModified by Organization D etails LastModified Time Do you feel stressed (tense, restless, nervous, or anxious, or unable to sleep at night)? [id number] Information not available 10/14/2020 Family History Relationship Description Onset Age of this Age Resolved Age Notes LastModified by Organization Details LastModified Time Mother Diabetes mellitus [email or web address] Not available 04/28 16:23:33 Mother Hypertensive disorder [email or web address] Not available 04/28 16:23:33 Mother Heart disease [email or web address] Not available 04/28 16:23:33 Mother Mar 2020? [email or web address] Not available 06/01/2020 14:16:20 Father Diabetes mellitus [email or web address] Not available 04/28 16:23:33 Father Hypertensive disorder [email or web address] Not available 04/28 16:23:33 Daughter Hypertensive disorder [email or web address] Not available 2019 14:17:06 Unspecified Relation a year ago in 2019 [email or web address] Not available 06/01/2020 14:16:20 Unspecified Relation Ex-wif e Apr 2020 [email or web address] Not available 06/01/2020 14:16:20 Notes:no changes reported , 12/19/21, 01/18/22, 05/24/22, 12/04/22, 01/25/23, 10/01/23, 04/09/24, 06/05/24 Medical History Condition Response High Blood Pressure Y Diabetes Y Immunizations Vaccine Type Date Status Note Provider Nam e and Address Organization Details Recorded Time COVID-19, mRNA, LNP-S, PF, 30 mcg/0.3 mL dose 1 completed MARLI Orr, [place] [facility] 04/08/2024 17:29:39 COVID-19, mRNA, LNP-S, PF, 30 mcg/0.3 mL dose 1 [place] [facility] 04/08/2024 17:29:39 pneumococcal polysaccharide PPV23 8 [place] MAR[place] [facility] 04/08/2024 17:29:39 Tdap 0 [place] [facility] 04/09/2024 11:54:37 Influenza, split virus, trivalent, preservative 6 [place] [facility] 04/08/2024 17:29:39 Influenza, split virus, quadrivalent, PF 8 [place] MAR[place] [facility] 04/08/2024 17:29:39 Influenza, split virus, quadrivalent, PF 8 [place] MAR[place] [facility] 04/08/2024 17:29:39 COVID-19, mRNA, LNP-S, PF, 30 mcg/0.3 mL dose, pat-sucrose 2 completed MARLI Orr, [place] - [facility] 04/09/2024 11:54:18 Past Encounters Encounter ID Performer Location Encounter Start Date Encounter Closed Date Diagnosis/Indication Diagnosis SNOMED-CT Code Diagnosis ICD10 Code Diagnosis Note [id number] Diana Cortes MD [facility] ([facility]) [address] [place] [address] 04/28/2014 16:01:54 04/28/2014 16:54:13 Cavitation of lung 586638205 Pneumonia [id number] [id number] Diana Cortes MD [facility] ([facility]) [address] [place] [address] 10/20/2014 15:52:23 10/20/2014 17:41:32 Cavitation of lung 990235360 Smoker 97245105 Uncontroll ed type 2 diabetes mellitus 355340934 [id number] Christina Guadalupe MD [facility] [address] [place] [address] 02/11/2020 14:13:10 02/12/2020 05:52:04 Syncope 219371411 R55 - hospital f/u appointmen t.- Patient scheduled to see MD due to complexity of care [id number] MD Michelle Aguayo 14 IM [address] [facility] [address] [place] [address] 06/01/2020 13:54:58 06/03/2020 10:29:59 Smoker 19593373 F17.200 History of malignant neoplasm of bladder 700746015 Z85.51 Chronic ob structive pulmonary disease 72733917 J44.9 Diabetes mellitus 094927 09 E11.9 Low back pain 730310659 M54.5 Acute bronchitis 6094543 2 J20.9 [id number] MD Michelle Aguayo 14 IM 4 [facility] [place] [address] 07/01/2020 14:13:57 07/02/2020 14:30:44 Type 2 diabetes mellitus 74226552 E11.9 HgbA!c is higher today at 11.9 compared to 11.1 on 06-01-2020 --pt states that he is taking metformin daily as prescribed Acute bronchitis 5322633 2 J20.9 Smoker 25905295 F17.200 Osteoarthritis 537821142 M19.90 Gastroesop hageal reflux disease 584557313 K21.00 Drug seeking behavior 44 8734300 Z76.5 [id number] MD Michelle Aguayo 14 IM [address] [facility] [place] [address] 10/14/2020 10:19:37 10/18/2020 09:37:43 Uncontrolled type 2 diabetes mellitus 807668731 E11.65 [id number] MD Michelle Aguayo 14 IM [address] [facility] [place] [address] 08/18/2021 16:15:54 08/23/2021 12:29:29 Gastroesophageal reflux disease 563160006 K21.00 Type 2 anoop betes mellitus 51659906 E11.9 [id number] MD Michelle Aguayo 14 IM [address] [facility] [place] [address] 12/19/2021 10:05:29 12/20/2021 13:51:53 Uncontrolled type 2 diabetes mellitus 360443683 E11.65 Gastroesop hageal reflux disease without esophagitis 129311239 K21.9 Hyperlipidemia 70008643 E78.5 Type 2 anoop betes mellitus 84858565 E11.9 Smoker 78498087 F17.200 1 ppd Administra tion of SARS-CoV-2 antigen vaccine 065840999 Z23 Current drinker 964306 Z72.89 Chronic ob structive pulmonary disease 83980330 J44.9 Venereal d isease screening 048239985 Z11.3 Screening for malignant neoplasm of prostate 989808693 Z12.5 grandfathe r had prostate CA Screening for malignant neoplasm of colon 144954410 Z12.11 pt is at average risk Gastroesop hageal reflux disease 226348469 K21.00 [id number] MD Michelle Aguayo 14 IM [address] [facility] [place] [address] 01/18/2022 11:15:07 01/20/2022 14:20:33 Overweight 959510337 E66.3 Gastroesop hageal reflux disease 121802584 K21.00 Type 2 anoop betes mellitus 17372350 E11.9 Constipation 29552154 K5 9.00 [id number] MD Michelle Aguayo 14 IM [address] [facility] [place] [address] 05/24/2022 10:56:18 05/30/2022 13:51:06 Type 2 diabetes mellitus 75194961 E11.9 Metformin and glipizide are rx'd for pt--it is not clear that pt is taking both as prescribed . Costal chondritis 806618 04 M94.0 Cough 48875631 R05.9 [id number] MD Michelle Aguayo 14 [address] [facility] [place] [address] 12/06/2022 11:55:33 12/11/2022 11:46:49 Overweight 380537495 E66.3 Smoker 12498712 F17.200 pt. currently vapes does not smoke cigarettes Uncontroll ed type 2 diabetes mellitus 904158271 E11.65 Abstinent alcoholic 3009 67840 F10.21 for 2-3 months now Infection of tooth 11762 8007 K04.7 [id number] MD Michelle Aguayo 14 IM [address] [facility] [place] [address] 01/25/2023 11:44:22 01/31/2023 15:57:07 Atypical chest pain 242830739 R07.89 Type 2 anoop betes mellitus 94971499 E11.9 improved since 05-24-22 when it was 11.1 Hypomagnesemia 684909308 E83.42 Smoker 79389203 F17.200 pt. currently vapes does not smoke cigarettes [id number] MD Michelle Porras 14 [address] [facility] [place] [address] 02/02/2023 09:49:00 02/06/2023 11:35:32 Body mass index 25-29 - overweight 924923586 Z68.28 Gastroesop hageal reflux disease 588018302 K21.9 Chest pain likely GERD as cardiac etiology was ruled out after negative cardiac cathPatien t to dc famotidine , start pantoprazo le 40mg dailyRTC in 3 months if symptoms have not improved Oxygen sat uration below reference range 293352649 R79.81 Initial 90%. Repeat 94%. Patient does have COPD. 94% closer to what patient's baseline has been in office. Patient did say he is around 90% at home. Not on oxygen.Pul monology will continue to monitor. Obstructiv e sleep apnea syndrome 99447328 G47.33 Patient with witnessed apneic episodesMe ant to get sleep study - never doneOrdere d today - prefers home sleep study Tetanus di phtheria and acellular pertussis vaccination declined 5640246084 9501706 Z28.20 [id number] MD Michelle Aguayo 14 [address] [facility] [place] [address] 07/04/2023 10:04:14 07/05/2023 11:45:42 Blister of nose with infection 09800923 L08.9 Type 2 anoop betes mellitus 69999525 E11.9 per endocrinol ogist Sommer Robles Personality disorder 334 43677 F69 [id number] MD Michelle Aguayo 14 [address] [facility] [place] [address] 10/01/2023 11:23:51 10/03/2023 11:41:31 Chronic obstructive pulmonary disease 77047933 J44.9 Overweight 577729401 E66 .3 Type 2 anoop betes mellitus 66774049 E11.9 per endocrinol ogist Sommer Robles Constipation 86318842 K5 9.00 [id number] MD Michelle Aguayo 14 [address] [facility] [place] [address] 04/09/2024 11:38:16 04/16/2024 16:01:11 Type 2 diabetes mellitus 19146678 E11.9 per endocrinol ogist Sommer Robles Gastroesop hageal reflux disease 465312437 K21.00 Costal chondritis 338983 04 M94.0 Under care of belt cutter 360250001 Z76.89 pt was encouraged to keep appts with this specialist [id number] MD Michelle Aguayo 14 [address] [facility] [place] [address] 06/05/2024 10:45:26 06/10/2024 09:33:08 Hematochezia 787806834 K92.1 Pt describes a hx of this--not today or yesterday, but about a week ago; pt is already on famotidine and pantoprazo le Chronic ob structive pulmonary disease 66083343 J44.9 Essential hypertension 11688970 I10 Type 2 anoop betes mellitus 64976127 E11.9 per endocrinol ogist Sommer Robles Positive s creening for depression on PHQ-9 (Patient Health Questionnaire 9) 1711967358 44629 Z13.31 PHQ=08/28 Health Concerns Section Related Observation LastModified by Organization Detai ls LastModified Time None Recorded Concern Status LastModified by Organization Details LastModified Time None Recorded Advance Directives Directive N: Payers Insurance Date Sequence Insurance Name Policy Number Policy Crespo Covered Member ID Crespo Member ID Guarantor Name 06/05/2024 1 [facility] ON OR AFTER 12/02/20 (MEDICAID REPLACEMENT - HMO) Keaton Oretga [id number] Keaton Ortega 05/08/2024 1 [facility] PRIOR TO 12/02/2020 (MEDICAID REPLACEMENT - HMO) Keaton Ortega [id number] Keaton Ortega Notes Date Note Type Note Provider Name and Address Organization Details Recorded Time 02/02/2023 text/html 52 yo male with hx of HTN, COPD (followed by pulm), DMII (followed by endocrinology), and GERD who presents for ongoing chest pain s/p hospital discharge. Chest pain is left sided, sharp, intermittent, sometimes associated with food. No palpitations, no lightheadedness, no headache, no diaphoresis, no radiation of pain. In the hospital, had reassuring ECG with NSR and had cath which showed mild to moderate coronary artery disease. No stenting or intervention needed. Cardiology said that chest pain was not cardiac in nature based on findings. Patient was started on ASA 81mg during his stay. Patient has had GERD for decades. He reports he was taking pantoprazole 40mg since he was a kid and working well for his symptoms. Was changed to famotidine a while back and does not work per patient. His chest pain occurs both with and without eating. Avoids trigger foods such as spicy, acidic foods, alcohol. Patient reported snoring and witnessed apneic episodes. Was supposed to get a sleep study a while back.Just saw opthalmologist - no concerns Nneka Perry MD Attn: Accounting,[address] [facility], [place], [address], [facility] 02/02/2023 17:50:37 07/04/2023 text/html Per intake note. Pt complains about medical care received on this side of the export. El Reese MD Attn: Accounting,[address] [facility], [place], [address], [facility] 07/05/2023 07:05:48 10/01/2023 text/html Per intake note. El villalta MD Attn: Accounting,[address] [facility], [place], [address], [facility] 10/03/2023 08:34:13 04/09/2024 text/html Followup to rece hospitalization from March 07-2023. Pt continues to state that everything hurts including the veins in his arms. El Reese MD Attn: Accounting,[address] [facility], [place], [address], [facility] 04/12/2024 07:35:59 06/05/2024 text/html This visit repre sents a followup to an ER visit in April 2024. Pt continues to be a poor historian and gives the complaints as mentioned in the intake note. El Reese MD Attn: Accounting,[address] [facility], [place], [address], [facility] 06/09/2024 16:46:33
--- OUTSIDE RECORDS SUMMARY | 2024-12-07 11:59 | XMS_ITS | Encounter Summary ---
Author Organization [facility] Address [address] [place] [address] Care Team Providers Care Senior Mobile Solutions Architect Name Role Phone El Reese MD Primary Care Provider [phone] Reason for Visit * Reason Comments Refill Request Encounter Details Date Type Department Care Team (Late st Contact Info) Description 08/25/[address] [address] Flash Calvillo MD [address] [place] [address] [place] [address] Refill Request Social History Tobacco Use Types [...] as of this encounter Care Teams Senior Mobile Solutions Architect Relationship Specialty Start Date End Date El Reese MD [address] [facility] [place] [id number] PCP - General Family Medicine 05/11/20 documented as of this encounter
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
--- OUTSIDE RECORDS SUMMARY | 2024-12-07 12:00 | XMS_ITS | Encounter Summary ---
Author Organization [facility] Address [address] [address] Phone Care Team Providers Care Consumer Banker Name Role Phone Casimiro Onofre MD Primary Care Provider [phone] Deb Krishnan MD Unavailable [phone] lE Reese MD Primary Care Provider [phone] Reason for Visit * Reason Comments Medication Refill Encounter Details Date Type Department Care Team (Late st Contact Info) Description 01/02/2020 Refill [facility] PULMON[facility] [address] [place] [address] Scott Mendoza MD [address] [place] [id number] Medication Refill Social History Tobacco Use Types Packs/Day Years Used Date Smoking Tobacco: Heavy Smoker Cigarettes 1 20 Smokeless Tobacco: Never Alcohol Use Standard Drinks/Week [...] PM CDT Sexual Orientation Not on file COVID-19 Exposure Response Date Recorded In the last month, have you been in contact with someone who was confirmed or suspected to have Coronavirus / COVID-19? 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
--- OUTSIDE RECORDS SUMMARY | 2024-12-07 12:00 | XMS_ITS | Encounter Summary ---
Author Organization [facility] Address [address] [place] [address] Phone Care Team Providers Care Manager Assurance Name Role Phone Casimiro Onofre MD Primary Care Provider [phone] Deb Krishnan MD Unavailable [phone] El Reese MD Primary Care Provider [phone] Reason for Visit * Reason Comments Medication Refill Encounter Details Date Type Department Care Team (Late st Contact Info) Description 2019 Refill [facility] [address] [place] [address] Casimiro Onofre MD #[address] [address] Medication Refill Social History Tobacco Use Types Packs/Day Years Used Date Smoking Tobacco: Heavy Smoker Cigarettes 1 20 Smokeless Tobacco: Never Alcohol Use Standard Drinks/Week Comments Yes 0 (1 standard drink = 0.6 oz pur e alcohol) PHQ-2 Answer Date Recorded PHQ-2 Score 18 02/07/2019 Sexually Active Control Partners Comments Yes Female Sex and Gender Information Value Date Recorded Sex Assigned at Male 01/23/2023 7:54 PM CDT Legal Sex Male 10:18 PM CDT Gender Identity Male 01/23/2023 7:54 PM CDT Sexual Orientation Not on file documented as of this encounter Miscellaneous Notes * Telephone Encounter - Bernice [place] RN - 12/19/2019 11:56 AM CDT See encounter from 2019. 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
--- OUTSIDE RECORDS SUMMARY | 2024-12-07 12:00 | XMS_ITS | Encounter Summary ---
Author Organization [facility] Address [address] [place] [address] Phone Care Team Providers Care Junior Systems Administrator Name Role Phone Deb Krishnan MD Unavailable [phone] El Reese MD Primary Care Provider [phone] Reason for Visit * Reason Comments Medication Refill Encounter Details Date Type Department Care Team (Late st Contact Info) Description 10/28/2020 Refill [facility] [address] [place] [address] Kori Henradez APRN, WEAVING INSTRUCTOR #[address] [address] Medication Refill Social History Tobacco Use Types [...] 19 05/29/2023 05/29/2023 06/08/2023 12:1 6 AM 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
--- OUTSIDE RECORDS SUMMARY | 2024-12-07 12:00 | XMS_ITS | Continuity of Care Document ---
Author Organization [facility] Address [address] [place] [address] [place] [address] Phone Care Team Providers Care Hot Mill Operator Name Role Phone Humberto Herrmann MD Unavailable Unavailable Allergies, Adverse Reactions, Alerts Substance Reaction Status Criticality No Known Allergies Active No Inform ation Medications Medication Instructions Dosage Effective Dates (start - stop) Status Comments Cheratussin AC 10 mg-100 mg/5 mL Oral Liquid take 5 milliliter by oral route every 4 hours as needed 5 milliliter - Active disp 100 ml, PRN for cough, avoid driving or operate machines Lipitor 40 mg tablet take 1 tablet (40MG) by oral route every day 40 MG - Active lisinopril 10 mg tablet take 1 tablet (10MG) by oral route every day 10 MG - Active Vicodin ES 7.5 mg-750 mg tablet take 1 tablet by oral route 2 times every day - Active avoid driving or operate machines Xanax 1 mg tablet take 1 tablet (1MG) by oral route 3 times every day 1 MG - Active Lantus 100 unit/mL Sub-Q inject by subcutaneous route as per insulin protocol 0.00 - Active 30 units qhs metformin 1,000 mg tablet take 1 tablet (1000MG) by oral route 2 times every day with morning and evening meals 1000 MG - Active Procedures Procedure Date OFFICE/OUTPATIENT VISIT, EST OFFICE/OUTPATIENT VISIT, EST OFFICE/OUTPATIENT VISIT, EST OFFICE/OUTPATIENT VISIT, EST OFFICE/OUTPATIENT VISIT, EST OFFICE/OUTPATIENT VISIT, EST OFFICE/OUTPATIENT VISIT, EST OFFICE/OUTPATIENT VISIT, EST OFFICE/OUTPATIENT VISIT, EST OFFICE/OUTPATIENT VISIT, EST OFFICE/OUTPATIENT VISIT, EST OFFICE/OUTPATIENT VISIT, EST Advance Directives Directive Yes / No Effective Date File Name No Information Encounters Encounter Description Practice Location Reason(s) For Visit Diagnoses Date Provider Providers Copied on Encounter [facility], [address], [place], [place], [address], [place] tel:[phone] [facility] No Information [address], [place], [place], [address] , [place]. [phone] Referring Provider: Madeline Patel [address], [place], [place], [address]. tel:[phone] OFFICE/OUTPA TIENT VISIT, [facility], [place], [address], [place], [place], [address], [place] tel:[phone] [facility] anxiety (chief complaint) chest pain (chief complaint) back pain (chief complaint) cough (chief complaint) Dietary surveillance and counselingGeneraliz ed anxiety disorderHypertensio n, UnspecifiedCAD, [place] [address]. [address], [place], [place], [address] , [place]. tel:[phone] Referring Provider: Madeline Patel [address], [place], [place], [address]. tel:[phone] OFFICE/OUTPA TIENT VISIT, [facility], [place], [address], [place], [place], [address], [place] tel:[phone] [facility] chest pain (chief complaint) Chest Tightness 3 [address], [place], [place], [address] , [place]. tel:[phone] Referring Provider: Madeline Patel [address], [place], [place], [address]. tel:[phone] OFFICE/OUTPA TIENT VISIT, [facility], [place], [address], [place], [place], [address], [place] tel:[phone] [facility] anxiety (chief complaint) back pain (chief complaint) HTN (chief complaint) Dietary surveillance and counselingGeneraliz ed anxiety disorderHypertensio n, UnspecifiedLumbago Nov- 3 [place]. [address], [place], [place], [address] , [place]. [phone] Referring Provider: Madeline Patel [address], [place], [place], [address]. tel:[phone] OFFICE/OUTPA TIENT VISIT, [facility], [place], [address], [place], [place], [address], [place] tel:[phone] [facility] back pain (chief complaint) anxiety (chief complaint) DM (chief complaint) Diabetes Mellitus, Adult Onset, UncontrolledHyperte nsion, UnspecifiedLumbago October- 3 [address], [place], [address] , [place]. [phone] Referring Provider: Madeline Patel [address], [place], [place], [address]. tel:[phone] OFFICE/OUTPA TIENT VISIT, [facility], [place], [address], [place], [place], [address], [place] tel:[phone] [facility] back pain (chief complaint) anxiety (chief complaint) DM (chief complaint) Dietary surveillance and counselingLumbagoHy pertension, UnspecifiedOther and unspecified hyperlipidemia Sep-0 3 [address], [place], [place], [address] , [place]. [phone] Referring Provider: Madeline Patel [address], [place], [place], [address]. tel:[phone] [facility], [address], [place], [place], [address], [place] tel:[phone] [facility] No Information 3 [address], [place], [place], [address] , [place]. tel:[phone] OFFICE/OUTPA TIENT VISIT, [facility], [place], [address], [place], [place], [address], [place] tel:[phone] [facility] back pain (chief complaint) anxiety (chief complaint) DM (chief complaint) Dietary surveillance and counselingDiabetes Mellitus, Adult Onset, UncontrolledLumbago Generalized anxiety disorder 3 [address], [place], [place], [address] , [place]. tel:[phone] Referring Provider: Madeline Patel [address], [place], [place], [address]. tel:[phone] OFFICE/OUTPA TIENT VISIT, [facility], [place], [address], [place], [address], [place] tel:[phone] [facility] back pain (chief complaint) HTN (chief complaint) HLP (chief complaint) DM. (chief complaint) Dietary surveillance and counselingDiabetes Mellitus, Adult Onset, UncontrolledHyperte nsion, UnspecifiedLumbago 3 [address] Franc[address], [place], [place], [address] , [place]. tel:[phone] Referring Provider: Madeline Patel [address], [place], [place], [address]. tel:[phone] OFFICE/OUTPA TIENT VISIT, [facility], [place], [address], [place], [place], [address], [place] tel:[phone] [facility] back pain (chief complaint) DM. (chief complaint) anxiety (chief complaint) Dietary surveillance and counselingLumbagoDi abetes Mellitus Type 2, UncomplicatedHypert ension, Unspecified 2 [address], [place], [place], [address] , [place]. tel:[phone] Referring Provider: Madeline Patel [address], [place], [place], [address]. tel:[phone] OFFICE/OUTPA TIENT VISIT, [facility], [place], [address], [place], [place], [address], [place] tel:[phone] [facility] insulin loss (chief complaint) Diabetes Mellitus, Adult Onset, Uncontrolled May-0 2 [address], [place], [place], [address] , [place]. [phone] Referring Provider: Madeline Patel [address], [place], [place], [address]. tel:[phone] OFFICE/OUTPA TIENT VISIT, [facility], [place], [address], [place], [place], [address], [place] tel:[phone] [facility] DM (chief complaint) anxiety (chief complaint) hernia (chief complaint) foot pain (chief complaint) Dietary surveillance and counselingOther and unspecified hyperlipidemiaDiabe estephania Mellitus, Adult Onset, UncontrolledGeneral ized anxiety disorder 3 0 2 [address], [place], [place], [address] , [place]. [phone] Referring Provider: Madeline Patel [address], [place], [place], [address]. tel:[phone] OFFICE/OUTPA TIENT VISIT, [facility], [place], [address], [place], [place], [address], [place] tel:[phone] [facility] hernia (chief complaint) DM (chief complaint) anxiety (chief complaint) Dietary surveillance and counselingDiabetes Mellitus, Adult Onset, UncontrolledGeneral ized anxiety disorderOther and unspecified hyperlipidemia 0 2- 2 [address]. [address], [place], [place], [address] , [place]. tel:[phone] Referring Provider: Madeline Patel [address], [place], [place], [address]. tel:[phone] OFFICE/OUTPA TIENT VISIT, EST [facility], [address], [place], [place], [address], tel:[phone] [facility] diabetes (follow up) (chief complaint) hyperlpide lissette (chief complaint) hernia (chief complaint) back pain (chief complaint) Diabetes Mellitus, Adult Onset, UncontrolledOther and unspecified hyperlipidemiaHerni a of other specified sites without mention of obstruction or gangreneDietary surveillance and counseling 2 [place]. [address] [facility] [place], [address] , . tel:[phone] Referring Provider: Humberto Herrmann, [address] [facility] [address], [place], [place], [address]. tel:[phone] Family History Family Member Type Diagnosis Age At Onset Mother Problem (finding) Diabetes mellitus Father Problem (finding) Diabetes mellitus Brother Problem (finding) Diabetes mellitus Mother Problem (finding) Coronary artery disease Father Problem (finding) Asthma Payers Payer name Insurance type Covered green party ID Authoriza tion(s) No Information Social History Type Description Quantity Date Captured Comments Sex Male Smoking Status No Information Chief Complaint And Reason For Visit No Information Plan Of Treatment Date Type Action Status Goal Tobacco cessation counseling completed Goal Tobacco cessation counseling completed Goal Tobacco cessation counseling completed Goal Tobacco cessation counseling completed Goal Tobacco cessation counseling completed Goal Tobacco cessation counseling completed Goal Tobacco cessation counseling completed Goal Tobacco cessation counseling completed Goal Tobacco cessation counseling completed Referral Ordered: Referral: Cardiology. Evaluate and treat. ordered Referral Ordered: MRI LUMBAR SPINE W/O DYE ordered Referral Ordered: Referral: Endocrinology. ordered Referral Ordered: FOOT XRAY 3+ VIEWS Left ordered Referral Ordered: Ophthalmology (related to Diabetes Mellitus, Adult Onset, Uncontrolled) ordered Referral Ordered: Genrl Surg (related to Hernia of other specified sites without mention of) ordered Referral Ordered: Referral: Ophthalmology. ordered Referral Ordered: Referral: Genrl Surg. ordered History Of Present Illness Encounter Date Complaint History Of Prese nt Illness No Information Instructions Date Instruction Additional Infor ana Dietary counseling Related to Di etary surveillance counseling Decrease caloric intake Related to Dietary surveillance counseling Dietary counseling Related to Di etary surveillance counseling Decrease caloric intake Related to Dietary surveillance counseling Decrease caloric intake Related to Dietary surveillance counseling Dietary counseling Related to Di etary surveillance counseling Dietary counseling Related to Di etary surveillance counseling Decrease caloric intake Related to Dietary surveillance counseling Decrease caloric intake Related to Dietary surveillance counseling Dietary counseling Related to Di etary surveillance counseling Dietary counseling Related to Di etary surveillance counseling Decrease caloric intake Related to Dietary surveillance counseling Decrease caloric intake Related to Dietary surveillance counseling Dietary counseling Related to Di etary surveillance counseling Decrease caloric intake Related to Dietary surveillance counseling Dietary counseling Related to Di etary surveillance counseling Decrease caloric intake Related to Dietary surveillance counseling Dietary counseling Related to Di etary surveillance counseling Assessments Type Assessment Date No Information
--- OUTSIDE RECORDS SUMMARY | 2024-12-07 12:00 | XMS_ITS | Encounter Summary ---
Author Organization [facility] Address [address] [place] [address] Phone Care Team Providers Care Quality Consultant Name Role Phone Deb Krishnan MD Unavailable [phone] El Reese MD Primary Care Provider [phone] Reason for Visit * Reason Comments Medication Refill Encounter Details Date Type Department Care Team (Late st Contact Info) Description 07/05/2021 Refill [facility] [address] [place], [place] [id number] Casimiro Onofre MD #[address] [address] Medication Refill Social History Tobacco Use Types Packs/Day Years Used Date Smoking Tobacco: Heavy Smoker Cigarettes 1 20 Cigars Smokeless Tobacco: Never Alcohol Use Standard Drinks/Week Comments Not Currently [...] encounter Miscellaneous Notes * Telephone Encounter - Melissa Lincoln RN - 07/05/2021 4:07 PM CST PCP is listed as El Reese MD UE KILN DRAWER documented in this encounter Plan of Treatment Not on file documented as of this encounter Visit Diagnoses Not on filedocumented in this encounter Additional Health Concerns Infection Onset Date Last Indicated Resolved Time COVID - 19 05/29/2023 05/29/2023 06/08/2023 12:1 6 AM BISQUE KILN DRAWER Assessment Noted Time PHQ-9 Depression Total Score: 0 12/23/19 20 1:43 PM CDT documented as of this encounter Care Teams Quality Consultant Relationship Specialty Start Date End Date El Reese MD [address] [place] [address] [address] [place] [address] PCP - General Family Medicine 09/13/20 Deb Krishnan MD Consulting Physician Urology 04/03/16 documented as of this encounter
--- OUTSIDE RECORDS SUMMARY | 2024-12-07 12:00 | XMS_ITS | Continuity of Care Document ---
Author Organization [facility] Address [address] [place] [address] [place] [address] Phone Care Team Providers Care Cleaner And Polisher Name Role Phone Blas Zarco DO Unavailable Unavailable Advance Directives Directive Yes / No Effective Date File Name No Information Encounters Encounter Description Practice Location Reason(s) For Visit Diagnoses Date Provider Providers Copied on Encounter [facility], [address] [place] [address] [address], [place], [place], [address], [place] tel:[phone] [facility] No Information Haroldo Richey. [address] [facility], [place], [address], [place]. tel: [phone] Family History Family Member Type Diagnosis Age At Onset No Information Payers Payer name Insurance type Covered alliance party ID Authoriza tion(s) No Information Social History Type Description Quantity Date Captured Comments Sex Male Smoking Status No Information Chief Complaint And Reason For Visit No Information Reason For Referral Reason For Referral No Information History Of Present Illness Encounter Date Complaint History Of Prese nt Illness No Information Functional Status Date Functional Assessmen t No Information Instructions Date Instruction Additional Infor mation No Information Assessments Type Assessment Date No Information Patient Care Teams Name Effective Dates (start - stop) Status Members No Information
--- OUTSIDE RECORDS SUMMARY | 2024-12-07 12:00 | XMS_ITS | Encounter Summary ---
Author Organization [facility] Address [address] [place] [address] Phone Care Team Providers Care Laundry Presser Name Role Phone Casimiro Onofre MD Primary Care Provider [phone] Deb Krishnan MD Unavailable [phone] El Reese MD Primary Care Provider [phone] Reason for Visit * Reason Comments Medication Refill Encounter Details Date Type Department Care Team (Late st Contact Info) Description 2019 Refill [facility] [address] [place] [address] Casimiro Onofre MD #[address] [address] Medication Refill Social History Tobacco Use Types [...] Encounter - Bernice Bay RN - 12/19/2019 12:10 PM CDT See encounter from 713-20 20. Left message for pt to call office [...] 19 05/29/2023 05/29/2023 06/08/2023 12:1 6 AM VETERINARY RECEPTIONIST Assessment Noted Time PHQ-9 Depression Total Score: 18 019 5:51 PM CDT documented as of this encounter Care Teams Laundry Presser Relationship Specialty Start Date End Date Casimiro Onofre MD [address] [address] PCP - General Family Medicine 05/07/15 01/26/20 El Reese MD [facility] [address] [place] [address] PCP - General Family Medicine 09/13/20 Deb Krishnan MD [address] [address] Consulting Physician Urology 04/03/16 documented as of this encounter
--- OUTSIDE RECORDS SUMMARY | 2024-12-07 12:00 | XMS_ITS | Encounter Summary ---
Author Organization [facility] Address [address] [place] [address] Phone Care Team Providers Care Repair Armature Winder Helper Name Role Phone Casimiro Onofre MD Primary Care Provider [phone] Deb Krishnan MD Unavailable [phone] El Reese MD Primary Care Provider Reason for Visit * Reason Comments Medication Refill Encounter Details Date Type Department Care Team (Late st Contact Info) Description 2019 Refill [facility] [address] [place] [address] Casimiro Onofre MD #[address] [address] Medication Refill Social History Tobacco Use Types [...] Encounter - Bernice Bay RN - 12/19/2019 11:54 AM CDT See refill encounter from 2019. Left message for pt to call office to make an appointment on home number documented in this encounter Plan of Treatment Not on file documented as of this encounter Visit Diagnoses Not on filedocumented in this encounter Additional Health Concerns Infection Onset Date Last Indicated Resolved Time COVID - 19 03/08/2021 03/08/2021 03/28/2021 12:1 8 AM CDT COVID - 19 05/29/2023 05/29/2023 06/08/2023 12:1 6 AM ROUTER OPERATOR RADIAL Assessment Noted Time PHQ-9 Depression Total Score: 18 019 5:51 PM CDT documented as of this encounter Care Teams Repair Armature Winder Helper Relationship Specialty Start Date End Date Casimiro Onofre MD [address] [address] PCP - General Family Medicine 05/07/15 01/26/20 El Reese MD [address] [place] [address] [address] [facility] [place] [address] PCP - General Family Medicine 09/13/20 Deb Krishnan MD [address] [address] Consulting Physician Urology 04/03/16 documented as of this encounter
--- OUTSIDE RECORDS SUMMARY | 2024-12-07 12:00 | XMS_ITS | Encounter Summary ---
Author Organization [facility] Address [address] [place] [address] Phone Care Team Providers Care Air Export Operations Agent Name Role Phone Casimiro Onofre MD Primary Care Provider [phone] Deb Krishnan MD Unavailable [phone] El Reese MD Primary Care Provider [phone] Reason for Visit * Reason Comments Medication Refill Encounter Details Date Type Department Care Team (Late st Contact Info) Description [address] [facility] [address] [place] [address] Raul Austin MD [address] [place] [address] Medication Refill Social History Tobacco Use Types [...] Encounter - Bernice Bay RN - 12/19/2019 11:37 AM CDT Last OV 11/28/2018 Attempted to call mobile number, busy signal. Called the home number Left message for pt to call office to make an appointment. documented in this encounter Plan of Treatment Not on file documented as of this encounter Visit Diagnoses Not on filedocumented in this encounter Additional Health Concerns Infection Onset Date Last Indicated Resolved Time COVID - 19 03/08/2021 03/08/2021 03/28/2021 12:1 8 AM CDT COVID - 19 05/29/2023 05/29/2023 06/08/2023 12:1 6 AM BATCH STILL OPERATOR Assessment Noted Time PHQ-9 Depression Total Score: 18 019 5:51 PM CDT documented as of this encounter Care Teams Air Export Operations Agent Relationship Specialty Start Date End Date Casimiro Onofre MD [address] [address] PCP - General Family Medicine 05/07/15 01/26/20 El Reese MD [address] [place] [address] [address] [place] [address] PCP - General Family Medicine 09/13/20 Deb Krishnan MD [id number] [address] Consulting Physician Urology 04/03/16 documented as of this encounter
--- OUTSIDE RECORDS SUMMARY | 2024-12-07 12:00 | XMS_ITS | Encounter Summary ---
Author Organization [facility] Address [address] [place] [address] Phone Care Team Providers Care Jig Builder Name Role Phone Casimiro Onofre MD Primary Care Provider [phone] Deb Krishnan MD Unavailable [phone] El Reese MD Primary Care Provider [phone] Reason for Visit * Reason Comments Medication Refill Encounter Details Date Type Department Care Team (Late st Contact Info) Description 01/24/2020 Refill [facility] [address] [place] [address] Casimiro Onofre MD [address] [address] Medication Refill Social History Tobacco Use Types [...] encounter Miscellaneous Notes * Telephone Encounter - Kori Hernadez APN, CNP - 01/26/2020 10:59 PM CDT I refused the trazodone due to history of non compliance and substance abuse. The patient needs to follow up with his PCP to discuss restarting trazodone. * Telephone Encounter - Bernice Bay RN - 01/26/2020 1:55 PM CDT Medication failed the protocol, provider to review and approve the medication order. Requested Prescriptions Pending Prescriptions Disp Refills fluticasone (FLONASE) 50 MCG/ACT Suspension [Pharmacy Med Name: FLUTICASONE PROP 50 MCG SPR 50 ELIGIO]48 g 1 Si-2 SPRAYS EACH NOSTRIL DAILY FOR NASAL CONGESTION AND ALLERGIES. Ear, Nose, and Throat: Nasal Preparations - Corticosteroids Passed - 01/24/2020 8:04 AM Passed - Valid encounter within last 12 months Past Office Visits Recent Outpatient Visits 1 month ago Essential hypertension [facility] Kori Hernadez APN, CNP 1 year ago Radicular pain in left arm [facility] Casimiro Onofre MD 1 year ago Mass of left side of neck [facility] Casimiro Onofre MD 1 year ago Abscess of right buttock [facility] oKri Hernadez APN, CNP 1 year ago Upper respiratory tract infection, unspecified type [facility] Vicky Dumas, PAC Upcoming Appointments JIGMAKER - Recent and Past Visits Recent Visits Date Type Provider Dept 12/23/19 Office Visit Kori Hernadez APN, CNP [facility] 11/28/18 Office Visit Casimiro Onofre MD [facility] 11/12/18 Office Visit [facility]imiro [facility] Showing recent visits within past 460 days with a meds authorizing provider and meeting all other requirements Future Appointments No visits were found meeting these conditions. Showing future appointments within next 90 days with a meds authorizing provider and meeting all other requirements traZODone (DESYREL) 50 MG Tablet [Pharmacy Med Name: TRAZODONE HCL 50 MG TAB 50 TAB] 90 Tab 2 Sig: TAKE 1 TAB BY MOUTH NIGHTLY. Not Delegated - Psychiatry: Antidepressants - Serotonin Reuptake Inhibitor/Antagonist Failed - 01/24/2020 8:04 AM Failed - This refill cannot be delegated Passed - Valid encounter within last 12 months Past Office Visits Recent Outpatient Visits 1 month ago Essential hypertension [facility] Kori Hernadez APN, LOAN CLOSER 1 year ago Radicular pain in left arm [facility] Casimiro Onofre MD 1 year ago Mass of left side of neck [facility] Primary Care Casimiro Onofre MD 1 year ago Abscess of right buttock [facility] Kori Hernadez APN, LOAN CLOSER 1 year ago Upper respiratory tract infection, unspecified type [facility] - Primary Care Vicky Dumas, [facility] Upcoming Appointments JIGMAKER - Recent and Past Visits Recent Visits Date Type Provider Dept 12/23/19 Office Visit Kori Hernadez APN, KRISTOFER [facility] 11/28/18 Office Visit Casimiro Onofre MD [facility] 11/12/18 Office Visit [facility] Showing recent visits within past 460 days with a meds authorizing provider and meeting all other requirements Future Appointments No visits were found meeting these conditions. Showing future appointments within next 90 days with a meds authorizing provider and meeting all other requirements documented in this encounter Plan of Treatment Not on file documented as of this encounter Visit Diagnoses Not on filedocumented in this encounter Additional Health Concerns Infection Onset Date Last Indicated Resolved Time COVID - 19 03/08/2021 03/08/2021 03/28/2021 12:1 8 AM CDT COVID - 19 05/29/2023 05/29/2023 06/08/2023 12:1 6 AM REGISTERED NURSE OBSTETRICS Assessment Noted Time PHQ-9 Depression Total Score: 0 12/23/19 1:43 PM CDT documented as of this encounter Care Teams Jig Builder Relationship Specialty Start Date End Date Casimiro Onofre MD [address] [facility] [address] [place] [address] PCP - General Family Medicine 05/07/15 01/26/20 El Reese MD 4 [facility] [address] [place] [address] PCP - General Family Medicine 09/13/20 Deb Krishnan MD [address] [facility] [place] [address] Consulting Physician Urology 04/03/16 documented as of this encounter
--- OUTSIDE RECORDS SUMMARY | 2024-12-07 12:00 | XMS_ITS | Encounter Summary ---
Author Organization [facility] Address [address] [place] [address] Phone Care Team Providers Care Head Shipper Name Role Phone Casimiro Onofre MD Primary Care Provider [phone] Deb Krishnan MD Unavailable [phone] El Reese MD Primary Care Provider [phone] Reason for Visit * Reason Comments Medication Refill Encounter Details Date Type Department Care Team (Late st Contact Info) Description 12/18/2019 Refill [facility] [address] [place] [address] Casimiro Onofre MD #[address] [address] Medication Refill Social History Tobacco Use Types [...] Telephone Encounter - Bernice Bay RN - 12/22/2019 12:01 PM CDT Requested Prescriptions Pending Prescriptions Disp Refills tamsulosin (FLOMAX) 0.4 MG Capsule [Pharmacy Med Name: TAMSULOSIN HCL 0.4 MG CAP 0.4 CAP] 90 Cap 0 Sig: TAKE ONE CAPSULE BY MOUTH EVERY DAY Urology: Benign Prostatic Hyperplasia Failed - 12/22/2019 12:01 PM Failed - Valid encounter within last 12 months Past Office Visits Recent Outpatient Visits 1 year ago Radicular pain in left arm [facility] Casimiro Onofre MD 1 year ago Mass of left side of neck [facility] Casimiro Onofre MD 1 year ago Abscess of right buttock [facility] Kori Hernadez APN, CNP 1 year ago Upper respiratory tract infection, unspecified type [facility] Vicky Dumas, DENNISE 1 year ago Type 2 diabetes mellitus without complication, with long-term current use of insulin (HCC) [facility] Casimiro Livingston MD Upcoming Appointments Future Appointments Tomorrow Kori Hernadez APN, DEPARTMENT STORE GENERAL MANAGER [facility], [facility] Failed - Last BP in normal range BP Readings from Last 1 Encounters: 10/24/19 (!) 118/98 Powered by [employer] - 12/22/2019 12:01 PM Information pending * Telephone Encounter - Bernice Bay RN - 12/22/2019 11:54 AM CDT Last OV 11/28/2018 Next OV tomorrow documented in this encounter Plan of Treatment Not on file documented as of this encounter Visit Diagnoses Not on filedocumented in this encounter Additional Health Concerns Infection Onset Date Last Indicated Resolved Time COVID - 19 03/08/2021 03/08/2021 03/28/2021 12:1 8 AM CDT COVID - 19 05/29/2023 05/29/2023 06/08/2023 12:1 6 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
--- NOTE | 2024-12-07 12:01 | ECG_ITS ---
Test Date: 2024-12-07 12:08:41 Measurements Intervals [place] Rate: 92 P: 59 MO: 154 QRS: 49 QRSD: 95 T: 44 QT: 357 QTc: 442 Interpretive Statements SINUS RHYTHM INTERPRETATION BASED ON A DEFAULT AGE OF 40 YEARS No previous ECG available for comparison Electronically Signed On 12-07-2024 13:52:25 CDT by Floyd Hall M.D.
--- OUTSIDE RECORDS SUMMARY | 2024-12-07 12:02 | XMS_ITS | Continuity of Care Document ---
Author Organization [facility] Address [address] [place] [address] [place] [address] Phone Care Team Providers Care Distribution Sales Manager Name Role Phone Blas Zarco DO Unavailable Unavailable Advance Directives Directive Yes / No Effective Date File Name No Information Encounters Encounter Description Practice Location Reason(s) For Visit Diagnoses Date Provider Providers Copied on Encounter [facility], [id number] [place] [address] [address], [place], [place], [id number], [place] tel:[phone] [facility] No Information Haroldo Richey. [address] [facility], [place], [address], [place]. tel: [phone] Family History Family Member Type Diagnosis Age At Onset No Information Payers Payer name Insurance type Covered constitution party ID Authoriza tion(s) No Information Social [...]
--- OUTSIDE RECORDS SUMMARY | 2024-12-07 12:02 | XMS_ITS | Continuity of Care Document ---
Author Organization [facility] Address [address] [place] [address] [place] [address] Phone Care Team Providers Care Violin Mechanic Name Role Phone Humberto Herrmann MD Unavailable Unavailable Allergies, Adverse Reactions, Alerts Substance Reaction Status Criticality No Known Allergies Active No Inform ation Medications Medication Instructions Dosage Effective Dates (start - stop) Status Comments Xanax 1 mg tablet take 1 tablet (1MG) by oral route 3 times every day 1 MG - Active Vicodin ES 7.5 mg-750 mg tablet take 1 tablet by oral route 2 times every day - Active avoid driving or operate machines lisinopril 10 mg tablet take 1 tablet (10MG) by oral route every day 10 MG - Active Lipitor 40 mg tablet take 1 tablet (40MG) by oral route every day 40 MG - Active Cheratussin AC 10 mg-100 mg/5 mL Oral Liquid take 5 milliliter by oral route every 4 hours as needed 5 milliliter - Active disp 100 ml, PRN for cough, avoid driving or operate machines Lantus 100 unit/mL Sub-Q inject by subcutaneous [...] Diagnoses Date Provider Providers Copied on Encounter [facility], [address], [place], [place], [address], [place] tel:[phone] [facility] No Information [address] Monte[address]. [address], [place], [place], [address] , [place]. [phone] Referring Provider: Madeline Patel [address], [place], [place], [address]. tel:[phone] OFFICE/OUTPA TIENT VISIT, [facility], [address], [place], [place], [address], [place] tel:[phone] [facility] anxiety (chief complaint) chest pain (chief complaint) back pain (chief complaint) cough (chief complaint) Dietary surveillance and counselingGeneraliz ed anxiety disorderHypertensio n, UnspecifiedCAD, Sycuan Vessel [address] Monte[address]. [address], [place], [place], [address] , [place]. tel:[phone] Referring Provider: Madeline Patel [address], [place], [place], [address]. tel:[phone] OFFICE/OUTPA TIENT VISIT, [facility], [address], [place], [place], [address], [place] tel:[phone] [facility] chest pain (chief complaint) Chest Tightness 3 Monte[address]. [address], [place], [place], [address] , [place]. tel:[phone] Referring Provider: Madeline Patel [address], [place], [place], [address]. tel:[phone] OFFICE/OUTPA TIENT VISIT, [facility], [address], [place], [place], [address], [place] tel:[phone] [facility] anxiety (chief complaint) back pain (chief complaint) HTN (chief complaint) Dietary surveillance and counselingGeneraliz ed anxiety disorderHypertensio n, UnspecifiedLumbago Nov- 3 Montez Paul. [address], [place], [place], [address] , [place]. [phone] Referring Provider: Madeline Patel [address], [place], [place], [address]. tel:[phone] OFFICE/OUTPA TIENT VISIT, [facility], [address], [place], [place], [address], [place] tel:[phone] [facility] back pain (chief complaint) anxiety (chief complaint) DM (chief complaint) Diabetes Mellitus, Adult Onset, UncontrolledHyperte nsion, UnspecifiedLumbago October- 3 Montez Paul. [address], [place], [place], [address] , [place]. [phone] Referring Provider: Madeline Patel [address], [place], [place], [address]. tel:[phone] OFFICE/OUTPA TIENT VISIT, [facility], [address], [place], [place], [address], [place] tel:[phone] [facility] back pain (chief complaint) anxiety (chief complaint) DM (chief complaint) Dietary surveillance and counselingLumbagoHy pertension, UnspecifiedOther and unspecified hyperlipidemia Sep-0 [address], [place], [place], [address] , [place]. [phone] Referring Provider: Madeline Patel [address], [place], [place], [address]. tel:[phone] [facility], [address], [place], [address], [place] tel:[phone] [facility] No Information [address]. [address], [place], [address] , [place]. tel:[phone] OFFICE/OUTPA TIENT VISIT, [facility], [address], [place], [place], [address], [place] tel:[phone] [facility] back pain (chief complaint) anxiety (chief complaint) DM (chief complaint) Dietary surveillance and counselingDiabetes Mellitus, Adult Onset, UncontrolledLumbago Generalized anxiety disorder 3 Monte[address] Paul. [address], [place], [place], [address] , [place]. tel:[phone] Referring Provider: Madeline Patel [address], [place], [place], [address]. tel:[phone] OFFICE/OUTPA TIENT VISIT, [facility], [address], [place], [place], [address], [place] tel:[phone] [facility] back pain (chief complaint) HTN (chief complaint) HLP (chief complaint) DM. (chief complaint) Dietary surveillance and counselingDiabetes Mellitus, Adult Onset, UncontrolledHyperte nsion, UnspecifiedLumbago 3 [address], [place], [place], [address] , [place]. tel:[phone] Referring Provider: Madeline Patel [address], [place], [place], [address]. tel:[phone] OFFICE/OUTPA TIENT VISIT, [facility], [address], [place], [place], [address], [place] tel:[phone] [facility] back pain (chief complaint) DM. (chief complaint) anxiety (chief complaint) Dietary surveillance and counselingLumbagoDi abetes Mellitus Type 2, UncomplicatedHypert ension, Unspecified 2 [address], [place], [place], [address] , [place]. tel:[phone] Referring Provider: Madeline Patel [address], [place], [place], [address]. tel:[phone] OFFICE/OUTPA TIENT VISIT, [facility], [address], [place], [place], [address], [place] tel:[phone] [facility] insulin loss (chief complaint) Diabetes Mellitus, Adult Onset, Uncontrolled May-0 2 Monte[address] Paul. [address], [place], [place], [address] , [place]. [phone] Referring Provider: Madeline Patel [address], [place], [place], [address]. tel:[phone] OFFICE/OUTPA TIENT VISIT, [facility], [address], [place], [place], [address], [place] tel:[phone] [facility] DM (chief complaint) anxiety (chief complaint) hernia (chief complaint) foot pain (chief complaint) Dietary surveillance and counselingOther and unspecified hyperlipidemiaDiabe estephania Mellitus, Adult Onset, UncontrolledGeneral ized anxiety disorder 3 0 2 [address]. [address], [place], [place], [address] , [place]. [phone] Referring Provider: Madleine Patel [address], [place], [place], [address]. tel:[phone] OFFICE/OUTPA TIENT VISIT, [facility], [address], [place], [address], [place] tel:[phone] [facility] hernia (chief complaint) DM (chief complaint) anxiety (chief complaint) Dietary surveillance and counselingDiabetes Mellitus, Adult Onset, UncontrolledGeneral ized anxiety disorderOther and unspecified hyperlipidemia 0 2- 2 Monte[address] Paul. [address], [place], [place], [address] , [place]. tel:[phone] Referring Provider: Madeline Patel [address], [place], [place], [address]. tel:[phone] OFFICE/OUTPA TIENT VISIT, EST [facility], [address], [place], [place], [address], tel:[phone] [facility] Medicine diabetes (follow up) (chief complaint) hyperlpide lissette (chief complaint) hernia (chief complaint) back pain (chief complaint) Diabetes Mellitus, Adult Onset, UncontrolledOther and unspecified hyperlipidemiaHerni a of other specified sites without mention of obstruction or gangreneDietary surveillance and counseling 2 Monte[address] Paul. [address] [facility] [place], [address] , . tel:[phone] Referring Provider: Humberto Herrmann, [address] [facility] [address], [place], [place], [address]. tel:[phone] Family History Family Member Type Diagnosis Age At Onset Mother Problem (finding) Diabetes mellitus Father Problem (finding) Diabetes mellitus Brother Problem (finding) Diabetes mellitus Mother Problem (finding) Coronary artery disease Father Problem (finding) Asthma Payers Payer name Insurance type Covered alliance [...] XRAY 3+ VIEWS Left ordered Referral Ordered: Genrl Surg (related to Hernia of other specified sites without mention of) ordered Referral Ordered: Ophthalmology (related to Diabetes Mellitus, Adult Onset, Uncontrolled) ordered Referral Ordered: Referral: Ophthalmology. ordered Referral [...] caloric intake Related to Dietary surveillance counseling Assessments Type Assessment Date No Information
--- NOTE | 2024-12-07 12:03 | ED.CHESTPAIN ---
HPI - Chest Pain General Chief Complaint: Chest Pain Stated Complaint: Chest Pain/Right Eye Problem patient presents to [facility] with complaints of left-sided chest pain that began slightly last night and then was significantly worse this morning. Patient does report a history of angina did have a nitro tablets that he could take in the past but does not have those and has not taken them in many years. Patient does also report shortness of breath and dizziness At this time. No medication remedies attempted for symptoms. Patient does also report left eye pain and mild swelling to left lower eyelid denies any known injury to the eye or any other symptoms related to this including cough, sinus pain, headache, or vision changes. Denies any weakness or pain on the left side. Related Data Home Medications ?Medication ?Instructions ?Recorded ?Confirmed ?Last Taken ?Type albuterol sulfate 90 mcg/actuation See Rx Instructions .Route 02/22/23 02/22/23 Unknown History aerosol inhaler .COMPLEX PRN sob aspirin 81 mg tablet,delayed 81 mg PO DAILY 02/22/23 02/22/23 Unknown History release atorvastatin 40 mg tablet 40 mg PO DAILY 02/22/23 02/22/23 Unknown History budesonide-formoterol HFA 160 See Rx Instructions .Route .COMPLEX 02/22/23 02/22/23 Unknown History mcg-4.5 mcg/actuation aerosol inhaler (Symbicort) carvedilol 6.25 mg tablet 6.25 mg PO BID 02/22/23 02/22/23 Unknown History glipizide 5 mg tablet 5 mg PO BID 02/22/23 06/14/23 Unknown History insulin glargine 100 unit/mL (3 See Rx Instructions .Route .COMPLEX 02/22/23 02/22/23 Unknown History mL) subcutaneous pen (Basaglar KwikPen U-100 Insulin) insulin lispro 100 unit/mL See Rx Instructions .Route .COMPLEX 02/22/23 02/22/23 Unknown History subcutaneous pen (Humalog KwikPen (U-100) Insulin) metformin 1,000 mg tablet 1,000 mg PO BID 02/22/23 06/14/23 Unknown History metoclopramide HCl 10 mg tablet 10 mg PO BID 02/22/23 06/14/23 Unknown History pantoprazole 40 mg tablet,delayed 40 mg PO DAILY 02/22/23 02/22/23 Unknown History release atorvastatin 80 mg tablet mg 12/07/24 Unknown History Allergies Allergy/AdvReac Type Severity Reaction Status Date / Time No Known Allergies Allergy Unverified 02/22/23 12:17 Review of Systems Constitutional: Constitutional: Reports as per HPI, Denies chills, Denies fatigue, Denies fever(s) and Denies weakness Eyes: Eyes: Reports as per HPI Comments: Left eye pain ENT: Reports as per HPI, Denies dysphagia, Denies vertigo, Reports dizziness, Denies epistaxis, Denies nasal congestion and Denies sore throat Cardiovascular: Cardiovascular: Reports as per HPI, Reports chest pain, Denies rapid heart rate, Denies radiating jaw, neck or arm pain and Denies slow heart rate Respiratory: Respiratory: Reports as per HPI, Denies chest congestion, Denies cough, Reports dyspnea and Denies wheezing Gastrointestinal: Gastrointestinal: Reports no additional gastrointestinal complaints Genitourinary: Genitourinary: Reports no additional male genitourinary complaints Musculoskeletal: Musculoskeletal: Reports no additional musculoskeletal complaints Integumentary/Breasts: Skin/Breast: Reports as per HPI, Denies erythema and Denies rash Neurologic: Reports as per HPI, Denies headache(s), Denies numbness and Denies weakness Psychiatric: Psychiatric: Reports no additional psychiatric complaints Endocrine: Endocrine: Reports no additional endocrine complaints Hematologic/Lymphatic: Hematologic/Lymphatic: Reports no additional hematologic/lymphatic complaints Allergic/Immunologic: Allergic/Immunologic: Reports no additional allergic/immunologic complaints PMFSH Family History Family History Other Asthma Cerebrovascular accident Depression Diabetes mellitus Family history of arthritis Family history of hearing loss Family history of kidney disease Family history of lung cancer Family history of lung disease Family history of mental disorder Family history of migraine headaches Family history of seizure disorder Exam Const: General: healthy appearing Nutritional Appearance: well nourished Orientation/consciousness: patient oriented x3 Limitations: no limitations Other: fatigued HENMT: Head: normal to inspection Eyes: Conjunctivae: conjunctivae normal Pupils: Equal, round and reactive pupils present EOM: EOMs intact bilaterally Direct Ophthalmoscopy: no photophobia Other: minimal swelling left lower eyelid- no stye noted. Neck: Neck: normal visual inspection and no lymphadenopathy Chest: Chest palpation & inspection: normal inspection of the chest and no tenderness ( non reproducible pain) Resp: Effort & Inspection: normal respiratory effort Auscultation: clear to auscultation bilaterally Cardio: Rate: regular rate Rhythm: regular rhythm Heart sounds: no murmurs Skin: General skin exam: normal color Rashes: no rashes Wounds: no wounds Neuro: General: patient oriented x3 and moves all extremities Speech: normal speech Gait exam (Neuro): Normal gait present Extrem: General: normal to inspection, no clubbing, cyanosis or edema and no pedal edema Psych: Mental Status: mental status grossly normal Affect: normal affect Attitude: cooperative Course Course Level of Care: Express Care Visit Vital Signs Vital signs: Vital Signs Temperature 98.2 F 12/07/24 12:17 Pulse Rate 94 12/07/24 12:17 Respiratory Rate 16 12/07/24 12:17 Blood Pressure 122/72 12/07/24 12:17 Pulse Oximetry 96 12/07/24 12:17 Oxygen Delivery Room Air 12/07/24 12:17 Temperature 98.2 F 12/07/24 12:17 Pulse Rate 94 12/07/24 12:17 Respiratory Rate 16 12/07/24 12:17 Blood Pressure 122/72 12/07/24 12:17 Pulse Oximetry 96 12/07/24 12:17 Oxygen Delivery Room Air 12/07/24 12:17 MDM - Chest Pain MDM Narrative Medical decision making narrative: Spoke with patient about overall symptoms recommended transfer to the emergency room. Daughter here to drive patient to the emergency room, declines ambulance transfer. Patient will be going to [facility]. EKG normal in clinic today. Report called to [facility]. Malgorzata ANTONIO for Dr. Musa. Differential Diagnosis Differential diagnosis: Likely stable angina, unstable angina pectoris, atypical chest pain and chest pain Medical Records Data Attestation: I reviewed the patient's medical records. ECG Data EKG #1: ECG completion date: 12/07/24 Prior ECG tracings: not available for review Ischemic changes: other (none ) Interpretation: normal EKG EKG Interpretation: normal rate Discharge Plan Discharge Clinical Impression: Chest pain, Acute left eye pain Patient Disposition: [facility] Condition: Stable Patient Language: Kazakh Prescriptions: No Action atorvastatin 40 mg tablet 40 mg PO DAILY carvedilol 6.25 mg tablet 6.25 mg PO BID aspirin 81 mg tablet,delayed release (DR/EC) 81 mg PO DAILY pantoprazole 40 mg tablet,delayed release (DR/EC) 40 mg PO DAILY metformin 1,000 mg tablet 1,000 mg PO BID albuterol sulfate 90 mcg/actuation HFA aerosol inhaler See Rx Instructions .ROUTE .COMPLEX PRN (Reason: sob) Rx Instructions: as prescribed glipizide 5 mg tablet 5 mg PO BID metoclopramide HCl 10 mg tablet 10 mg PO BID insulin lispro [Humalog KwikPen Insulin] 100 unit/mL insulin pen See Rx Instructions .ROUTE .COMPLEX Rx Instructions: as prescribed budesonide-formoterol [Symbicort] 160-4.5 mcg/actuation HFA aerosol inhaler See Rx Instructions .ROUTE .COMPLEX Rx Instructions: as prescribed insulin glargine [Basaglar KwikPen U-100 Insulin] 100 unit/mL (3 mL) insulin pen See Rx Instructions .ROUTE .COMPLEX Rx Instructions: as prescribed atorvastatin 80 mg tablet doxycycline monohydrate 100 mg tablet 100 mg PO BID 7 Days Qty: 14 0RF Follow-up/Referrals: Joy,El Stallings MD [Primary Care Provider] - Time of Disposition: 12:29
[2024-12-07 12:17] VITALS: BP 122/72; PULSE 94; RESP 16; TEMP 36.8; O2SAT 96
== END 2024-12-07 12:22 | disposition short-term general hospital (02) ==
PROVIDERS: Emergency Provider Nurse Practitioner Family; PCP Family Medicine
DX: R07.9 Chest pain, unspecified (principal); H57.12 Ocular pain, left eye
CPT/HCPCS: 93005; 99213; G0463